=== PATIENT | female | born 1940 | race Hispanic/Latino ===

== ENCOUNTER 2019-11-03 06:38 | Inpatient (IN) | payer OTHER ==
[2019-11-03 07:47] LABS: Absolute Lymphocytes (CBC) 2.5 K/uL (0.7-4.9); Basophils % 0.6 % (0-1.3); Hematocrit 43.2 % (36.0-45.0); Lymphocytes % 20.7 % (15.3-44.8); MPV 9.8 fL (7.6-11.3); RBC Red Blood Cell Count 4.61 M/uL (3.86-4.86)
[2019-11-03] MEDS ORDERED: ONDANSETRON 4 MG/2 ML VIAL ONE (07:55)
[2019-11-03] MEDS ORDERED: MORPHINE 4 MG/ML SYR ONE (07:55)
[2019-11-03 08:11] LABS: Albumin 2.8 g/dL (3.4-5.0); Bilirubin Direct 0.2 mg/dL (0-0.2); Bilirubin Total 0.6 mg/dL (0.2-1.0); Potassium 3.6 mmol/L (3.5-5.1); Protein, Total 7.3 g/dL (6.4-8.2)
--- NOTE | 2019-11-03 10:20 | RAD REPORT ---
EXAM DESCRIPTION: CTAbdomen Pelvis W Contrast - 11/03/2019 10:07 am CLINICAL HISTORY: Abdominal pain. abd pain COMPARISON: CT ABD PELVIS W CONTRAST dated 03/15/2009; CT ABD PELVIS W CONTRAST dated 07/14/2008; CT AB D PELVIS W CONTRAST dated 07/08/2008 TECHNIQUE: Biphasic CT imaging of the abdomen and pelvis was performed with 100 ml non-ionic IV cont rast. All CT scans are performed using dose optimization technique as appropriate and may include automated exposure control or mA/KV adjustment according to patient size. FINDINGS: The lung bases are clear. There is dilatation of the biliary system to a moderate degree noted. The intrahepatic biliary tree a nd pancreatic duct appear moderately dilated but only fractionally progressive relative to the 2009 c omparative study. Cholecystectomy clips. No aggressive liver lesion. The spleen, pancreas, adrenal glands and kidneys show no acute process. There is no evidence of bowel obstruction, free fluid collection or free air in the abdomen. 7-8 cm l ength of the sigmoid colon shows moderate surrounding inflammation with multiple diverticula present. This is most compatible with moderate acute diverticulitis. No peridiverticular abscess seen. The ap pendix is normal. Large right inguinal hernia is present containing small bowel loops without obstruc tion. Small fat containing left inguinal hernia. Small fat containing umbilical hernia. No evidence o f significant lymphadenopathy. No suspicious bony findings. IMPRESSION: Moderately severe acute sigmoid diverticulitis is noted without abscess.
[2019-11-03] MEDS ORDERED: ACETAMINOPHEN 500 MG TAB PO PRN (10:29)
[2019-11-03] MEDS ORDERED: ONDANSETRON 4 MG/2 ML VIAL IV PRN (10:29)
[2019-11-03] MEDS ORDERED: MORPHINE 4 MG/ML SYR IV PRN (10:29)
[2019-11-03 10:56] LABS: Urine Bacteria <20 /HPF (<20); Urine Culture Reflex Order NOT NEEDED; Urine RBC <5 /HPF (NONE SEEN)
[2019-11-03 14:00] VITALS: BMI 38.2
[2019-11-03] MEDS: Levofloxacin 750mg IV 750 MG/150 ML BAG IV SCH (14:11)
[2019-11-03] MEDS: D5 0.45 NS 1,000 ML IV SCH ×3 (14:11→23:47)
[2019-11-03] MEDS: ENOXAPARIN 40 MG/0.4 ML SQ SCH (16:29)
[2019-11-03] MEDS: METRONIDAZOLE 500mg IVPB 500 MG/100 ML BAG IV SCH (16:29)
[2019-11-04] MEDS: METRONIDAZOLE 500mg IVPB 500 MG/100 ML BAG IV SCH ×3 (00:05→16:50)
[2019-11-04 04:26] LABS: Absolute Lymphocytes (CBC) 1.7 K/uL (0.7-4.9); Basophils % 0.6 % (0-1.3); Hematocrit 37.2 % (36.0-45.0); RBC Red Blood Cell Count 3.99 M/uL (3.86-4.86)
[2019-11-04 04:42] LABS: Albumin 2.1 g/dL (3.4-5.0); Bilirubin Direct 0.3 mg/dL (0-0.2); Bilirubin Total 0.8 mg/dL (0.2-1.0); Potassium 3.1 mmol/L (3.5-5.1); Protein, Total 5.7 g/dL (6.4-8.2)
[2019-11-04 05:30] LABS: Blood Morphology Comment NOT SEEN (NOT SEEN); Platelet Estimate ADEQ
--- NOTE | 2019-11-04 07:20 | HP ---
Date of Admission: 11/03/2019 Chief Complaint: Abdominal pain. History Of Present Illness: 79-year-old female patient who came into emergency room with 7-10 days h istory of progressively increasing abdominal pain associated with some constipation and fever. She d enies any blood in stool. Last bowel movement was day ago, but prior to that she did not have bowel for 2 or 3 days. Normally, she has bowel movement on a daily basis. Considering increasing abdomina l pain, she came into emergency room. After she was evaluated in the ER, she was admitted to the [facility] with diverticulitis problem. Allergies: NO KNOWN ALLERGIES. Medications: Aspirin 81 mg daily, vitamin D3 2000 unit daily, gabapentin 300 mg 1 capsule at bedtime , lisinopril/hydrochlorothiazide 20/12.5, takes 1 tablet by mouth 2 times a day, leflunomide 20 mg, a nd prednisone 5 mg. Review of Systems: GI: As mentioned above. Constitutional: As mentioned above. All other systems reviewed and negative. Past Medical History: Significant for peripheral neuropathy, hypothyroidism, hypertension, hyperlipi demia, diverticulosis, leg edema, varicose veins, osteoarthritis, rheumatoid arthritis, vitamin D def iciency. Past Surgical History: Cataract surgery, cholecystectomy, hysterectomy, knee surgery. Family History: Father , had hypertension and asthma. Mother also , had hypertension. Brot her had liver cancer. Sister had pancreatic cancer. Social History: Negative for smoking and alcohol use. Physical Examination: Vital signs: Height 4 feet, inches, weight pounds, temperature , pulse , blood pressure , respiratory rate General: Awake, alert, oriented, not in distress. HEENT: Head atraumatic, normocephalic. Conjunctivae nonerythematous. Sclerae white. Mouth, no thr ush or edema noted. Ears/Nose, no mass, lesion, discharge noted. Neck: Supple. No JVD, lymph nodes, bruit, thyromegaly noted. Lungs: Bilateral good equal air entry. Clear to auscultation. No rhonchi. No rales. Heart: Normal heart sounds, no murmur or gallop. Abdomen: Presence of tenderness in right lower quadrant, suprapubic and left lower quadrant. No louise ound tenderness. Bowel sounds normoactive. No distention of abdomen. No hepatosplenomegaly. No br uit. Extremities: No leg edema. No calf tenderness. Skin: No rash, ulcer, cellulitis. Lymphatics: No lymph node enlargement in neck, supraclavicular, infraclavicular region. Neuro: No focal neurological deficit. Chest: Unremarkable. External Genitalia: Deferred. Rectal: Deferred. Laboratory Data: White count 12, hemoglobin 14.1, platelets 200. Sodium 143, potassium 3.6, chlorid e 107, bicarb 29, BUN 13, creatinine 0.85, glucose 97. Liver function tests unremarkable. Lipase 91 . CAT scan of abdomen and pelvis shows [id number] sigmoid diverticulitis without any abscess . Impression: 1.Acute diverticulitis without perforation, without bleeding. 2.Hypertension. 3.Peripheral neuropathy. 4.Hypothyroidism. 5.Hyperlipidemia. 6.Rheumatoid arthritis. 7.Osteoarthritis, multiple sites. Plan: Admit the patient to hospital for further evaluation and management of this problem. Patient is appropriate for inpatient and is expected to spend 2 midnights in hospital. We will go ahead and keep her n.p.o. Home medications will be continued per order. DVT prophylaxis will be given. Give IV fluid and IV antibiotics per order. Pain medications and nausea medications on as needed basis wi ll be given. Details and plan of treatment discussed with her. I will see her tomorrow for followup . GARTH/JANL Voice ID: [id number]
[2019-11-04 08:14] LABS: Absolute Lymphocytes (CBC) 1.7 K/uL (0.7-4.9); Basophils % 0.6 % (0-1.3); Hematocrit 39.4 % (36.0-45.0); Lymphocytes % 25.3 % (15.3-44.8); MPV 9.5 fL (7.6-11.3); RBC Red Blood Cell Count 4.22 M/uL (3.86-4.86)
[2019-11-04 08:26] LABS: Albumin 2.3 g/dL (3.4-5.0); Bilirubin Total 0.8 mg/dL (0.2-1.0); Magnesium 2.2 mg/dL (1.8-2.4); Potassium 3.2 mmol/L (3.5-5.1); Protein, Total 6.3 g/dL (6.4-8.2)
[2019-11-04] MEDS: hydroCHLOROthiazide 12.5 MG CAP PO SCH (08:47)
[2019-11-04] MEDS: lisinopriL 20 MG TAB PO SCH (08:48)
[2019-11-04] MEDS: predniSONE 5 MG TAB PO SCH (08:49)
[2019-11-04] MEDS ORDERED: POTASSIUM CL SA 10 MEQ TAB PO ONE (08:56)
[2019-11-04] MEDS ORDERED: HOME MED 1 EA UNK (Lisinopril/Hydrochlorothiazide [Lisinopril-Hctz 20-12.5 Mg Tab] 1 EACH) PO SCH (09:00)
[2019-11-04] MEDS: D5 0.45 NS 1,000 ML IV SCH (09:02)
[2019-11-04] MEDS: Levofloxacin 750mg IV 750 MG/150 ML BAG IV SCH (12:10)
[2019-11-04] MEDS: cloNIDine HCL 0.1 MG TAB PO PRN ×2 (13:02→21:33)
[2019-11-04] MEDS: ENOXAPARIN 40 MG/0.4 ML SQ SCH (16:51)
--- NOTE | 2019-11-04 20:27 | PN ---
Date of Progress Note: 11/04/2019 Subjective: Patient was seen this morning for followup. She was lying in bed, not in any distress. Overall, her abdominal pain is better today compared to yesterday. No new complaints reported. No nausea, no vomiting. Objective: Vital signs: Reviewed. HEENT: Unremarkable. Lungs: Clear to auscultation. Cardiac: Heart sounds normal. Abdomen: Soft. Bowel sounds normal. No guarding, rigidity, distention. Presence of tenderness in the left lower quadrant, but it is better today than yesterday. Extremities: No leg edema. Laboratory Data: White count 6.9, hemoglobin 12.5, platelets 155. Sodium 140, potassium 3.1, chlori de 108, bicarb 29, BUN 10, creatinine 0.78, glucose 108, SGOT 227, SGPT 226, lipase 734. Impression: 1.Acute diverticulitis. 2.Hypokalemia. 3.Acute hepatitis. 4.Acute pancreatitis. Plan: Patient's potassium was low which will be corrected with electrolyte replacement protocol. He r liver enzymes were abnormal today. Yesterday, her liver function was normal. Considering this sig nificant abnormality that we saw this morning compared to yesterday, we decided to repeat her blood w ork to make sure that this was not anything like lab error. Repeat blood work results reviewed and h er liver function test unlikely is still abnormal. So at this point, I suspect that she has acute he patitis and acute pancreatitis due to infectious etiology. Yesterday's CAT scan results reviewed. P ancreas was normal. No need to repeat any imaging study at this point. Clinically, her abdominal pa in is better today than yesterday. We will start her on clear liquid diet today. Ambulation was enc ouraged. We will see her tomorrow for followup. We will repeat blood work tomorrow. Depending on h er condition and blood test results, we will decide if we can possibly discharge her to go home tomor row or not. We will also get acute hepatitis panel done tomorrow morning with her next blood work. Reduce IV fluid to 50 cc/hour. Patient's blood pressure was elevated today. She will continue her h ome medications, but p.r.n. use of clonidine was ordered. GARTH/MODL Voice ID: [id number] Report ID: [id number]
[2019-11-04] MEDS ORDERED: GABAPENTIN 300 MG CAP PO SCH (21:00)
[2019-11-05] MEDS: METRONIDAZOLE 500mg IVPB 500 MG/100 ML BAG IV SCH ×2 (00:13→08:19)
[2019-11-05] MEDS: D5 0.45 NS 1,000 ML IV SCH (04:13)
[2019-11-05] MEDS: cloNIDine HCL 0.1 MG TAB PO PRN (04:14)
[2019-11-05 05:50] LABS: Absolute Lymphocytes (CBC) 1.8 K/uL (0.7-4.9); Basophils % 0.8 % (0-1.3); Hematocrit 37.4 % (36.0-45.0); Lymphocytes % 30.1 % (15.3-44.8); MPV 9.7 fL (7.6-11.3); RBC Red Blood Cell Count 4.01 M/uL (3.86-4.86)
[2019-11-05 08:17] LABS: Albumin 2.2 g/dL (3.4-5.0); Bilirubin Total 0.4 mg/dL (0.2-1.0); Ferritin 1177.1 ng/mL (8-388); Magnesium 2.2 mg/dL (1.8-2.4); Potassium 3.6 mmol/L (3.5-5.1); Protein, Total 5.7 g/dL (6.4-8.2)
[2019-11-05] MEDS: predniSONE 5 MG TAB PO SCH (08:20)
[2019-11-05] MEDS: lisinopriL 20 MG TAB PO SCH (08:20)
[2019-11-05] MEDS: hydroCHLOROthiazide 12.5 MG CAP PO SCH (08:23)
[2019-11-05] MEDS ORDERED: ENSURE CLEAR 200 ML CAN PO SCH (09:00)
[2019-11-05 09:14] VITALS: O2SAT 95
[2019-11-05] MEDS ORDERED: POTASSIUM CL SA 10 MEQ TAB PO ONE (09:38)
[2019-11-05] MEDS: Levofloxacin 750mg IV 750 MG/150 ML BAG IV SCH (10:08)
[2019-11-05 11:36] VITALS: BP 148/83; TEMP 97.8
--- NOTE | 2019-11-06 21:11 | DS ---
Date of Discharge: 11/05/2019 Disposition: Discharged to go home. Physical Examination: HEENT: Unremarkable. Lungs: Clear to auscultation. Heart: Sounds normal. Abdomen: Soft. Bowel sounds normal. No guarding, rigidity, tenderness, or distention. Extremities: No leg edema. Laboratory Data: Labs done during this hospitalization: Initial white count on 11/03/2019 was 12, h emoglobin 14.1, platelets 200. Today on day of discharge, white count 6.1, hemoglobin 12.6, platelet s 161. Initial chemistry, sodium 143, potassium 3.6, chloride 107, bicarb 29, BUN 13, creatinine 0.8 5, glucose 97. Liver function tests were normal. This was on 11/03/2019. Next day which is on 10/08, potassium was low at 3.1. SGOT elevated to 227, SGPT 226, lipase 734. Today, on day of disc harge, her potassium is normal. Liver function test still abnormal, but better than yesterday. Hospital Course: An 79-year-old female patient came into emergency room with complaints of abdominal pain. Please see dictated H and P for more information. After patient was evaluated in emergency r oom, she was admitted to the hospital with acute diverticulitis without any complications. She was i nitially kept n.p.o. IV fluid and IV antibiotic was started. Subsequently, diet was started and adv anced as she tolerated that very well. There was no evidence of any blood in stool. When she first came into emergency room, her liver function test was normal. Next day was abnormality noted in her liver function tests with elevation of SGOT, SGPT, and her lipase was elevated. Her abdominal pain w as in the lower part of abdomen and tenderness was also in the left upper quadrant, left lower quadra nt and right lower quadrant when she first came in, which actually improved and by the time she went home, all that tenderness had resolved. She did not have any periumbilical, epigastric, or right upp er quadrant tenderness. There was no other sign or symptom indicating her abnormal liver function te sts and have no elevated lipase. I strongly suspect it is acute hepatitis and acute pancreatitis rel ated to this infection, but she has not shown any abnormality in the liver or pancreas on the CAT sca n which was done when she first came into emergency room. So, no need for any further intervention f or that. I have also ordered acute hepatitis panel and we will follow up on that result on outpatien t basis. Overall, her condition has improved and details were discussed with the patient's daughter who was at bedside today on the day of discharge and I will see her at office for followup on which is 11/11/2019. Discharge Medications And Instructions: 1.Continue all prior home medications. 2.Levaquin 500 mg daily for 10 days. 3.Metronidazole 500 mg twice a day for 10 days. Final Diagnoses: 1.Acute diverticulitis without abscess, without perforation, without bleeding. 2.Acute hepatitis. 3.Acute pancreatitis. 4.Hypertension. 5.Hypokalemia. GARTH/MODL Voice ID: [id number] Report ID: [id number]
[2019-11-09 20:09] LABS: HBsAG Nonreactive (Nonreactive)
== END 2019-11-05 11:48 | disposition home or self-care (01) | DRG 391 ==
LOC: ER 06:38 → ERHOLD 10:29 → 4TH 12:17
PROVIDERS: ADMIT Internal Medicine; ATTEND Internal Medicine
DX: K57.32 Diverticulitis of large intestine without perforation or abscess without bleeding (principal); K85.90 Acute pancreatitis without necrosis or infection, unspecified; B17.9 Acute viral hepatitis, unspecified; I10 Essential (primary) hypertension; E87.6 Hypokalemia; E78.5 Hyperlipidemia, unspecified; Z90.49 Acquired absence of other specified parts of digestive tract; Z90.710 Acquired absence of both cervix and uterus; G62.9 Polyneuropathy, unspecified; E03.9 Hypothyroidism, unspecified; M06.9 Rheumatoid arthritis, unspecified; M19.90 Unspecified osteoarthritis, unspecified site
CPT/HCPCS: 36415; 74177; 80048; 80053; 80074; 80076; 81015; 82728; 83690; 83735; 84132; 85025; J1650; J2405; J7512; J7799; Q9967

== ENCOUNTER 2020-01-23 06:48 | Inpatient (IN) | payer OTHER ==
[2020-01-23 07:31] LABS: Absolute Lymphocytes (CBC) 1.9 K/uL (0.7-4.9); Basophils % 0.6 % (0-1.3); Hematocrit 41.9 % (36.0-45.0); Lymphocytes % 28.4 % (15.3-44.8); MPV 9.5 fL (7.6-11.3); RBC Red Blood Cell Count 4.52 M/uL (3.86-4.86)
[2020-01-23] MEDS ORDERED: FAMOTIDINE 20 MG/2 ML VIAL IV ONE (07:35)
[2020-01-23] MEDS ORDERED: MORPHINE 4 MG/ML SYR ONE (07:35)
[2020-01-23] MEDS ORDERED: ONDANSETRON 4 MG/2 ML VIAL ONE (07:35)
[2020-01-23] MEDS ORDERED: NA CHLORIDE 0.9% 1,000 ML ONE (07:35)
[2020-01-23 07:45] LABS: Albumin 2.6 g/dL (3.4-5.0); Bilirubin Direct 0.1 mg/dL (0-0.2); Bilirubin Total 0.4 mg/dL (0.2-1.0); Potassium 3.4 mmol/L (3.5-5.1); Protein, Total 6.9 g/dL (6.4-8.2)
[2020-01-23] MEDS ORDERED: METRONIDAZOLE 500mg IVPB 500 MG/100 ML BAG IV ONE (08:01)
[2020-01-23] MEDS ORDERED: CEFTRIAXONE/SWI 1gm 1 GM/10 ML SYR ONE (08:01)
--- NOTE | 2020-01-23 08:20 | RAD REPORT ---
EXAM DESCRIPTION: CT - Abdomen Pelvis W Contrast - 01/23/2020 8:02 am CLINICAL HISTORY: Abdominal pain COMPARISON: January 20, 2020 and 2008 TECHNIQUE: Computed axial tomography of the abdomen pelvis was obtained. 100 cc Isovue-300 was admin istered intravenously. Oral contrast was not requested which limits evaluation of bowel. All CT scans are performed using dose optimization technique as appropriate and may include automated exposure control or mA/KV adjustment according to patient size. FINDINGS: The liver, spleen, pancreas, adrenal and right kidney appear unremarkable. Small intermediate density mass extending off of the left kidney without significant change 2009 like ly benign. Cholecystectomy Normal appendix. Right inguinal hernia contains loop of nondilated bowel. Small left inguinal hernia contains fat Diverticula stem from the colon. Mild stranding adjacent to sigmoid colon. No free air. No abscess Small umbilical hernia IMPRESSION: Mild sigmoid diverticulitis
--- NOTE | 2020-01-23 08:41 | EDPHYS ---
Physician Documentation [facility] Name: Jigna Horne Age: 79 yrs Sex: Female : 1940 Arrival Date: 01/23/2020 Time: 06:51 Bed 5 Private MD: ED Physician Katrin Gamble HPI: 01/22 08:37 This 79 yrs old Female presents to ER via Wheelchair with complaints of ma2 Abdominal Pain, Nausea. 08:37 The patient presents to the emergency department with nausea, vomiting, abdominal pain. ma2 Onset: The symptoms/episode began/occurred gradually, 3 day(s) ago. Possible causes: unknown. Associated signs and symptoms: Pertinent negatives: anorexia, constipation, diarrhea, fever, flatulence, GI bleeding. Severity of symptoms: At their worst the symptoms were severe in the emergency department the symptoms are unchanged. The patient has experienced similar episodes in the past. Historical: - Allergies: 07:39 No Known Drug Allergies; ph - Home Meds: 07:39 amlodipine oral [Active]; aspirin 81 mg Oral chew 1 tab once daily [Active]; gabapentin ph Oral [Active]; Hydrochlorothiazide Oral [Active]; Hydrocodone-Acetaminophen Oral [Active]; levothyroxine oral [Active]; prednisone 5 mg Oral tab once daily [Active]; - PMHx: 07:39 High Cholesterol; Hypertension; ph - PSHx: 07:39 Hysterectomy; Cholecystectomy; left knee; ph - Immunization history:: Adult Immunizations unknown. - Social history:: Smoking status: Patient denies any tobacco usage or history of. Patient/guardian denies using alcohol, street drugs, The patient lives with family. - Family history:: not pertinent. ROS: 08:37 Constitutional: Negative for fever, chills, and weight loss. ma2 08:37 All other systems are negative. Exam: 08:37 Constitutional: This is a well developed, well nourished patient who is awake, alert, ma2 and in no acute distress. Eyes: Pupils equal round and reactive to light, extra-ocular motions intact. Lids and lashes normal. Conjunctiva and sclera are non-icteric and not injected. Cornea within normal limits. Periorbital areas with no swelling, redness, or edema. Chest/axilla: Normal chest wall appearance and motion. Nontender with no deformity. No lesions are appreciated. Cardiovascular: Regular rate and rhythm with a normal S1 and S2. No gallops, murmurs, or rubs. Normal PMI, no JVD. No pulse deficits. Respiratory: Lungs have equal breath sounds bilaterally, clear to auscultation and percussion. No rales, rhonchi or wheezes noted. No increased work of breathing, no retractions or nasal flaring. Abdomen/GI: Soft, epigastric/periumbilical ttp , with normal bowel sounds. No distension or tympany. No guarding or rebound. No evidence of tenderness throughout. Skin: Warm, dry with normal turgor. Normal color with no rashes, no lesions, and no evidence of cellulitis. MS/ Extremity: Pulses equal, no cyanosis. Neurovascular intact. Full, normal range of motion. Neuro: Awake and alert, GCS 15, oriented to person, place, time, and situation. Cranial nerves II-XII grossly intact. Motor strength 5/5 in all extremities. Sensory grossly intact. Cerebellar exam normal. Normal gait. Vital Signs: 07:15 BP 159 / 79; Pulse 71; Resp 18; Temp 98.2; Pulse Ox 92% on R/A; kj1 07:35 BP 185 / 85; Pulse 71; Resp 18; Pulse Ox 97% on R/A; ph 08:34 BP 209 / 85; Pulse 74; Resp 18; Pulse Ox 98% on R/A; ph 10:12 BP 159 / 85; Pulse 72; Resp 18; Pulse Ox 98% on 2 lpm NC; ph 11:41 BP 158 / 94; Pulse 60; Resp 17; Pulse Ox 98% on R/A; tw2 12:49 BP 162 / 87; Pulse 67; Resp 18; Temp 97.8; Pulse Ox 97% on R/A; ph MDM: 07:14 Patient medically screened. ma2 08:37 Differential diagnosis: gastritis, pancreatitis, appendicitis, diverticulitis, viral ma2 gastroenteritis. Data reviewed: vital signs, nurses notes. Counseling: I had a detailed discussion with the patient and/or guardian regarding: the historical points, exam findings, and any diagnostic results supporting the discharge/admit diagnosis, the presence of at least one elevated blood pressure reading (>120/80) during this emergency department visit, the need for outpatient follow up. Response to treatment: the patient's symptoms have markedly improved after treatment. 08:40 ED course: pain is intractable. [facility] 01/22 07:15 Order name: Basic Metabolic Panel; Complete Time: 08:29 mn2 01/22 07:15 Order name: CBC with Diff; Complete Time: 10:26 mn2 01/22 07:15 Order name: Hepatic Function; Complete Time: 08:29 mn2 01/22 07:15 Order name: Lipase; Complete Time: 08:29 [facility] 01/22 08:45 Order name: Manual Differential; Complete Time: 10:26 [facility] 01/22 09:25 Order name: Urine Dipstick--Ancillary (enter results) eb 01/22 07:15 Order name: CT Abd/Pelvis - IV Contrast Only; Complete Time: 08:29 [facility] 01/22 11:02 Order name: Basic Metabolic Panel [facility] 01/22 11:02 Order name: Basic Metabolic Panel [facility] 01/22 11:02 Order name: CBC with Automated Diff [facility] 01/22 11:02 Order name: CBC with Automated Diff [facility] 01/22 11:02 Order name: Liver (Hepatic) Function [facility] 01/22 11:02 Order name: Liver (Hepatic) Function [facility] 01/22 07:15 Order name: IV Saline Lock; Complete Time: 07:35 [facility] 01/22 07:15 Order name: Labs collected and sent; Complete Time: 07:35 [facility] 01/22 07:15 Order name: Urine Dipstick-Ancillary (obtain specimen); Complete Time: 08:50 [facility] 01/22 11:02 Order name: CONS Pharmacy Consult [facility] 01/22 11:02 Order name: NPO [facility] Administered Medications: 07:34 Drug: NS 0.9% 1000 ml Route: IV; Rate: 1 bolus; Site: right antecubital; ph 10:08 Follow up: Response: No adverse reaction; IV Status: Completed infusion; IV Intake: ph 1000ml 07:35 Drug: Zofran (Ondansetron) 4 mg Route: IVP; Site: right antecubital; ph 10:10 Follow up: Response: No adverse reaction; Nausea is decreased ph 07:35 Drug: Pepcid 20 mg Route: IVP; Site: right antecubital; ph 10:11 Follow up: Response: No adverse reaction ph 07:36 Drug: morphine 4 mg Route: IVP; Site: right antecubital; ph 08:00 Follow up: Response: No adverse reaction; Pain is unchanged, physician notified ph 08:15 Drug: Rocephin 1 grams Route: IV; Rate: calculated rate; Site: right antecubital; ph 08:30 Follow up: Response: No adverse reaction; IV Status: Completed infusion ph 08:30 Drug: Flagyl 500 mg Volume: 100 ml; Route: IVPB; Rate: 200 ml/hr; Infused Over: 30 ph mins; Site: right antecubital; 09:00 Follow up: Response: No adverse reaction; IV Status: Completed infusion ph 08:50 Drug: Dilaudid 1 mg Route: IVP; Site: right antecubital; ph 10:12 Follow up: Response: No adverse reaction; Pain is decreased ph Disposition: 01/23/20 08:40 Hospitalization ordered by César Alanis for Inpatient Admission. Preliminary diagnosis are Diverticulitis of large intestine without perforation or abscess without bleeding, Other abdominal pain - intractable. - Bed requested for Telemetry/MedSurg (Inpatient). - Status is Inpatient Admission. ph - Condition is Stable. - Problem is new. - Symptoms are unchanged. Signatures: Dispatcher [employer] EDMS Hoda Nelson RN RN dw Hall, Patricia, RN RN ph Alzahri, Mohammad, MD MD ma2 Corrections: (The following items were deleted from the chart) 11:38 08:40 Hospitalization Ordered by César Alanis MD for Inpatient Admission. Preliminary dw diagnosis is Diverticulitis of large intestine without perforation or abscess without bleeding; Other abdominal pain - intractable. Bed requested for Telemetry/MedSurg (Inpatient). Status is Inpatient Admission. Condition is Stable. Problem is new. Symptoms are unchanged. ma2 13:17 11:38 01/23/2020 08:40 Hospitalization Ordered by César Alanis MD for Inpatient ph Admission. Preliminary diagnosis is Diverticulitis of large intestine without perforation or abscess without bleeding; Other abdominal pain - intractable. Bed requested for Telemetry/MedSurg (Inpatient). Status is Inpatient Admission. Condition is Stable. Problem is new. Symptoms are unchanged. dw
--- NOTE | 2020-01-23 08:41 | ER ---
Nurse's Notes [facility] Name: Jigna Horne Age: 79 yrs Sex: Female : 1940 Arrival Date: 01/23/2020 Time: 06:51 Bed 5 Private MD: Diagnosis: Diverticulitis of large intestine without perforation or abscess without bleeding;Other abdominal pain-intractable Presentation: 01/22 07:35 Chief complaint: Patient states: Upper abdominal pain radiating to chest that started ph last night, also c/o nausea, states, " I took my night time pills and it felt like they got stuck so I drank a bunch of water and after that my stomach started hurting." Pt denies vomiting, diarrhea or fever. Coronavirus screen: Client denies travel out of the [place] in the last 14 days. At this time, the client does not indicate any symptoms associated with coronavirus-19. Ebola Screen: No symptoms or risks identified at this time. Initial Sepsis Screen: Does the patient meet any 2 criteria? No. Patient's initial sepsis screen is negative. Does the patient have a suspected source of infection? No. Patient's initial sepsis screen is negative. Risk Assessment: Do you want to hurt yourself or someone else? Patient reports no desire to harm self or others. 07:35 Method Of Arrival: Wheelchair ph 07:35 Acuity: SADIE 3 ph 07:44 Onset of symptoms was January 23, 2020. ph Historical: - Allergies: 07:39 No Known Drug Allergies; ph - Home Meds: 07:39 amlodipine oral [Active]; aspirin 81 mg Oral chew 1 tab once daily [Active]; gabapentin ph Oral [Active]; Hydrochlorothiazide Oral [Active]; Hydrocodone-Acetaminophen Oral [Active]; levothyroxine oral [Active]; prednisone 5 mg Oral tab once daily [Active]; - PMHx: 07:39 High Cholesterol; Hypertension; ph - PSHx: 07:39 Hysterectomy; Cholecystectomy; left knee; ph - Immunization history:: Adult Immunizations unknown. - Social history:: Smoking status: Patient denies any tobacco usage or history of. Patient/guardian denies using alcohol, street drugs, The patient lives with family. - Family history:: not pertinent. Screenin:39 Abuse screen: Denies threats or abuse. Denies injuries from another. Nutritional ph screening: No deficits noted. Tuberculosis screening: No symptoms or risk factors identified. Fall Risk No fall in past 12 months (0 pts). No secondary diagnosis (0 pts). IV access (20 points). Ambulatory Aid- None/Bed Rest/Nurse Assist (0 pts). Gait- Normal/Bed Rest/Wheelchair (0 pts) Mental Status- Oriented to own ability (0 pts). Total Hernandes Fall Scale indicates No Risk (0-24 pts). Assessment: 07:43 General: Appears in no apparent distress. uncomfortable, slender, well groomed, ph Behavior is calm, cooperative, appropriate for age. Pain: Complains of pain in epigastric area, right upper quadrant and left upper quadrant Pain radiates to chest. Neuro: Level of Consciousness is awake, alert, obeys commands, Oriented to person, place, time, situation. Cardiovascular: Capillary refill < 3 seconds in bilateral fingers Patient's skin is warm and dry. Respiratory: Airway is patent Respiratory effort is even, unlabored, Respiratory pattern is regular, symmetrical. GI: Abdomen is non-distended, Reports upper abdominal pain, nausea. Derm: Skin is intact, is healthy with good turgor, Skin is pink, warm \\T\\ dry. Musculoskeletal: Circulation, motion, and sensation intact. Range of motion: intact in all extremities. 11:35 Reassessment: Patient appears in no apparent distress at this time. Patient and/or ph family updated on plan of care and expected duration. Pain level reassessed. Patient is alert, oriented x 3, equal unlabored respirations, skin warm/dry/pink. Pt resting quietly, awaiting room assignment. 12:49 Reassessment: Patient appears in no apparent distress at this time. Patient and/or ph family updated on plan of care and expected duration. Pain level reassessed. Patient is alert, oriented x 3, equal unlabored respirations, skin warm/dry/pink. Report called to Jacklyn on 2nd floor Patient states feeling better. Vital Signs: 07:15 BP 159 / 79; Pulse 71; Resp 18; Temp 98.2; Pulse Ox 92% on R/A; kj1 07:35 BP 185 / 85; Pulse 71; Resp 18; Pulse Ox 97% on R/A; ph 08:34 BP 209 / 85; Pulse 74; Resp 18; Pulse Ox 98% on R/A; ph 10:12 BP 159 / 85; Pulse 72; Resp 18; Pulse Ox 98% on 2 lpm NC; ph 11:41 BP 158 / 94; Pulse 60; Resp 17; Pulse Ox 98% on R/A; tw2 12:49 BP 162 / 87; Pulse 67; Resp 18; Temp 97.8; Pulse Ox 97% on R/A; ph ED Course: 06:51 Patient arrived in ED. cl3 07:14 Katrin Gamble MD is Attending Physician. ma2 07:15 Adrianna Sandoval, QUIQUE is Primary Nurse. ph 07:18 Initial lab(s) drawn, by me, sent to lab. Inserted saline lock: 22 gauge in right kj1 antecubital area, using aseptic technique. Blood collected. 07:38 Triage completed. ph 07:40 Basic Metabolic Panel Sent. kj1 07:40 Hepatic Function Sent. kj1 07:40 Lipase Sent. kj1 07:41 Patient has correct armband on for positive identification. Placed in gown. Bed in low ph position. Call light in reach. Side rails up X 1. Pulse ox on. NIBP on. Door closed. Noise minimized. Warm blanket given. 07:42 Arm band placed on. ph 08:03 CT Abd/Pelvis - IV Contrast Only In Process Unspecified. EDMS 08:03 CT completed. Patient tolerated procedure well. Patient moved back from CT. bq 08:40 César Alanis MD is Hospitalizing Provider. ma2 10:12 No provider procedures requiring assistance completed. Patient admitted, IV remains in ph place. Administered Medications: 07:34 Drug: NS 0.9% 1000 ml Route: IV; Rate: 1 bolus; Site: right antecubital; ph 10:08 Follow up: Response: No adverse reaction; IV Status: Completed infusion; IV Intake: ph 1000ml 07:35 Drug: Zofran (Ondansetron) 4 mg Route: IVP; Site: right antecubital; ph 10:10 Follow up: Response: No adverse reaction; Nausea is decreased ph 07:35 Drug: Pepcid 20 mg Route: IVP; Site: right antecubital; ph 10:11 Follow up: Response: No adverse reaction ph 07:36 Drug: morphine 4 mg Route: IVP; Site: right antecubital; ph 08:00 Follow up: Response: No adverse reaction; Pain is unchanged, physician notified ph 08:15 Drug: Rocephin 1 grams Route: IV; Rate: calculated rate; Site: right antecubital; ph 08:30 Follow up: Response: No adverse reaction; IV Status: Completed infusion ph 08:30 Drug: Flagyl 500 mg Volume: 100 ml; Route: IVPB; Rate: 200 ml/hr; Infused Over: 30 ph mins; Site: right antecubital; 09:00 Follow up: Response: No adverse reaction; IV Status: Completed infusion ph 08:50 Drug: Dilaudid 1 mg Route: IVP; Site: right antecubital; ph 10:12 Follow up: Response: No adverse reaction; Pain is decreased ph Intake: 10:08 IV: 1000ml; Total: 1000ml. ph Outcome: 08:40 Decision to Hospitalize by Provider. ma2 12:49 Admitted to Med/surg accompanied by tech, via wheelchair, room 218, with chart, Report ph called to QUIQUE Villasenor 12:49 Condition: stable 13:17 Patient left the ED. ph Signatures: Dispatcher [employer] EDMS Maria Del Carmen Morrow Patricia, RN RN ph Nery Raya RN RN tw2 Katrin Gamble MD MD ma2 Veronica Ocampo Charde cl3 Corrections: (The following items were deleted from the chart) 11:42 11:41 BP 180 / 115; Pulse 60bpm; Resp 17bpm; Pulse Ox 98% RA; tw2 tw2
[2020-01-23 08:45] LABS: Blood Morphology Comment NOT SEEN (NOT SEEN); Platelet Estimate ADEQ
[2020-01-23] MEDS ORDERED: HYDROMORPHONE HCL 1 MG/ML INJ ONE (08:56)
[2020-01-23 10:57] LABS: Urine Blood NEGATIVE (NEG); Urine Glucose NEGATIVE (NEG); Urine Protein NEGATIVE (NEG)
[2020-01-23] MEDS ORDERED: INSULIN -REGULAR HUMAN 50 UNIT/0.5 ML ML SQ SCH (11:30)
[2020-01-23] MEDS: INSULIN -REGULAR HUMAN 50 UNIT/0.5 ML ML SQ SCH ×2 (12:00→16:23)
[2020-01-23] MEDS: METRONIDAZOLE 500mg IVPB 500 MG/100 ML BAG IV SCH ×3 (13:00→23:32)
[2020-01-23] MEDS: D5 0.45 NS 1,000 ML IV SCH ×2 (13:35→23:32)
[2020-01-23 13:44] VITALS: BMI 37.5
[2020-01-23] MEDS: MORPHINE 4 MG/ML SYR IV PRN ×2 (14:44→18:14)
[2020-01-23] MEDS: CEFTRIAXONE IVP SCH (21:14)
[2020-01-23] MEDS: SWI IVP SCH (21:14)
[2020-01-24 04:22] LABS: Basophils % 0.5 % (0-1.3); Hematocrit 37.4 % (36.0-45.0); Lymphocytes % 20.1 % (15.3-44.8); MPV 9.8 fL (7.6-11.3); RBC Red Blood Cell Count 3.98 M/uL (3.86-4.86)
[2020-01-24 04:37] LABS: Albumin 2.1 g/dL (3.4-5.0); Bilirubin Direct 0.1 mg/dL (0-0.2); Bilirubin Total 0.3 mg/dL (0.2-1.0); Potassium 3.3 mmol/L (3.5-5.1); Protein, Total 6.1 g/dL (6.4-8.2)
[2020-01-24] MEDS: METRONIDAZOLE 500mg IVPB 500 MG/100 ML BAG IV SCH ×3 (05:01→18:22)
[2020-01-24] MEDS: INSULIN -REGULAR HUMAN 50 UNIT/0.5 ML ML SQ SCH ×4 (05:38→18:00)
[2020-01-24] MEDS: KCL 20 MEQ/100 mL IVPB 20 MEQ/100 ML BAG IV SCH ×2 (07:00→09:00)
[2020-01-24] MEDS: FAMOTIDINE 20 MG/2 ML VIAL IV SCH ×2 (09:00→21:13)
[2020-01-24] MEDS ORDERED: POTASSIUM CL SA 10 MEQ TAB PO ONE (09:16)
[2020-01-24] MEDS: ENOXAPARIN 40 MG/0.4 ML SQ SCH (09:20)
[2020-01-24] MEDS: CEFTRIAXONE IVP SCH ×2 (09:20→21:13)
[2020-01-24] MEDS: SWI IVP SCH ×2 (09:20→21:13)
[2020-01-24] MEDS: D5 0.45 NS 1,000 ML IV SCH ×2 (10:53→18:23)
[2020-01-25] MEDS ORDERED: GLUCAGON 1 MG/VIAL IM PRN (00:37)
[2020-01-25] MEDS ORDERED: D50W 25 GM/50 ML SYRINGE/VIAL IV PRN (00:37)
[2020-01-25] MEDS: ONDANSETRON 4 MG/2 ML VIAL IV PRN ×2 (03:06→08:43)
[2020-01-25] MEDS: METRONIDAZOLE 500mg IVPB 500 MG/100 ML BAG IV SCH ×5 (05:56→23:54)
[2020-01-25 07:29] LABS: Potassium 3.1 mmol/L (3.5-5.1)
[2020-01-25] MEDS: INSULIN -REGULAR HUMAN 50 UNIT/0.5 ML ML SQ SCH ×5 (07:30→21:00)
[2020-01-25] MEDS: FAMOTIDINE 20 MG/2 ML VIAL IV SCH ×2 (08:43→21:41)
[2020-01-25] MEDS: ENOXAPARIN 40 MG/0.4 ML SQ SCH (08:43)
[2020-01-25] MEDS: SWI IVP SCH ×2 (08:43→21:48)
[2020-01-25] MEDS: CEFTRIAXONE IVP SCH ×2 (08:43→21:48)
[2020-01-25] MEDS: hydroCHLOROthiazide 12.5 MG CAP PO SCH ×2 (08:44→21:00)
[2020-01-25] MEDS: predniSONE 5 MG TAB PO SCH (08:44)
[2020-01-25] MEDS: D5 0.45 NS 1,000 ML IV SCH ×2 (08:44→21:40)
[2020-01-25] MEDS: ASPIRIN 81 MG CHEWABLE TABLET PO SCH (08:44)
--- NOTE | 2020-01-25 08:46 | HP ---
Date of Admission: 01/24/2020 Chief Complaint: Abdominal pain, bloating, and nausea. History Of Present Illness: This is an 79-year-old female patient, who recently was evaluated in emergency room few days ago with abdominal pain and she was diagnosed as having acute diverticulitis, was discharged to go home with oral antibiotics Cipro and metronidazole. The patient has been taking her antibiotic as prescribed, but her condition did not improve and she started to have bloating and nausea, so she came back to the emergency room yesterday. After she was evaluated, she was admitted to the hospital with failure of outpatient therapy and ongoing abdominal pain, associated with some bloating and nausea. Denies any blood in stool. This morning when I saw her, she told me that abdominal pain has improved significantly and her bloating and nausea continues to be a problem. Allergies: NO KNOWN ALLERGIES. Medications: List reviewed. Review of Systems: GI: As mentioned above. All other systems reviewed and negative. Past Medical History: Significant for peripheral neuropathy, hypothyroidism, hypertension, vitamin D deficiency, diverticulosis, hyperlipidemia, leg edema, varicose veins of lower extremity, osteoarthritis at multiple sites, and rheumatoid arthritis. Past Surgical History: Cataract surgery, cholecystectomy, knee surgery, hysterectomy. Family History: Significant for father and had hypertension and asthma. The mother also and had hypertension. The brother had liver cancer and sister had pancreatic cancer. Social History: Negative for smoking and alcohol use. Physical Examination: Vital Signs: Height 5 feet, weight 192 pounds, temperature 97.9, pulse 67, respiratory rate 18, blood pressure 189/79, oxygen saturation 99%. General: Awake, alert, oriented, not in distress. HEENT: Head atraumatic, normocephalic. Conjunctivae nonerythematous. Sclerae white. Mouth, no thrush or edema noted. Ears/Nose, no mass, lesion, discharge noted. Neck: Supple. No JVD, lymph nodes, bruit, thyromegaly noted. Lungs: Bilateral good equal air entry. Clear to auscultation. No rhonchi. No rales. Heart: Normal heart sounds, no murmur or gallop. Abdomen: Soft, bowel sounds normal. No guarding, rigidity, tenderness, mass, hepatosplenomegaly, distention, or bruit noted. Extremities: No leg edema. No calf tenderness. Skin: No rash, ulcer, cellulitis. Lymphatics: No lymph node enlargement in neck, supraclavicular, infraclavicular region. Neuro: No focal neurological deficit. Chest: Unremarkable. External Genitalia: Deferred. Rectal: Deferred. Laboratory Data: Yesterday white count 6.8, hemoglobin 13.9, platelets 170. This morning white count 5.1, hemoglobin 12.4, platelets 148. Yesterday sodium 142, potassium 3.4, chloride 109, bicarb 28, BUN 8, creatinine 0.78, glucose 96. Liver function tests unremarkable. This time lipase 116. This morning sodium 144, potassium 3.3, chloride 111, bicarb 28, BUN 7, creatinine 0.72, glucose 110. Urinalysis negative. CAT scan of the abdomen and pelvis done in emergency room shows mild sigmoid diverticulitis and diverticular perforation. Impression: 1. Acute diverticulitis without complication. 2. Hypokalemia. 3. Generalized weakness. 4. Debility. 5. Hypertension. 6. Hypothyroidism. 7. Hyperlipidemia. 8. Osteoarthritis, multiple sites. 9. Rheumatoid arthritis. Plan: Admit the patient to hospital for further evaluation and management of this problem. The patient is appropriate for inpatient and is expected to spend 2 midnights in hospital. She has failed outpatient medical management, so she will be admitted to the hospital. We will go ahead and give IV fluid, IV antibiotic, start her on clear liquid diet and will advance her diet as tolerated. Home medications will be continued per order. Ambulation was encouraged. DVT prophylaxis will be given per order. I will see her tomorrow for followup. Plan of treatment was discussed with her. GARTH/JOAN Voice ID: [id number] KYLE
[2020-01-25] MEDS: lisinopriL 20 MG TAB PO SCH ×2 (08:51→21:41)
[2020-01-25] MEDS ORDERED: HOME MED 1 EA UNK (Lisinopril/Hydrochlorothiazide [Lisinopril-Hctz 20-12.5 Mg Tab] 1 EACH) PO SCH (09:00)
[2020-01-25] MEDS ORDERED: POTASSIUM CL SA 10 MEQ TAB PO ONE (12:00)
[2020-01-25] MEDS: CLOTRIMAZOLE 10 MG TROCHE PO SCH ×3 (12:27→21:40)
[2020-01-25] MEDS ORDERED: GABAPENTIN 300 MG CAP PO SCH (21:00)
--- NOTE | 2020-01-25 22:12 | PN ---
Date of Progress Note: 01/25/2020 Subjective: The patient was seen this morning for followup. No new complaints or problems reported by the patient. No abdominal pain. Bloating sensation she has in her stomach is better compared to yesterday. No nausea. No vomiting. Objective: Vital Signs: Reviewed. HEENT: Unremarkable. Lungs: Clear to auscultation. Heart: Sounds normal. Abdomen: Soft. Bowel sounds normal. No guarding, rigidity, tenderness, or distention. Extremities: No leg edema. Laboratory Data: Sodium 139, potassium 3.1, chloride 106, bicarb 30, BUN 3, creatinine 0.66, glucose 103. Impression: 1.Acute diverticulitis. 2.Hypokalemia. Plan: We will continue current medications. Continue antibiotic. The patient is on clear liquid di et, which will be advanced as she tolerates. Ambulation was encouraged. I will see her tomorrow for followup. Possible discharge to go home tomorrow depending on her condition. GARTH/MODL Voice ID: [id number] Report ID: [id number]
[2020-01-26] MEDS: METRONIDAZOLE 500mg IVPB 500 MG/100 ML BAG IV SCH (05:29)
[2020-01-26 05:32] LABS: Absolute Lymphocytes (CBC) 2.2 K/uL (0.7-4.9); Basophils % 0.6 % (0-1.3); Hematocrit 36.7 % (36.0-45.0); Lymphocytes % 41.2 % (15.3-44.8); MPV 9.6 fL (7.6-11.3); RBC Red Blood Cell Count 3.98 M/uL (3.86-4.86)
[2020-01-26 05:47] LABS: Magnesium 2.2 mg/dL (1.8-2.4); Potassium 3.5 mmol/L (3.5-5.1)
[2020-01-26] MEDS: INSULIN -REGULAR HUMAN 50 UNIT/0.5 ML ML SQ SCH (07:30)
[2020-01-26] MEDS ORDERED: POTASSIUM CL SA 10 MEQ TAB PO ONE (08:00)
[2020-01-26 08:21] LABS: Blood Morphology Comment NOT SEEN (NOT SEEN); Platelet Estimate ADEQ; Platelets, Giant FEW PRESENT
[2020-01-26] MEDS: ENOXAPARIN 40 MG/0.4 ML SQ SCH (08:45)
[2020-01-26] MEDS: ASPIRIN 81 MG CHEWABLE TABLET PO SCH (08:46)
[2020-01-26] MEDS: hydroCHLOROthiazide 12.5 MG CAP PO SCH (08:47)
[2020-01-26] MEDS: lisinopriL 20 MG TAB PO SCH (08:47)
[2020-01-26] MEDS: FAMOTIDINE 20 MG/2 ML VIAL IV SCH (08:47)
[2020-01-26] MEDS: predniSONE 5 MG TAB PO SCH (08:47)
[2020-01-26] MEDS: SWI IVP SCH (08:48)
[2020-01-26] MEDS: CLOTRIMAZOLE 10 MG TROCHE PO SCH (08:48)
[2020-01-26] MEDS: CEFTRIAXONE IVP SCH (08:48)
[2020-01-26 09:18] VITALS: BP 182/96
[2020-01-26] MEDS: ONDANSETRON 4 MG/2 ML VIAL IV PRN (10:54)
[2020-01-26 11:28] VITALS: O2SAT 93
[2020-01-26 12:12] VITALS: TEMP 97.1
--- NOTE | 2020-01-27 05:32 | DS ---
Date of Discharge: 01/26/2020 Disposition: Discharged to go home. Physical Examination: HEENT: Unremarkable. Lungs: Clear to auscultation. Heart: Sounds normal. Abdomen: Soft. Bowel sounds normal. No guarding, rigidity, tenderness, or distention. Extremities: No leg edema. Laboratory Data: Upon admission, white count 6.8, hemoglobin 13.9, platelets 170. Last white count today 5.3, hemoglobin 12.6, and a platelet count of 171. Last chemistry today; sodium 144, potassium 3.5, chloride 109, bicarb 32, BUN 2, creatinine 0.76, glucose 112. Hospital Course: This is an 79-year-old female patient who was admitted to the hospital with acute d iverticulitis and failing on outpatient antibiotic treatment. Please see dictated H and P for more i nformation. After the patient was evaluated in the emergency room, she was admitted to the hospital. Initially, she was kept n.p.o.; IV fluid, IV antibiotic were started. The patient was taking Cipro and Flagyl on an outpatient basis. While in the hospital, she was given IV ceftriaxone and Flagyl. Overall, her abdominal pain problem has completely resolved. She had some bloating and nausea probl em. Symptomatic treatment was given to her. Diet was started which was advanced as she tolerated an d she started ambulating well. Overall, her condition has improved. She still has occasional nausea and she does have a prescription for Zofran, which was given to her from emergency room, and she was advised to use it as needed. The patient was also instructed to restart her antibiotic, which is Ci pro and Flagyl as prescribed from emergency room. She was also instructed to continue all her previo usly prescribed home medication as she was taking before. The patient was discharged to go home in s table condition today. Final Diagnoses: 1.Acute diverticulitis without complication. 2.Hypokalemia. 3.Generalized weakness. 4.Debility. 5.Hypertension. 6.Hypothyroidism. 7.Hyperlipidemia. 8.Osteoarthritis, multiple sites. 9.Rheumatoid arthritis. Discharge Instructions: Follow up at my office next week. GARTH/MODL Voice ID: [id number] Report ID: [id number]
== END 2020-01-26 13:33 | disposition home or self-care (01) | DRG 391 ==
LOC: ER 06:48 → ERHOLD 10:55 → 2ND 12:48
PROVIDERS: ADMIT Internal Medicine; ATTEND Internal Medicine
DX: K57.32 Diverticulitis of large intestine without perforation or abscess without bleeding (principal); U07.1 COVID-19; I10 Essential (primary) hypertension; E78.5 Hyperlipidemia, unspecified; E87.6 Hypokalemia; E03.9 Hypothyroidism, unspecified; M19.90 Unspecified osteoarthritis, unspecified site; M06.9 Rheumatoid arthritis, unspecified; R53.1 Weakness; R53.81 Other malaise; Z79.82 Long term (current) use of aspirin; Z79.891 Long term (current) use of opiate analgesic; Z79.890 Hormone replacement therapy; Z90.49 Acquired absence of other specified parts of digestive tract; Z90.710 Acquired absence of both cervix and uterus; Z79.52 Long term (current) use of systemic steroids; Z79.899 Other long term (current) drug therapy
CPT/HCPCS: 36415; 74177; 80048; 80076; 81003; 82947; 83605; 83690; 83735; 84145; 85025; 87040; 96361; 96365; 96375; 99284; 99285; J0696; J1170; J1650; J2405; J3480; J7030; J7512; J7799; Q9967; U0002

== ENCOUNTER 2020-08-11 12:30 | Emergency (ER) | payer OTHER ==
[2020-08-11 13:01] LABS: Absolute Lymphocytes (CBC) 1.7 K/uL (0.7-4.9); Basophils % 0.5 % (0-1.3); Hematocrit 45.1 % (36.0-45.0); Lymphocytes % 28.5 % (15.3-44.8); MPV 9.8 fL (7.6-11.3); RBC Red Blood Cell Count 4.83 M/uL (3.86-4.86)
[2020-08-11 13:07] LABS: Protime INR 1.07
[2020-08-11 13:28] LABS: ALT/SGPT 19 U/L (12-78); AST/SGOT 22 U/L (15-37); Albumin 2.8 g/dL (3.4-5.0); Alkaline Phosphatase 61 U/L (45-117); BUN Blood Urea Nitrogen 22 mg/dL (7-18); Bicarbonate 31 mmol/L (21-32); Bilirubin Direct 0.1 mg/dL (0-0.2); Bilirubin Total 0.2 mg/dL (0.2-1.0); Glucose Level 114 mg/dL (74-106); Magnesium 2.2 mg/dL (1.8-2.4); NT PRO-BNP 433 pg/mL (<450); Potassium 3.1 mmol/L (3.5-5.1); Sodium Level 140 mmol/L (136-145); Troponin (Emerg Dept Use Only) < 0.02 ng/mL (0.0-0.045)
--- NOTE | 2020-08-11 15:21 | RAD REPORT ---
EXAM DESCRIPTION: Josiah Single View08/11/2020 2:23 pm CLINICAL HISTORY: Weakness COMPARISON: 2016 FINDINGS: The lungs appear clear of acute infiltrate. The heart is mildly enlarged IMPRESSION: No acute abnormalities displayed
--- NOTE | 2020-08-11 16:05 | ER ---
Nurse's Notes [facility] Name: Jigna Horne Age: 80 yrs Sex: Female : 1940 Arrival Date: 08/11/2020 Time: 12:31 Bed 8 Private MD: Diagnosis: Weakness Presentation: 08/11 12:33 Chief complaint: EMS states: were called out for possible high BP, pt not alert and iw shallow breathing, upon arrival pt was sitting up in chair , appeared to be drowsy but responded to verbal stimuli, pt was able to ambulate with assistance to stretcher, pt has been weak and not eating much, had her 2nd dose of COVID vaccine 2 days ago. 12:33 Method Of Arrival: EMS: [facility] iw 12:33 Acuity: SADIE 3 iw 12:38 Coronavirus screen: At this time, the client does not indicate any symptoms associated iw with coronavirus-19. Ebola Screen: Patient negative for fever greater than or equal to 101.5 degrees Fahrenheit, and additional compatible Ebola Virus Disease symptoms Patient denies exposure to infectious person. Patient denies travel to an Ebola-affected area in the 21 days before illness onset. No symptoms or risks identified at this time. Initial Sepsis Screen: Does the patient meet any 2 criteria? No. Patient's initial sepsis screen is negative. Does the patient have a suspected source of infection? No. Patient's initial sepsis screen is negative. Risk Assessment: Do you want to hurt yourself or someone else? Patient reports no desire to harm self or others. Onset of symptoms was August 11, 2020. Care prior to arrival: Glucose check: 178. Historical: - Allergies: 12:38 No Known Allergies; iw - PMHx: 12:38 High Cholesterol; Hypertension; iw - Immunization history:: Adult Immunizations. - Social history:: Smoking status: Patient denies any tobacco usage or history of. Screenin:35 Abuse screen: Denies threats or abuse. Denies injuries from another. Nutritional ca1 screening: No deficits noted. Tuberculosis screening: No symptoms or risk factors identified. Fall Risk Fall in past 12 months (25 points). IV access (20 points). Total Hernandes Fall Scale indicates Low Risk Score (25-44 pts). Fall prevention measures have been instituted. Side Rails Up X 2 As available Patient and Family Educated on Fall Prevention Program and strategies. Assessment: 12:35 General: Appears in no apparent distress. comfortable, Behavior is calm, cooperative, ca1 appropriate for age, Reports fatigue for 2-3 days. Pain: Complains of pain in forehead Pain does not radiate. Pain currently is 2 out of 10 on a pain scale. Pain began 2-3 days ago. Neuro: Level of Consciousness is awake, alert, obeys commands, Oriented to person, place, time, situation, Appropriate for age Reports. Cardiovascular: Heart tones S1 S2 present Capillary refill < 3 seconds Patient's skin is warm and dry. Rhythm is sinus rhythm. Respiratory: Airway is patent Trachea midline Respiratory effort is even, unlabored, Respiratory pattern is regular, symmetrical, Breath sounds are clear bilaterally. GI: Abdomen is round non-distended, Bowel sounds present X 4 quads. Abd is soft and non tender X 4 quads. : No signs and/or symptoms were reported regarding the genitourinary system. EENT: No signs and/or symptoms were reported regarding the EENT system. Derm: Skin is intact, is healthy with good turgor, Skin is pink, warm \T\ dry. Musculoskeletal: Circulation, motion, and sensation intact. Capillary refill < 3 seconds. 13:18 Reassessment: Patient appears in no apparent distress at this time. Patient and/or ca1 family updated on plan of care and expected duration. Pain level reassessed. Patient is alert, oriented x 3, equal unlabored respirations, skin warm/dry/pink. 14:15 Reassessment: Patient appears in no apparent distress at this time. Patient and/or ca1 family updated on plan of care and expected duration. Pain level reassessed. Patient is alert, oriented x 3, equal unlabored respirations, skin warm/dry/pink. 15:01 Reassessment: Patient appears in no apparent distress at this time. Patient and/or ca1 family updated on plan of care and expected duration. Pain level reassessed. Patient is alert, oriented x 3, equal unlabored respirations, skin warm/dry/pink. 16:00 Reassessment: Patient appears in no apparent distress at this time. Patient and/or ca1 family updated on plan of care and expected duration. Pain level reassessed. Patient is alert, oriented x 3, equal unlabored respirations, skin warm/dry/pink. 16:13 Reassessment: Awaiting ride home. ca1 17:00 Reassessment: Patient appears in no apparent distress at this time. Patient is alert, ca1 oriented x 3, equal unlabored respirations, skin warm/dry/pink. Vital Signs: 12:30 BP 129 / 65; Pulse 62; Resp 16 S; Temp 97.5(TE); Pulse Ox 97% on R/A; Weight 83.91 kg ca1 (R); Height 5 ft. 0 in. (152.40 cm) (R); Pain 2/10; 13:18 BP 123 / 72; Pulse 59; Resp 18 S; Pulse Ox 96% on R/A; ca1 14:01 BP 139 / 67; Pulse 59; Resp 20 S; Pulse Ox 96% on R/A; ca1 15:00 BP 137 / 72; Pulse 58; Resp 16 S; Pulse Ox 97% on R/A; ca1 16:00 BP 129 / 73; Pulse 61; Resp 16 S; Pulse Ox 95% on R/A; ca1 17:00 BP 143 / 75; Pulse 62; Resp 18 S; Pulse Ox 95% on R/A; ca1 12:30 Body Mass Index 36.13 (83.91 kg, 152.40 cm) ca1 ED Course: 12:31 Patient arrived in ED. bw 12:31 Eliud Stanley MD is Attending Physician. kdr 12:32 Rhonda Sharp, QUIQUE is Primary Nurse. ca1 12:35 Patient has correct armband on for positive identification. Placed in gown. Bed in low ca1 position. Call light in reach. Side rails up X2. [employer] on. Pulse ox on. NIBP on. Warm blanket given. 12:36 Triage completed. iw 12:39 Arm band placed on. iw 12:52 Initial lab(s) drawn, by me, sent to lab. Inserted saline lock: 20 gauge in right ca1 antecubital area, using aseptic technique. Blood collected. 14:22 XRAY Chest (1 view) In Process Unspecified. EDMS 17:01 No provider procedures requiring assistance completed. IV discontinued, intact, ca1 bleeding controlled, No redness/swelling at site. Pressure dressing applied. Administered Medications: No medications were administered Outcome: 16:04 Discharge ordered by . kdr 17:01 Discharged to home via wheelchair, with family. ca1 17:01 Condition: stable 17:01 Discharge instructions given to patient, family, Instructed on discharge instructions, follow up and referral plans. Demonstrated understanding of instructions, follow-up care. 17:01 Patient left the ED. ca1 Signatures: Dispatcher [employer] EDEliud Canchola MD MD kdr Pamela Fox RN RN iw Rhonda Sharp RN RN ca1 Lim, QUIQUE Levi RN Corrections: (The following items were deleted from the chart) 15:03 13:18 BP 104 / 49; Pulse 58bpm; Resp 16bpm; Spontaneous; Pulse Ox 96% RA; ca1 ca1 15:03 14:15 BP 137 / 72; Pulse 58bpm; Resp 16bpm; Spontaneous; Pulse Ox 97% RA; ca1 ca1
--- NOTE | 2020-08-11 16:05 | EDPHYS ---
Physician Documentation [facility] Name: Jigna Horne Age: 80 yrs Sex: Female : 1940 Arrival Date: 08/11/2020 Time: 12:31 Bed 8 Private MD: ED Physician Eliud Stanley HPI: 08/11 16:01 This 80 yrs old Female presents to ER via EMS with complaints of General kdr Weakness. 16:01 The patient c/o generalized weakness and lack of energy. She had the COVID vaccine two kdr days ago.. Onset: The symptoms/episode began/occurred gradually, 2 day(s) ago. Severity of symptoms: At their worst the symptoms were mild in the emergency department the symptoms are unchanged. The patient has not experienced similar symptoms in the past. The patient has not recently seen a physician. Historical: - Allergies: 12:38 No Known Allergies; iw - PMHx: 12:38 High Cholesterol; Hypertension; iw - Immunization history:: Adult Immunizations. - Social history:: Smoking status: Patient denies any tobacco usage or history of. ROS: 16:01 Constitutional: Negative for fever, chills, and weight loss - onlly general weakness kdr Eyes: Negative for injury, pain, redness, and discharge, ENT: Negative for injury, pain, and discharge, Neck: Negative for injury, pain, and swelling, Cardiovascular: Negative for chest pain, palpitations, and edema, Respiratory: Negative for shortness of breath, cough, wheezing, and pleuritic chest pain, Abdomen/GI: Negative for abdominal pain, nausea, vomiting, diarrhea, and constipation, Back: Negative for injury and pain, MS/Extremity: Negative for injury and deformity, Skin: Negative for injury, rash, and discoloration, Neuro: Negative for headache, weakness, numbness, tingling, and seizure activity. Psych: Negative for depression, anxiety, suicide ideation, homicidal ideation, and hallucinations, Allergy/Immunology: Negative for hives, rash, and allergies, Endocrine: Negative for neck swelling, polydipsia, polyuria, polyphagia, and marked weight changes, Hematologic/Lymphatic: Negative for swollen nodes, abnormal bleeding, and unusual bruising. Exam: 16:01 Constitutional: This is a well developed, well nourished patient who is awake, alert, kdr and in no acute distress. Head/Face: Normocephalic, atraumatic. Eyes: Pupils equal round and reactive to light, extra-ocular motions intact. Lids and lashes normal. Conjunctiva and sclera are non-icteric and not injected. Cornea within normal limits. Periorbital areas with no swelling, redness, or edema. Neck: Trachea midline, no thyromegaly or masses palpated, and no cervical lymphadenopathy. Supple, full range of motion without nuchal rigidity, or vertebral point tenderness. No Meningismus. Chest/axilla: Normal chest wall appearance and motion. Nontender with no deformity. No lesions are appreciated. Cardiovascular: Regular rate and rhythm with a normal S1 and S2. No gallops, murmurs, or rubs. Normal PMI, no JVD. No pulse deficits. Respiratory: Lungs have equal breath sounds bilaterally, clear to auscultation and percussion. No rales, rhonchi or wheezes noted. No increased work of breathing, no retractions or nasal flaring. Abdomen/GI: Soft, non-tender, with normal bowel sounds. No distension or tympany. No guarding or rebound. No evidence of tenderness throughout. Back: No spinal tenderness. No costovertebral tenderness. Full range of motion. Skin: Warm, dry with normal turgor. Normal color with no rashes, no lesions, and no evidence of cellulitis. MS/ Extremity: Pulses equal, no cyanosis. Neurovascular intact. Full, normal range of motion. Neuro: Awake and alert, GCS 15, oriented to person, place, time, and situation. Cranial nerves II-XII grossly intact. Motor strength 5/5 in all extremities. Sensory grossly intact. Cerebellar exam normal. Normal gait. Psych: Awake, alert, with orientation to person, place and time. Behavior, mood, and affect are within normal limits. 16:01 Cardiovascular: Edema: 2+ edema to level of left ankle, left foot, left toes, right ankle, right foot and right toes. 18:45 ECG was reviewed by the Attending Physician. kdr Vital Signs: 12:30 BP 129 / 65; Pulse 62; Resp 16 S; Temp 97.5(TE); Pulse Ox 97% on R/A; Weight 83.91 kg ca1 (R); Height 5 ft. 0 in. (152.40 cm) (R); Pain 2/10; 13:18 BP 123 / 72; Pulse 59; Resp 18 S; Pulse Ox 96% on R/A; ca1 14:01 BP 139 / 67; Pulse 59; Resp 20 S; Pulse Ox 96% on R/A; ca1 15:00 BP 137 / 72; Pulse 58; Resp 16 S; Pulse Ox 97% on R/A; ca1 16:00 BP 129 / 73; Pulse 61; Resp 16 S; Pulse Ox 95% on R/A; ca1 17:00 BP 143 / 75; Pulse 62; Resp 18 S; Pulse Ox 95% on R/A; ca1 12:30 Body Mass Index 36.13 (83.91 kg, 152.40 cm) ca1 MDM: 16:01 Data reviewed: vital signs, nurses notes, lab test result(s), EKG, radiologic studies. kdr Counseling: I had a detailed discussion with the patient and/or guardian regarding: the historical points, exam findings, and any diagnostic results supporting the discharge/admit diagnosis, lab results, radiology results, the need for outpatient follow up. 16:04 Patient medically screened. kdr 08/11 12:37 Order name: Basic Metabolic Panel kdr 08/11 12:37 Order name: CBC with Diff kdr 08/11 12:37 Order name: LFT's; Complete Time: 13:45 kdr 08/11 12:37 Order name: Magnesium; Complete Time: 13:45 kdr 08/11 12:37 Order name: NT PRO-BNP; Complete Time: 13:45 kdr 08/11 12:37 Order name: PT-INR; Complete Time: 13:45 kdr 08/11 12:37 Order name: Troponin (emerg Dept Use Only); Complete Time: 13:45 kdr 08/11 12:37 Order name: XRAY Chest (1 view); Complete Time: 15:47 kdr 08/11 12:37 Order name: EKG; Complete Time: 12:38 kdr 08/11 12:37 Order name: Cardiac monitoring; Complete Time: 12:52 kdr 08/11 12:37 Order name: EKG - Nurse/Tech; Complete Time: 13:15 kdr 08/11 12:37 Order name: IV Saline Lock; Complete Time: 12:52 kdr 08/11 12:37 Order name: Basic Metabolic Panel; Complete Time: 13:45 EDMS 08/11 12:37 Order name: CBC with Automated Diff; Complete Time: 13:45 [facility] 08/11 12:37 Order name: Labs collected and sent; Complete Time: 12:52 [facility] 08/11 12:37 Order name: O2 Per Protocol; Complete Time: 12:52 [facility] 08/11 12:37 Order name: O2 Sat Monitoring; Complete Time: 12:52 [facility] EC:45 Rate is 59 beats/min. Rhythm is regular, Sinus bradycardia with No ectopy. QRS [place] is kdr Normal. [place] interval is normal. QRS interval is normal. QT interval is normal. Clinical impression: NSR w/ Non-specific ST/T Changes and Sinus bradycardia. Administered Medications: No medications were administered Disposition: 08/11/20 16:04 Discharged to Home. Impression: Weakness. - Condition is Stable. - Discharge Instructions: Fatigue, Weakness, [id number]. - Medication Reconciliation Form, Thank You Letter form. - Follow up: Private Physician; When: 2 - 3 days; Reason: If symptoms return, Further diagnostic work-up, Recheck today's complaints, Continuance of care, Re-evaluation by your physician. - Problem is an ongoing problem. - Symptoms are unchanged. Signatures: Dispatcher [employer] [facility] Eliud Stanley MD MD kdr Pamela Fox RN RN iw Rhonda Sharp RN RN ca1 Corrections: (The following items were deleted from the chart) 17:01 16:04 08/11/2020 16:04 Discharged to Home. Impression: Weakness. Condition is Stable. ca1 Forms are Medication Reconciliation Form, Thank You Letter, Antibiotic Education, Prescription Opioid Use. Follow up: Private Physician; When: 2 - 3 days; Reason: If symptoms return, Further diagnostic work-up, Recheck today's complaints, Continuance of care, Re-evaluation by your physician. Problem is an ongoing problem. Symptoms are unchanged. kdr
[2020-08-11 22:17] VITALS: TEMP 97.5
[2020-08-11 22:22] VITALS: O2SAT 95
[2020-08-11 22:23] VITALS: BP 143/75
== END 2020-08-11 17:01 | disposition home or self-care (01) ==
LOC: ER 12:30
DX: R53.1 Weakness (principal); I10 Essential (primary) hypertension
CPT/HCPCS: 36415; 71045; 80048; 80076; 83735; 83880; 84484; 85025; 85610; 93005; 99284

== ENCOUNTER 2020-09-20 16:35 | Inpatient (IN) | payer OTHER ==
[2020-09-20 20:27] LABS: Urine Blood Negative (Negative); Urine Glucose Negative (Negative); Urine Protein Negative (Negative)
--- NOTE | 2020-09-20 20:28 | RAD REPORT ---
EXAM DESCRIPTION: Josiah Single View09/20/2020 8:14 pm CLINICAL HISTORY: Fever COMPARISON: August 2020 FINDINGS: The lungs appear clear of acute infiltrate. The heart is mildly enlarged IMPRESSION: No acute abnormalities displayed
[2020-09-20] MEDS ORDERED: ACETAMINOPHEN 325 MG TABLET ONE (20:32)
[2020-09-20] MEDS ORDERED: NA CHLORIDE 0.9% 500 ML ONE (20:32)
[2020-09-20 20:37] LABS: Absolute Lymphocytes (CBC) 1.4 K/uL (0.7-4.9); Basophils % 0.4 % (0-1.3); MPV 9.8 fL (7.6-11.3); RBC Red Blood Cell Count 4.43 M/uL (3.86-4.86)
[2020-09-20 20:41] LABS: Potassium 3.5 mmol/L (3.5-5.1)
--- NOTE | 2020-09-20 20:45 | RAD REPORT ---
EXAM DESCRIPTION: CT - Head Brain Wo Cont - 09/20/2020 8:36 pm CLINICAL HISTORY: Headache COMPARISON: None TECHNIQUE: Computed axial tomography of the head was obtained. IV contrast was not requested. All CT scans are performed using dose optimization technique as appropriate and may include automated exposure control or mA/KV adjustment according to patient size. FINDINGS: An intracranial bleed is not seen . The ventricles are normal in caliber. No extra-axial fluid collection is noted. Mild to moderate low-density areas within periventricular, deep and subcortical white matter likely r epresent ischemic changes secondary to small vessel disease. Fluid within the sinuses/ mastoids is not seen. IMPRESSION: No acute intracranial abnormality is seen. If patient's symptoms persist MRI of the bra in would be recommended.
[2020-09-20 21:17] LABS: Blood Morphology Comment NOT SEEN (NOT SEEN); Platelet Estimate ADEQ; White Blood Cell Scan OK (OK)
[2020-09-20 21:21] LABS: Urine Bacteria <20 /HPF (<20); Urine RBC <5 /HPF (NONE SEEN); Urine Urothelial Cells <5 /HPF (NONE SEEN)
[2020-09-20 22:03] LABS: SARS-COV-2 RT PCR NEGATIVE (NEGATIVE)
--- NOTE | 2020-09-20 22:11 | ER ---
Nurse's Notes [facility] Name: Jigna Horne Age: 80 yrs Sex: Female : 1940 Arrival Date: 09/20/2020 Time: 16:37 Bed 14 Private MD: Diagnosis: Fever of other and unknown origin Presentation: 09/20 16:47 Chief complaint: Patient states: GAMEZ, weak, fatigue since 8 am today. Sent by Dr. Alanis [facility] for eval. States she had fever earlier, but cant remember what it was. Denies cough, no N/V/D. + decreased appetite. Coronavirus screen: Client denies travel out of the [place] in the last 14 days. fatigue, fever, Client presents with at least one sign or symptom that may indicate coronavirus-19. Standard/surgical mask placed on the client. Ebola Screen: Patient denies travel to an Ebola-affected area in the 21 days before illness onset. Initial Sepsis Screen: Does the patient meet any 2 criteria? No. Patient's initial sepsis screen is negative. Does the patient have a suspected source of infection? Yes: Other: GAMEZ, weak, fatigue. Risk Assessment: Do you want to hurt yourself or someone else? Patient reports no desire to harm self or others. Onset of symptoms was September 20, 2020. 16:47 Method Of Arrival: Wheelchair [facility] 16:47 Acuity: SADIE 3 ll1 Historical: - Allergies: 16:51 No Known Drug Allergies; ll1 - Home Meds: 23:30 levothyroxine oral [Active]; Hydrochlorothiazide Oral [Active]; gabapentin Oral sf [Active]; aspirin 81 mg Oral chew 1 tab once daily [Active]; amlodipine oral [Active]; - PMHx: 16:51 High Cholesterol; Hypertension; ll1 - PSHx: 16:51 Cholecystectomy; ll1 - Immunization history:: Client reports receiving the 2nd dose of the Covid vaccine, Flu vaccine is up to date. - Social history:: Smoking status: Patient denies any tobacco usage or history of. - Family history:: not pertinent. - Hospitalizations: : No recent hospitalization is reported. Screenin:00 Abuse screen: Denies threats or abuse. Denies injuries from another. Nutritional sf screening: No deficits noted. Tuberculosis screening: No symptoms or risk factors identified. Fall Risk No fall in past 12 months (0 pts). No secondary diagnosis (0 pts). IV access (20 points). Ambulatory Aid- Crutches/Cane/Walker (15 pts). Gait- Weak (10 pts.). Mental Status- Oriented to own ability (0 pts). Total Hernandes Fall Scale indicates High Risk Score (45 or more points). Fall prevention measures have been instituted. Side Rails Up X 2 Placed Close to Nursing Station Frequent Obs/Assessments Occuring. Assessment: 20:00 General: Appears comfortable, Behavior is calm, cooperative. Pain: Complains of pain in sf head. Neuro: Level of Consciousness is awake, alert, Oriented to person, place, time, situation, Reports headache in entire. Cardiovascular: Patient's skin is warm and dry. Respiratory: Airway is patent Respiratory effort is even, labored, Respiratory pattern is symmetrical, tachypnea. GI: No deficits noted. No signs and/or symptoms were reported involving the gastrointestinal system. : No deficits noted. No signs and/or symptoms were reported regarding the genitourinary system. EENT: No deficits noted. No signs and/or symptoms were reported regarding the EENT system. Derm: No deficits noted. No signs and/or symptoms reported regarding the dermatologic system. Musculoskeletal: No deficits noted. No signs and/or symptoms reported regarding the musculoskeletal system. 21:29 Reassessment: Patient appears in no apparent distress at this time. No changes from sf previously documented assessment. Patient and/or family updated on plan of care and expected duration. Pain level reassessed. Patient is alert, oriented x 3, equal unlabored respirations, skin warm/dry/pink. 23:28 Reassessment: Patient appears in no apparent distress at this time. No changes from sf previously documented assessment. Patient and/or family updated on plan of care and expected duration. Pain level reassessed. Patient is alert, oriented x 3, equal unlabored respirations, skin warm/dry/pink. Ambulated to restroom and back, stand-by assist. Vital Signs: 16:47 BP 127 / 64; Pulse 88; Resp 17; Temp 99.4; Pulse Ox 97% on R/A; Weight 83.46 kg; Height ll1 5 ft. 0 in. (152.40 cm); Pain 5/10; 20:34 BP 156 / 66; Pulse 81; Resp 20; Pulse Ox 97% ; sf 21:26 BP 141 / 70; Pulse 77; Resp 18; Pulse Ox 95% ; sf 23:23 BP 181 / 84; Pulse 78; Resp 20; Pulse Ox 96% ; sf 16:47 Body Mass Index 35.93 (83.46 kg, 152.40 cm) ll1 ED Course: 16:37 Patient arrived in ED. ds1 16:50 Triage completed. ll1 16:51 Arm band placed on. ll1 19:22 Rubio Ham, QUIQUE is Primary Nurse. sf 19:24 Maynor Jane MD is Attending Physician. rn 20:00 Patient has correct armband on for positive identification. Bed in low position. Call sf light in reach. Side rails up X2. Pulse ox on. NIBP on. Door closed. Noise minimized. Visitors limited. Lights dimmed. Warm blanket given. Verbal reassurance given. 20:00 Initial lab(s) drawn, by me, sent to lab. First set of blood cultures drawn by me. sf Inserted saline lock: 20 gauge in right antecubital area, using aseptic technique. Blood collected. 20:00 COVID swab sent to lab. Flu and/or RSV swab sent to lab. sf 20:05 X-ray(s) taken. sf 20:09 Influenza Screen (a \\T\\ B) Sent. sf 20:09 Lactate Sent. sf 20:09 Basic Metabolic Panel Sent. sf 20:09 CBC with Diff Sent. sf 20:11 Blood Culture Adult (2) Sent. sf 20:13 XRAY Chest (1 view) In Process Unspecified. EDMS 20:15 Urine collected: clean catch specimen, clear. sf 20:31 CT Head Brain wo Cont Sent. sf 20:36 CT Head Brain wo Cont In Process Unspecified. EDMS 21:26 IV is patent, with fluids infusing freely, with good blood return. sf 22:10 Sandra Alanis MD is Hospitalizing Provider. rn 23:29 No provider procedures requiring assistance completed. Patient admitted, IV remains in sf place. 23:40 Second set of blood cultures drawn. Inserted saline lock: 22 gauge in left forearm, sf using aseptic technique. Blood collected. Administered Medications: 20:20 Drug: Tylenol 325 mg {Note: Patient refused other 325 mg stating, "it gives me sf abdominal pains".} Route: PO; 21:30 Follow up: Response: No adverse reaction sf 20:20 Drug: NS 0.9% 500 ml Route: IV; Rate: bolus; Site: right antecubital; sf 21:30 Follow up: IV Status: Completed infusion; IV Intake: 500ml sf 23:51 Drug: Zosyn 3.375 grams Route: IVPB; Infused Over: 60 mins; Site: left forearm; sf 09/21 00:04 Follow up: IV Status: Infusion continued upon admission sf Intake: 09/20 21:30 IV: 500ml; Total: 500ml. sf Outcome: 22:11 Decision to Hospitalize by Provider. rn 23:29 Condition: stable sf 23:29 Instructed on the need for admit. 09/21 00:03 Admitted to Tele accompanied by nurse, via stretcher, room 204, Report called to rudy Francois RN 00:08 Patient left the ED. sf Signatures: Dispatcher [employer] EDNM Renetta Hernandez ds1 Maynor Jane MD MD rn Lewis, Lynsay, RN RN 1 Rubio Ham RN RN sf Corrections: (The following items were deleted from the chart) 09/20 20:10 20:09 To radiology for Chest Single View+RAD.RAD.BRZ. rudy EDNM
--- NOTE | 2020-09-20 22:11 | EDPHYS ---
Physician Documentation [facility] Name: Jigna Horne Age: 80 yrs Sex: Female : 1940 Arrival Date: 09/20/2020 Time: 16:37 Bed 14 Private MD: ED Physician Maynor Jane HPI: 09/20 20:13 This 80 yrs old Female presents to ER via Wheelchair with complaints of rn headache, weakness. 20:14 Reports this morning began with generalized weakness, headache, chills, myalgias, + rn fever. No known sick contacts. No cough or sob. No abd pain/vomiting/diarrhea. . Onset: The symptoms/episode began/occurred this morning. Severity of symptoms: At their worst the symptoms were mild in the emergency department the symptoms are unchanged. It is unknown whether or not the patient has had similar symptoms in the past. The patient has not recently seen a physician. Historical: - Allergies: 16:51 No Known Drug Allergies; ll1 - Home Meds: 23:30 levothyroxine oral [Active]; Hydrochlorothiazide Oral [Active]; gabapentin Oral sf [Active]; aspirin 81 mg Oral chew 1 tab once daily [Active]; amlodipine oral [Active]; - PMHx: 16:51 High Cholesterol; Hypertension; ll1 - PSHx: 16:51 Cholecystectomy; ll1 - Immunization history:: Client reports receiving the 2nd dose of the Covid vaccine, Flu vaccine is up to date. - Social history:: Smoking status: Patient denies any tobacco usage or history of. - Family history:: not pertinent. - Hospitalizations: : No recent hospitalization is reported. 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 Exam: 20:16 Constitutional: This is a well developed, well nourished patient who is awake, alert, rn and in no acute distress. + rigors. Head/Face: Normocephalic, atraumatic. Eyes: Pupils equal round and reactive to light, extra-ocular motions intact. Lids and lashes normal. Conjunctiva and sclera are non-icteric and not injected. Cornea within normal limits. Periorbital areas with no swelling, redness, or edema. ENT: dry MM, no stridor Neck: Trachea midline, no thyromegaly or masses palpated, and no cervical lymphadenopathy. Supple, full range of motion without nuchal rigidity, or vertebral point tenderness. No Meningismus. Cardiovascular: Regular rate and rhythm. No pulse deficits. Respiratory: + mild tachypnea, no retractions Abdomen/GI: soft, non-tender Skin: Warm, dry MS/ Extremity: Pulses equal, no cyanosis. Neurovascular intact. Full, normal range of motion. Equal circumference. Neuro: Awake and alert, GCS 15, oriented to person, place, time, and situation. Cranial nerves II-XII grossly intact. Motor strength 4/5 in all extremities. Sensory grossly intact. Vital Signs: 16:47 BP 127 / 64; Pulse 88; Resp 17; Temp 99.4; Pulse Ox 97% on R/A; Weight 83.46 kg; Height ll1 5 ft. 0 in. (152.40 cm); Pain 5/10; 20:34 BP 156 / 66; Pulse 81; Resp 20; Pulse Ox 97% ; sf 21:26 BP 141 / 70; Pulse 77; Resp 18; Pulse Ox 95% ; sf 23:23 BP 181 / 84; Pulse 78; Resp 20; Pulse Ox 96% ; sf 16:47 Body Mass Index 35.93 (83.46 kg, 152.40 cm) ll1 MDM: 19:24 Patient medically screened. rn 22:09 Differential Diagnosis sepsis, flu, covid, pneumonia, UTI, viral syndrome. Data rn reviewed: vital signs, nurses notes, lab test result(s), radiologic studies, plain films, and as a result, I will admit patient. Counseling: I had a detailed discussion with the patient and/or guardian regarding: the historical points, exam findings, and any diagnostic results supporting the discharge/admit diagnosis, lab results, radiology results, the need for further work-up and treatment in the hospital. Response to treatment: the patient's symptoms have mildly improved after treatment, and as a result, I will admit patient. Admission orders: after a detailed discussion of the patient's condition and case, the admit orders are written by me. ED course: No source of fever and symptoms, consulted with Dr. Alanis, will admit, requests zosyn Q6 hours. CXR and Urine no acute findings. COVID and flu neg. Given constellation of symptoms, may just be viral syndrome. . 09/20 19:35 Order name: CBC with Diff 09/20 19:35 Order name: Basic Metabolic Panel 09/20 19:35 Order name: Lactate 09/20 19:35 Order name: Influenza Screen (a \\T\\ B) 09/20 19:35 Order name: Urine Culture 09/20 19:35 Order name: Urine Microscopic Only; Complete Time: 21:23 09/20 19:35 Order name: Blood Culture Adult (2) 09/20 19:35 Order name: CBC with Automated Diff; Complete Time: 21:23 EDHI 09/20 19:35 Order name: Basic Metabolic Panel; Complete Time: 20:43 EDHI 09/20 19:35 Order name: Lactate; Complete Time: 20:50 EDMS 09/20 20:27 Order name: Urine Dipstick-Ancillary; Complete Time: 20:43 EDHI 09/20 21:17 Order name: CBC Smear Scan; Complete Time: 21:23 EDHI 09/20 19:35 Order name: IV Start; Complete Time: 20:09 09/20 19:35 Order name: Urine Dipstick-Ancillary (obtain specimen); Complete Time: 20:31 rn 09/20 19:35 Order name: XRAY Chest (1 view); Complete Time: 20:43 09/20 20:13 Order name: CT Head Brain wo Cont; Complete Time: 20:50 09/20 22:03 Order name: COVID-19/FLU A+B; Complete Time: 22:05 EDMS Administered Medications: 20:20 Drug: Tylenol 325 mg {Note: Patient refused other 325 mg stating, "it gives me sf abdominal pains".} Route: PO; 21:30 Follow up: Response: No adverse reaction sf 20:20 Drug: NS 0.9% 500 ml Route: IV; Rate: bolus; Site: right antecubital; sf 21:30 Follow up: IV Status: Completed infusion; IV Intake: 500ml sf 23:51 Drug: Zosyn 3.375 grams Route: IVPB; Infused Over: 60 mins; Site: left forearm; sf 09/21 00:04 Follow up: IV Status: Infusion continued upon admission sf Disposition: 09/20/20 22:11 Hospitalization ordered by Sandra Alanis for Observation. Preliminary diagnosis is Fever of other and unknown origin. - Bed requested for Telemetry/MedSurg (observation). - Status is Observation. sf - Condition is Stable. - Problem is new. - Symptoms have improved. Signatures: Dispatcher [employer] EDMS Hoda Nelson RN RN dw Nieto, Roman, MD MD rn Lewis, Lynsay, RN RN [facility] Rubio Ham RN RN sf Corrections: (The following items were deleted from the chart) 09/20 20:10 19:36 Chest Single View+RAD.RAD.BRZ ordered. EDHI EDMS 20:23 20:14 Chest Single View+RAD.RAD.BRZ ordered. EDHI EDMS 20:59 19:35 Influenza Screen (A ordered. EDHI EDMS 21:00 19:36 CORONAVIRUS+MR.LAB.BRZ ordered. EDHI EDMS 22:58 22:11 Hospitalization Ordered by A Zeke RAIN for Observation. Preliminary diagnosis is dw Fever of other and unknown origin. Bed requested for Telemetry/MedSurg (observation). Status is Observation. Condition is Stable. Problem is new. Symptoms have improved. rn 22:59 22:58 09/20/2020 22:11 Hospitalization Ordered by A Zeke RAIN for Observation. dw Preliminary diagnosis is Fever of other and unknown origin. Bed requested for Telemetry/MedSurg (observation). Status is Observation. Condition is Stable. Problem is new. Symptoms have improved. 09/21 00:08 09/20 22:59 09/20/2020 22:11 Hospitalization Ordered by A Zeke RAIN for Observation. sf Preliminary diagnosis is Fever of other and unknown origin. Bed requested for Telemetry/MedSurg (observation). Status is Observation. Condition is Stable. Problem is new. Symptoms have improved. dw
[2020-09-21] MEDS ORDERED: PIPER/TAZO/NS 3.375gm 3.375 GM/100 ML BAG ONE (00:04)
[2020-09-21] MEDS ORDERED: NA CHLORIDE 0.9% 1,000 ML IV SCH (00:09)
[2020-09-21] MEDS ORDERED: ONDANSETRON 4 MG/2 ML VIAL IV PRN (00:09)
[2020-09-21] MEDS ORDERED: ACETAMINOPHEN 500 MG TAB PO PRN (00:09)
[2020-09-21 00:44] VITALS: BMI 36.8
[2020-09-21 06:10] LABS: Absolute Lymphocytes (CBC) 1.5 K/uL (0.7-4.9); Basophils % 0.3 % (0-1.3); Hematocrit 37.5 % (36.0-45.0); Lymphocytes % 12.7 % (15.3-44.8); MPV 9.3 fL (7.6-11.3); RBC Red Blood Cell Count 4.04 M/uL (3.86-4.86)
[2020-09-21 06:30] LABS: Potassium 3.3 mmol/L (3.5-5.1)
[2020-09-21] MEDS: PIPER/TAZO/NS 3.375gm 3.375 GM/100 ML BAG IVPB SCH ×2 (09:49→16:04)
--- NOTE | 2020-09-21 22:11 | HP ---
Date of Admission: 09/21/2020 Chief Complaint: Fever, chills, body ache, and headache. History Of Present Illness: This is an 80-year-old pleasant female patient, who was doing fine in her normal usual state of health until all of a sudden yesterday she started to have headache right across her forehead area, associated with fever, chills, and generalized body ache. She denies any cough, congestion. No expectoration. No sore throat. No abdominal pain, nausea, vomiting, constipation, or diarrhea. No urinary complaints. After she came to emergency room, she was evaluated and admitted to the hospital. When I saw her this morning, she was feeling somewhat better compared to yesterday. Allergies: NO KNOWN ALLERGIES. Medications: List reviewed. Review of Systems: Constitutional: As mentioned above. 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 All other systems reviewed and negative. Past Medical History: Significant for peripheral neuropathy, hypothyroidism, hypertension, vitamin D deficiency, diverticulosis, hyperlipidemia, leg edema, varicose veins of lower extremity, osteoarthritis at multiple sites, and rheumatoid arthritis. Past Surgical History: Cataract surgery, cholecystectomy, knee surgery, hysterectomy. Family History: Significant for father and had hypertension and asthma, mother had hypertension, brother with liver cancer, and sister with pancreatic cancer. Social History: Negative for smoking or alcohol use. Physical Examination: Vital Signs: Temperature 98.3, pulse 79, respiratory rate 16, blood pressure 187/90, oxygen saturation 93%. Height 5 feet, weight 188 pounds. General: Awake, alert, oriented, not in distress. HEENT: Head atraumatic, normocephalic. Conjunctivae nonerythematous. Sclerae white. Mouth, no thrush or edema noted. Ears/Nose, no mass, lesion, discharge noted. Neck: Supple. No JVD, lymph nodes, bruit, thyromegaly noted. Lungs: Presence of rales in left basal region. Heart: Normal heart sounds. No murmur or gallop. Abdomen: Soft. Bowel sounds normal. No guarding, rigidity, tenderness, mass, hepatosplenomegaly, distention, or bruit noted. Extremities: No leg edema. No calf tenderness. Skin: No rash, ulcer, cellulitis. Lymphatics: No lymph node enlargement in neck, supraclavicular, infraclavicular region. Neuro: No focal neurological deficit. Chest: Unremarkable. External Genitalia: Deferred. Rectal: Deferred. Laboratory Data: Yesterday, white count was 16.9, hemoglobin 13.5, platelets 167. This morning, white count 11.5, hemoglobin 12.5, platelets 153. Yesterday, sodium 140, potassium 3.5, chloride 103, bicarb 30, BUN 14, creatinine 0.89, glucose 104. Urinalysis negative. Influenza A and B test negative. COVID-19 test negative. Chest x-ray, no acute cardiopulmonary changes. CAT scan of the head, no acute intracranial changes. Impression: 1. Fever. 2. Rule out pneumonia. 3. Hypertension. 4. Hypothyroidism. 5. Hyperlipidemia. 6. Diverticulosis. 7. Vitamin D deficiency. 8. Peripheral neuropathy. 9. Osteoarthritis, multiple sites. Plan: Admit the patient to the hospital for further evaluation and management of this problem. The patient is appropriate for inpatient and is expected to spend 2 midnights in the hospital. Home medications will be continued per order. We will give DVT prophylaxis per order. IV antibiotics, Zosyn, was started, which we will continue that. So far, she has responded well to this. We will go ahead and plan to do CAT scan of the chest without contrast and I will see her tomorrow for followup. Depending on her condition, we will decide if she can possibly be discharged to go home tomorrow or not. Details and plan of treatment discussed with her. We will go ahead and follow up on her culture results. GARTH/OJAN Voice ID: [id number] KYLE
[2020-09-22] MEDS: PIPER/TAZO/NS 3.375gm 3.375 GM/100 ML BAG IVPB SCH ×3 (01:07→15:52)
[2020-09-22 08:12] LABS: Basophils % 0.6 % (0-1.3); Hematocrit 39.9 % (36.0-45.0); Lymphocytes % 28.1 % (15.3-44.8); MPV 9.8 fL (7.6-11.3); RBC Red Blood Cell Count 4.26 M/uL (3.86-4.86)
[2020-09-22] MEDS: ASPIRIN 81 MG CHEWABLE TABLET PO SCH (08:30)
[2020-09-22] MEDS: GABAPENTIN 100 MG CAP PO SCH (08:30)
[2020-09-22] MEDS: AMLODIPINE 5 MG TAB PO SCH (08:30)
[2020-09-22] MEDS: predniSONE 10 MG TAB PO SCH (08:30)
[2020-09-22] MEDS: ENOXAPARIN 40 MG/0.4 ML SQ SCH (08:31)
[2020-09-22] MEDS: HOME MED 1 EA UNK (Leflunomide [Arava] 20 MG Tablet) PO SCH (08:31)
--- NOTE | 2020-09-22 09:25 | RAD REPORT ---
EXAM DESCRIPTION: CT - Thorax Wo Con CLINICAL HISTORY: Chest pain Possible pneumonia COMPARISON: CT HEAD SPINE CAP W CONTRAST dated 03/05/2012; Chest Single View dated 09/20/2020; Chest S [place] View dated 08/11/2020; Head Brain Wo Cont dated 09/20/2020 FINDINGS: Scattered areas of linear subsegmental atelectasis are present bilaterally. No focal infil trate is seen. No pleural thickening or pleural effusion. No pneumothorax. No axillary, mediastinal or hilar adenopathy. No concerning bony finding. Cholecystectomy clips. All CT scans are performed using dose optimization technique as appropriate and may include automated exposure control or mA/KV adjustment according to patient size. IMPRESSION: No acute infiltrate is seen to indicate pneumonia.
[2020-09-22 10:13] LABS: Albumin 2.5 g/dL (3.4-5.0); Bilirubin Total 0.4 mg/dL (0.2-1.0); Magnesium 2.4 mg/dL (1.8-2.4); Potassium 3.4 mmol/L (3.5-5.1); Protein, Total 6.3 g/dL (6.4-8.2)
[2020-09-22] MEDS ORDERED: POTASSIUM CL SA 10 MEQ TAB PO ONE ×2 (18:00→18:17)
[2020-09-23] MEDS: PIPER/TAZO/NS 3.375gm 3.375 GM/100 ML BAG IVPB SCH ×2 (00:22→08:53)
[2020-09-23] MEDS: predniSONE 10 MG TAB PO SCH (08:53)
[2020-09-23] MEDS: GABAPENTIN 100 MG CAP PO SCH (08:53)
[2020-09-23] MEDS: AMLODIPINE 5 MG TAB PO SCH (08:53)
[2020-09-23] MEDS: ASPIRIN 81 MG CHEWABLE TABLET PO SCH (08:53)
[2020-09-23] MEDS: ENOXAPARIN 40 MG/0.4 ML SQ SCH (08:54)
[2020-09-23] MEDS: HOME MED 1 EA UNK (Leflunomide [Arava] 20 MG Tablet) PO SCH (08:54)
[2020-09-23] MEDS ORDERED: METOPROLOL XL 25 MG TAB PO ONE (08:59)
[2020-09-23] MEDS ORDERED: METOPROLOL TAR 25 MG TAB PO ONE (09:00)
[2020-09-23 09:53] VITALS: O2SAT 93
[2020-09-23] MEDS ORDERED: LOSARTAN POTASSIUM 50 MG TABLET PO ONE (11:00)
--- NOTE | 2020-09-23 11:40 | PN ---
Date of Progress Note: 09/22/2020 Subjective: The patient was seen for followup in the morning. No new complaints or problems reporte d by her. She was on nasal cannula oxygen 2 L/minute, maintaining adequate oxygenation. No shortnes s of breath. Vital Signs were reviewed. No abdominal pain, nausea, vomiting. Has had some diarrhea since she is in the hospital with IV antibiotics. Objective: Vital Signs: Reviewed. HEENT: Unremarkable. Lungs: Clear to auscultation except some minimal left basal rales noted. Not using accessory muscle s of respiration. Heart: Sounds normal. Abdomen: Soft. Bowel sounds normal. No guarding, rigidity, tenderness, or distention. Extremities: No leg edema. Laboratory Data: No new blood work today. Impression: 1.Probable pneumonia. 2.Hypertension. 3.Chronic steroid therapy. Plan: We will continue current home medications, antihypertensive medication, and prednisone which s he takes. Continue current IV antibiotic, which is Zosyn. We will get a CAT scan of the chest done without contrast and then I will see her tomorrow for followup. Continue DVT prophylaxis with Loveno x per order. GARTH/MODL Voice ID: [id number] Report ID: [id number]
[2020-09-23 13:01] VITALS: TEMP 97.5
[2020-09-23 14:48] VITALS: BP 148/91
--- NOTE | 2020-09-24 19:38 | DS ---
Date of Discharge: 09/23/2020 Disposition: Discharged to go home. Physical Examination: HEENT: Unremarkable. Lungs: Clear to auscultation. Heart: Sounds normal. Abdomen: Soft. Bowel sounds normal. No guarding, rigidity, tenderness, or distention. Extremities: No leg edema. Discharge Medications And Instructions: 1. Continue all prior home medications. 2. Take following medications as a new medication prescription was sent for Augmentin and losartan to the pharmacy from my office. New medication includes [id number]-[id number]-[id number] medication; Imodium 2 mg take 1 tablet by mouth 3 times a day as needed for diarrhea, losartan 25 mg 1 tablet by mouth daily at bedtime and Augmentin 875 mg 2 times a day with food for 5 days. 3. Follow up at my office on 09/28/2020 at 9 a.m. Laboratory Data: Labs done during this hospitalization; initial white count was 16.9 with hemoglobin 13.5, platelets 167 on 09/20/2020. Last white count on 09/22/2020 was 7, hemoglobin was 13, platelets 153. Last chemistry on 09/22/2020; sodium 141, potassium 3.4, chloride 110, bicarb 28, BUN 9, creatinine 0.72, glucose 86. Liver function tests unremarkable and after potassium was corrected, last potassium was normal at 4.1. Her blood culture remained negative, urine culture remained negative. CAT scan of the head was negative for any acute intracranial changes. Chest x-ray, no acute cardiopulmonary changes and CAT scan of the chest also did not show any acute changes. Hospital Course: This is an 80-year-old female patient, admitted to the hospital after she presented to emergency room with complaints of fever, chills, body ache and headache. Please see dictated H and P for more information. After the patient was evaluated in the ER, she was admitted to the hospital. Her influenza A, B and COVID-19 test came back negative. The patient was admitted to the hospital with diagnosis of fever, rule out pneumonia. She has some sinus congestion, sinus drainage. Clinically, I was concerned about possibility of pneumonia. She had some left basal rales, but CAT scan did not identify pneumonia, but she was treated with IV antibiotics, Zosyn as I was clinically suspecting pneumonia problem. Her blood pressure was elevated during this hospitalization and we did add losartan and we will continue that on outpatient basis. Overall, the patient's condition has improved and she was discharged to go home in stable condition. Final Diagnoses: 1. Fever. 2. Rule out pneumonia. 3. Hypertension. 4. Hypothyroidism. 5. Hyperlipidemia. 6. Diverticulosis. 7. Vitamin D deficiency. 8. Peripheral neuropathy. 9. Osteoarthritis, multiple sites. GARTH/MODL Voice ID: [id number] Report ID: [id number] KYLE
== END 2020-09-23 15:47 | disposition home or self-care (01) | DRG 195 ==
LOC: ER 16:35 → ERHOLD 22:25 → 2ND 23:52 → OBSVTOIN 09-22 07:54
PROVIDERS: ADMIT Internal Medicine; ATTEND Internal Medicine
DX: J18.9 Pneumonia, unspecified organism (principal); E03.9 Hypothyroidism, unspecified; E55.9 Vitamin D deficiency, unspecified; M19.90 Unspecified osteoarthritis, unspecified site; G62.9 Polyneuropathy, unspecified; E78.5 Hyperlipidemia, unspecified; K57.90 Diverticulosis of intestine, part unspecified, without perforation or abscess without bleeding; I10 Essential (primary) hypertension; Z79.890 Hormone replacement therapy; Z79.82 Long term (current) use of aspirin; Z79.899 Other long term (current) drug therapy; Z90.710 Acquired absence of both cervix and uterus; Z90.49 Acquired absence of other specified parts of digestive tract; Z20.822 Contact with and (suspected) exposure to COVID-19
CPT/HCPCS: 0240U; 36415; 70450; 71045; 71250; 80048; 80053; 81003; 81015; 83605; 83735; 84132; 85025; 87040; 87086; 87088; 96361; 96374; 99285; G0378; J1650; J2543; J7030; J7040; J7512

== ENCOUNTER 2021-07-05 08:50 | Emergency (ER) | payer OTHER ==
--- OUTSIDE RECORDS SUMMARY | 2021-07-05 08:53 | XMS REPORT | Continuity of Care Document ---
:1940 Author Organization [facility] t Address [address] [place] [address] Care Team Providers Name Role Phone Isaiah Carrollacio Attending Clinician Unavailable Payers Payer Name Policy Type Policy Number Effective Date Expiration Date S ource Problems This patient has no known problems. Allergies, Adverse Reactions, Alerts Allergy Allergy Status Severity Reaction(s) Onset Inactive Treating Comm ents Source Name Type Date Date Clinician No Known DA Active [facility] 09-21 [facility] 00:00: [facility] 00 are [place] No Known DA Active [facility] Allergie 09-21 [facility] 00:00: [facility] 00 are [facility] Medications This patient has no known medications. Procedures This patient has no known procedures. Encounters Start End Encounter Admission Attending Care Care Encounter Source Date/Time Date/Time Type Type Clinicians Facility Department ID 2020-09-27 Inpatient EILEEN CarrollNC DAYS [id number] [facility] 08:30:00 Nathaniel [id number] [facility] are [place] Results Test Description Test Time Test Comments Results Result Comments Source Coronavirus 2018 nCoV Bedside 2020-09-25 11:01:00 Test Item Value Reference Range Interpretation Comme nts Coronavirus 2019 nCoV Negative Negative This t est had not been FDA cleared or Bedside (test code = approve d; This testhas been [id number]) authorized by FDA under an EUA for use byauthorize d laboratories only for the detecti on of nucleicacid from SARS-CoV-2, not for any other viruses orpathogens. ID NOW COVID-19 assay performed on th e ID NOWInstrument is a rapid molecul ar in vitro diagnostic testutilizing a n isothermal nucleic acid amplificat iontechnology intended for the qualita tive detection of nucleicacid fro m the SARS-CoV-2 viral RNA in direct n edgar,nasopharyngeal or throat swabs fr om individuals who aresuspected of COVID-19 by their healthcare prov ider withinthe first seven days of t he onset of symptoms. Testing isautho rized for laboratories certified under the ClinicalLaborat ory Improvement Amendments of 1 988 (CLIA), BASIC METABOLIC [id number] 10:35:00 Test Item Value Reference Range Interpretation Comments SODIUM (test code 142 mmol/L 135-145 N = NA) POTASSIUM (test 3.5 mmol/L 3.5-5.1 N code = K) CHLORIDE (test 109 mmol/L 98-107 H code = CL) CARBON DIOXIDE 29 mmol/L 21-32 N (test code = CO2) ANION GAP (test 7.5 2.0-16.0 N code = GAP) GLUCOSE (test code 85 mg/dL 65-99 N = GLU) BLOOD UREA 17 mg/dL 4-23 N NITROGEN (test code = BUN) GLOMERULAR >=60 max >60 The estimated FILTRATION RATE estimate ml/min glomerula r (test code = GFR) filtration rate is computed usingpatient ra ce, age (>18), sex, and serum creatinin e. If anyof the neede d data elements a re missing the Laboratory sarah ot compute an estimation of t he glomerular filtration rate . CREATININE (test 0.9 mg/dL 0.6-1.5 N code = CREAT) BUN/CREATININE 18.9 12.0-20.0 N RATIO (test code = BUN/CREA) CALCIUM (test code 8.4 mg/dL 8.5-10.1 L = CA)
[2021-07-05] MEDS ORDERED: FAMOTIDINE 20 MG/2 ML VIAL IV ONE (09:39)
[2021-07-05] MEDS ORDERED: ONDANSETRON 4 MG/2 ML VIAL ONE (09:39)
[2021-07-05 09:44] LABS: Absolute Lymphocytes (CBC) 2.6 K/uL (0.7-4.9); Hematocrit 41.1 % (36.0-45.0); MPV 9.2 fL (7.6-11.3)
[2021-07-05 09:49] LABS: Protime INR 1.21
[2021-07-05 10:10] LABS: Blood Morphology Comment NOT SEEN (NOT SEEN); Platelet Estimate ADEQ
--- NOTE | 2021-07-05 10:10 | RAD REPORT ---
EXAM DESCRIPTION: RAD - Chest Single View - 07/05/2021 9:56 am CLINICAL HISTORY: Nausea or vomiting COMPARISON: Portable September 2020 TECHNIQUE: AP portable chest image was obtained 07/05/2021 9:56 am . FINDINGS: No focal mass or consolidation identifiable. Prominent interstitial markings are seen thro ughout the lung lou but the pattern is not clearly different from prior study. Extent of chronic i nterstitial lung disease could mask early edema or infiltrate. Prominent upper lobe vasculature noted also unchanged. Heart size is upper normal but stable. Trachea is midline. No measurable pleural eff usion and no pneumothorax. No acute bony abnormality seen. No acute aortic findings suspected. IMPRESSION: No acute cardiopulmonary process. Above detailed findings are similar to September 2020.
[2021-07-05 10:13] LABS: Albumin 2.4 g/dL (3.4-5.0); Bilirubin Direct 0.1 mg/dL (0-0.2); Bilirubin Total 0.5 mg/dL (0.2-1.0); Magnesium 2.1 mg/dL (1.8-2.4); Potassium 3.3 mmol/L (3.5-5.1); Protein, Total 6.4 g/dL (6.4-8.2)
--- NOTE | 2021-07-05 11:05 | RAD REPORT ---
EXAM DESCRIPTION: CT - Abdomen Pelvis W Contrast - 07/05/2021 10:28 am CLINICAL HISTORY: Nausea vomiting and diarrhea;Abd pain COMPARISON: Abdomen Pelvis W Contrast dated 01/23/2020 TECHNIQUE: Biphasic, helical CT imaging of the abdomen and pelvis was performed following 100 ml non -ionic IV contrast. No oral contrast. All CT scans are performed using dose optimization technique as appropriate and may include automated exposure control or mA/KV adjustment according to patient size. FINDINGS: No suspicious findings in the lung bases. The liver, spleen, and pancreas show no suspicious findings. Cholecystectomy clips are present. Bilia ry tree dilatation is present believed to be reservoir affect typically seen after cholecystectomy. T his is similar to the 2019 study. Symmetric renal function is seen with no hydronephrosis or suspicious renal mass. No pyelonephritis o r acute parenchymal process. No adrenal abnormalities. Uterus is absent. Ovaries are absent or atroph ic. Pelvic floor laxity is present. Urinary bladder is only partially filled. Beltrán are slightly thic kened or shaggy in appearance. No bladder stone. Cystitis is unlikely but can be correlated with clin ical and laboratory findings. Bladder is not substantially different from the prior study. No gastric dilatation or wall thickening. There is a very minimal hiatal hernia present. No dilated s mall bowel loops. No appendicitis findings. Sigmoid colon is quite tortuous and redundant with mild t o moderate diverticulosis. No diverticulitis findings. Mucosal level inflammatory changes can be CT o ccult. No free air, free fluid or inflammatory stranding. No mass or bulky lymphadenopathy. Approximately 3 centimeter sized midline supraumbilical ventral hernias present. Neck is approximately 2 cm. This is slightly larger than 2020. No abnormal congestion or edema of the herniated fat. There is no bowel involvement. Disc and bone degenerative changes are present. Partial compression of T11 and T12 noted without acut e findings. Findings are not significantly different from the 2020 study. IMPRESSION: No obstruction, free air or emergent CT abdomen or pelvis finding. Patient has mild to moderate diverticulosis but no confirm diverticulitis. Mild or early mucosal leve l inflammatory changes could be present an occult on CT imaging. Beltrán of the urinary bladder are slightly shaggy. Cystitis is not excluded and needs correlation with clinical and laboratory findings.
[2021-07-05 12:45] LABS: Urine Blood Negative (Negative); Urine Glucose Negative (Negative); Urine Protein Negative (Negative)
[2021-07-05] MEDS ORDERED: ACETAMINOPHEN 325 MG TABLET ONE (12:50)
--- NOTE | 2021-07-05 14:14 | EDPHYS ---
Physician Documentation [facility] Name: Jigna Horne Age: 80 yrs Sex: Female : 1940 Arrival Date: 07/05/2021 Time: 08:56 Bed 5 Private MD: Sandra Alanis C ED Physician Eliud Stanley HPI: 07/05 09:30 This 80 yrs old Female presents to ER via Wheelchair with complaints of kdr Nausea/Vomiting/Diarrhea. 09:30 The patient presents to the emergency department with nausea, that is mild, vomiting, kdr that is intermittent, diarrhea, that is intermittent, 2 times today, abdominal pain, of the abdomen diffusely, described as achy, crampy, intermittent, and does not radiate. Onset: The symptoms/episode began/occurred gradually, 4 day(s) ago. Possible causes: unknown. The symptoms are aggravated by nothing. The symptoms are alleviated by food . Associated signs and symptoms: Pertinent positives: abdominal pain, nausea, vomiting. Severity of symptoms: At their worst the symptoms were mild in the emergency department the symptoms are unchanged. The patient has not experienced similar symptoms in the past. The patient has not recently seen a physician. Historical: - Allergies: 09:06 No Known Allergies; ic1 - Home Meds: 09:06 amlodipine oral [Active]; aspirin 81 mg Oral chew 1 tab once daily [Active]; gabapentin ic1 Oral [Active]; Hydrochlorothiazide Oral [Active]; Hydrocodone-Acetaminophen Oral [Active]; levothyroxine oral [Active]; prednisone 5 mg Oral tab once daily [Active]; - PMHx: 09:06 High Cholesterol; Hypertension; ic1 - Immunization history:: Adult Immunizations up to date. - Social history:: Smoking status: Patient denies any tobacco usage or history of. ROS: 09:30 Constitutional: Negative for fever, chills, and weight loss, Eyes: Negative for injury, kdr pain, redness, and discharge, Neck: Negative for injury, pain, and swelling, Cardiovascular: Negative for chest pain, palpitations, and edema, Respiratory: Negative for shortness of breath, cough, wheezing, and pleuritic chest pain, Back: Negative for injury and pain, : Negative for injury, bleeding, discharge, and swelling, MS/Extremity: Negative for injury and deformity, Skin: Negative for injury, rash, and discoloration, Neuro: Negative for headache, weakness, numbness, tingling, and seizure activity. Psych: Negative for depression, anxiety, suicide ideation, homicidal ideation, and hallucinations, Allergy/Immunology: Negative for hives, rash, and allergies, Endocrine: Negative for neck swelling, polydipsia, polyuria, polyphagia, and marked weight changes, Hematologic/Lymphatic: Negative for swollen nodes, abnormal bleeding, and unusual bruising. 09:30 Abdomen/GI: Positive for abdominal pain, nausea, vomiting, and diarrhea, Negative for dysphagia, rectal pain, rectal bleeding, bowel incontinence. Exam: 09:30 Constitutional: This is a well developed, well nourished patient who is awake, alert, kdr and in no acute distress. Head/Face: Normocephalic, atraumatic. Eyes: Pupils equal round and reactive to light, extra-ocular motions intact. Lids and lashes normal. Conjunctiva and sclera are non-icteric and not injected. Cornea within normal limits. Periorbital areas with no swelling, redness, or edema. Neck: Trachea midline, no thyromegaly or masses palpated, and no cervical lymphadenopathy. Supple, full range of motion without nuchal rigidity, or vertebral point tenderness. No Meningismus. Chest/axilla: Normal chest wall appearance and motion. Nontender with no deformity. No lesions are appreciated. Cardiovascular: Regular rate and rhythm with a normal S1 and S2. No gallops, murmurs, or rubs. Normal PMI, no JVD. No pulse deficits. Respiratory: Lungs have equal breath sounds bilaterally, clear to auscultation and percussion. No rales, rhonchi or wheezes noted. No increased work of breathing, no retractions or nasal flaring. Abdomen/GI: Soft, non-tender, with normal bowel sounds. No distension or tympany. No guarding or rebound. No evidence of tenderness throughout. Back: No spinal tenderness. No costovertebral tenderness. Full range of motion. Skin: Warm, dry with normal turgor. Normal color with no rashes, no lesions, and no evidence of cellulitis. Neuro: Awake and alert, GCS 15, oriented to person, place, time, and situation. Cranial nerves II-XII grossly intact. Motor strength 5/5 in all extremities. Sensory grossly intact. Cerebellar exam normal. Normal gait. Psych: Awake, alert, with orientation to person, place and time. Behavior, mood, and affect are within normal limits. 09:30 Musculoskeletal/extremity: Chronic lower extremity lymphedema. 09:55 ECG was reviewed by the Attending Physician. kdr Vital Signs: 09:05 BP 169 / 71; Pulse 77; Resp 18; Temp 98.9(O); Pulse Ox 99% on R/A; ic1 09:30 BP 164 / 88; Pulse 75; Resp 22 S; Pulse Ox 96% on R/A; Weight 86.18 kg (R); Height 5 jg9 ft. 0 in. (152.40 cm) (R); 10:31 BP 156 / 88; Pulse 74; Resp 16; Pulse Ox 95% ; bp 11:30 BP 128 / 97; Pulse 76; Resp 20 S; Pulse Ox 94% on R/A; jg9 12:30 BP 157 / 88; Pulse 72; Resp 20 S; Pulse Ox 94% on R/A; jg9 14:39 BP 140 / 79; Pulse 71; Resp 16; Temp 98.5; Pulse Ox 97% ; bp 09:30 Body Mass Index 37.11 (86.18 kg, 152.40 cm) jg9 MDM: 14:13 Patient medically screened. kdr 17:32 Data reviewed: vital signs, nurses notes, lab test result(s), radiologic studies. kdr Counseling: I had a detailed discussion with the patient and/or guardian regarding: the historical points, exam findings, and any diagnostic results supporting the discharge/admit diagnosis, lab results, radiology results, the need for outpatient follow up. 07/05 09:15 Order name: Basic Metabolic Panel; Complete Time: 11: [facility] 07/05 09:15 Order name: CBC with Diff; Complete Time: 11: [facility] 07/05 09:15 Order name: LFT's; Complete Time: 11: [facility] 07/05 09:15 Order name: Magnesium; Complete Time: 11: [facility] 07/05 09:15 Order name: NT PRO-BNP; Complete Time: 11: [facility] 07/05 09:15 Order name: PT-INR; Complete Time: 11: [facility] 07/05 09:15 Order name: Troponin HS; Complete Time: 11: [facility] 07/05 09:15 Order name: XRAY Chest (1 view); Complete Time: 11:00 kdr 07/05 09:15 Order name: Lipase; Complete Time: 11:00 kdr 07/05 09:29 Order name: CT Abd/Pelvis - IV Contrast Only; Complete Time: 12:25 kdr 07/05 10:11 Order name: Manual Differential; Complete Time: 11:00 EDMS 07/05 12:46 Order name: Urine Dipstick-Ancillary; Complete Time: 12:50 EDMS 07/05 09:15 Order name: EKG; Complete Time: 09:16 kdr 07/05 09:15 Order name: Cardiac monitoring; Complete Time: 09:47 kdr 07/05 09:15 Order name: EKG - Nurse/Tech; Complete Time: 09:47 kdr 07/05 09:15 Order name: IV Saline Lock; Complete Time: 09:47 kdr 07/05 09:15 Order name: Labs collected and sent; Complete Time: 09:47 kdr 07/05 09:15 Order name: O2 Per Protocol; Complete Time: 10:41 kdr 07/05 09:15 Order name: O2 Sat Monitoring; Complete Time: 09:47 kdr 07/05 12:26 Order name: Urine Dipstick-Ancillary (obtain specimen); Complete Time: 12:55 kdr 07/05 12:36 Order name: PO challenge; Complete Time: 12:53 kdr EC:55 Rate is 76 beats/min. Rhythm is regular, Sinus Rhythm with Occasional PVCs. QRS [place] is kdr Normal. [place] interval is normal. QRS interval is normal. QT interval is normal. Clinical impression: NSR w/ Non-specific ST/T Changes. Administered Medications: 09:38 Drug: Zofran (Ondansetron) 4 mg Route: IVP; Site: right forearm; jg9 14:21 Follow up: Response: No adverse reaction bp 09:40 Drug: Pepcid (famotidine) 20 mg Route: IVP; Site: right forearm; jg9 14:21 Follow up: Response: No adverse reaction bp 12:54 CANCELLED (Patient Refused): Tylenol 650 mg PO once jg9 12:54 Drug: Tylenol 325 mg Route: PO; jg9 14:21 Follow up: Response: No adverse reaction bp 14:20 Drug: Potassium Chloride 40 mEq Route: PO; bp 14:41 Follow up: Response: No adverse reaction bp Disposition Summary: 07/05/21 14:13 Discharge Ordered Location: Home kdr Problem: new kdr Symptoms: have improved kdr Condition: Stable kdr Diagnosis - Nausea with vomiting, unspecified kdr - Diarrhea, unspecified kdr - Weakness kdr Followup: kdr - With: Sandra Alanis MD - When: 2 - 3 days - Reason: If symptoms return, Further diagnostic work-up, Recheck today's complaints, Continuance of care, Re-evaluation by your physician Discharge Instructions: - Discharge Summary Sheet kdr - Nausea and Vomiting, Adult, [id number] kdr - Diarrhea, Adult, [id number] kdr - Weakness, [id number] kdr Forms: - Medication Reconciliation Form kdr - Thank You Letter kdr Prescriptions: - ondansetron 4 mg Oral tablet,disintegrating - place 1 tablet by TRANSLINGUAL route every 4-6 hours As needed; 16 tablet; kdr Refills: 0, Product Selection Permitted Signatures: Dispatcher [employer] Eliud Hernandez MD MD kdr Vivek Mendes, RN RN bp Tiffanie Kessler RN RN jg9 Edel Sim RN RN ic1 Corrections: (The following items were deleted from the chart) 12:54 12:49 Tylenol 650 mg PO once ordered. kdr jg9
--- NOTE | 2021-07-05 14:14 | ER ---
Nurse's Notes [facility] Name: Jigna Horne Age: 80 yrs Sex: Female : 1940 Arrival Date: 07/05/2021 Time: 08:56 Bed 5 Private MD: Sandra Alanis C Diagnosis: Nausea with vomiting, unspecified;Diarrhea, unspecified;Weakness Presentation: 07/05 09:05 Chief complaint: Patient states: Generalized weakness, fatigue, abd pain and n/v. ic1 Endorses loss of appetite. Coronavirus screen: Vaccine status: Patient reports receiving the 1st dose of the Covid vaccine. Ebola Screen: No symptoms or risks identified at this time. Initial Sepsis Screen: Does the patient meet any 2 criteria? No. Patient's initial sepsis screen is negative. Does the patient have a suspected source of infection? No. Patient's initial sepsis screen is negative. Risk Assessment: Do you want to hurt yourself or someone else? Patient reports no desire to harm self or others. Onset of symptoms. 09:05 Method Of Arrival: Wheelchair ic1 09:05 Acuity: SADIE 3 ic1 Triage Assessment: 09:06 General: Appears in no apparent distress. uncomfortable, Behavior is calm, cooperative. ic1 Pain: Complains of pain in back, chest, abdomen, pelvis, right arm, left arm, right leg and left leg. GI: Reports diarrhea, nausea, vomiting. Historical: - Allergies: 09:06 No Known Allergies; ic1 - Home Meds: 09:06 amlodipine oral [Active]; aspirin 81 mg Oral chew 1 tab once daily [Active]; gabapentin ic1 Oral [Active]; Hydrochlorothiazide Oral [Active]; Hydrocodone-Acetaminophen Oral [Active]; levothyroxine oral [Active]; prednisone 5 mg Oral tab once daily [Active]; - PMHx: 09:06 High Cholesterol; Hypertension; ic1 - Immunization history:: Adult Immunizations up to date. - Social history:: Smoking status: Patient denies any tobacco usage or history of. Screenin:46 Abuse screen: Denies threats or abuse. Denies injuries from another. Nutritional jg9 screening: Has had N/V for 3 or more days. Tuberculosis screening: No symptoms or risk factors identified. Fall Risk IV access (20 points). Gait- Weak (10 pts.). Assessment: 09:25 General: Appears distressed, Behavior is calm. Respiratory: Reports shortness of breath jg9 ongoing x3 days Airway is patent Respiratory effort is labored, Respiratory pattern is regular, Breath sounds are clear bilaterally. GI: Abdomen is round Abd is soft X 4 quads Abd is non tender Reports diarrhea, intolerance of fluids, intolerance of food, nausea, vomiting, since on/off x3 days. 10:31 Reassessment: No changes from previously documented assessment. Patient and/or family bp updated on plan of care and expected duration. Pain level reassessed. 11:54 Reassessment: No changes from previously documented assessment. Patient and/or family bp updated on plan of care and expected duration. Pain level reassessed. ALL CURRENT ORDERS COMPLETE. 13:00 Reassessment: No changes from previously documented assessment. Patient and/or family bp updated on plan of care and expected duration. Pain level reassessed. PO CHALLENGE SUCCESSFUL. 14:39 Reassessment: PT D/C HOME VIA W/C, DX WITH NAUSEA AND DIARRHEA. bp Vital Signs: 09:05 BP 169 / 71; Pulse 77; Resp 18; Temp 98.9(O); Pulse Ox 99% on R/A; ic1 09:30 BP 164 / 88; Pulse 75; Resp 22 S; Pulse Ox 96% on R/A; Weight 86.18 kg (R); Height 5 jg9 ft. 0 in. (152.40 cm) (R); 10:31 BP 156 / 88; Pulse 74; Resp 16; Pulse Ox 95% ; bp 11:30 BP 128 / 97; Pulse 76; Resp 20 S; Pulse Ox 94% on R/A; jg9 12:30 BP 157 / 88; Pulse 72; Resp 20 S; Pulse Ox 94% on R/A; jg9 14:39 BP 140 / 79; Pulse 71; Resp 16; Temp 98.5; Pulse Ox 97% ; bp 09:30 Body Mass Index 37.11 (86.18 kg, 152.40 cm) jg9 ED Course: 08:56 Patient arrived in ED. am2 08:56 Sandra Alanis MD is Private Physician. am2 09:06 Triage completed. ic1 09:08 Arm band placed on. ic1 09:10 Tiffanie Kessler, QUIQUE is Primary Nurse. jg9 09:12 Eliud Stanley MD is Attending Physician. kdr 09:30 Inserted saline lock: 22 gauge in right forearm, using aseptic technique. jg9 09:50 Resting quietly. Pt visited by son. jg9 09:50 Patient has correct armband on for positive identification. Bed in low position. Call jg9 light in reach. Side rails up X 1. 09:56 XRAY Chest (1 view) In Process Unspecified. EDMS 10:28 CT Abd/Pelvis - IV Contrast Only In Process Unspecified. EDMS 10:43 No apparent distress. Resting quietly. Pt visited by son. jg9 11:45 No apparent distress. Resting quietly. Awaiting lab results, Awaiting radiology jg9 results. Pt visited by son. 14:13 Sandra Alanis MD is Referral Physician. kdr 14:39 No provider procedures requiring assistance completed. IV discontinued, intact, bp bleeding controlled, No redness/swelling at site. Pressure dressing applied. Administered Medications: 09:38 Drug: Zofran (Ondansetron) 4 mg Route: IVP; Site: right forearm; jg9 14:21 Follow up: Response: No adverse reaction bp 09:40 Drug: Pepcid (famotidine) 20 mg Route: IVP; Site: right forearm; jg9 14:21 Follow up: Response: No adverse reaction bp 12:54 CANCELLED (Patient Refused): Tylenol 650 mg PO once jg9 12:54 Drug: Tylenol 325 mg Route: PO; jg9 14:21 Follow up: Response: No adverse reaction bp 14:20 Drug: Potassium Chloride 40 mEq Route: PO; bp 14:41 Follow up: Response: No adverse reaction bp Outcome: 14:13 Discharge ordered by . kdr 14:39 Discharged to home via wheelchair, with family. bp 14:39 Condition: stable 14:39 Discharge instructions given to patient, family, Instructed on discharge instructions, follow up and referral plans. medication usage, Demonstrated understanding of instructions, follow-up care, medications, Prescriptions given X 1. 14:41 Patient left the ED. bp Signatures: Dispatcher [employer] EDMS Eliud Stanley MD MD [facility] am2 Vivek Mendes RN RN bp Tiffanie Kessler RN RN jg9 Edel Sim, RN RN ic1
[2021-07-05] MEDS ORDERED: POTASSIUM CL SA 10 MEQ TAB PO ONE (14:25)
[2021-07-05 14:53] VITALS: BP 140/79; TEMP 98.5; O2SAT 97
== END 2021-07-05 14:41 | disposition home or self-care (01) ==
LOC: ER 08:50
DX: R19.7 Diarrhea, unspecified (principal); R53.1 Weakness; E78.00 Pure hypercholesterolemia, unspecified; I10 Essential (primary) hypertension; Z79.82 Long term (current) use of aspirin
CPT/HCPCS: 93005; 85025; 80048; 36415; 83735; 85610; 80076; 81003; 84484; 83690; 83880; 74177; 71045; 96375; 96374; 99284; Q9967; J2405

== ENCOUNTER 2022-04-02 12:32 | Observation (INO) | payer OTHER ==
[2022-04-02 13:05] LABS: SARS-CoV-2 Antigen Rapid Res Negative (Negative)
--- OUTSIDE RECORDS SUMMARY | 2022-04-02 15:50 | XMS REPORT | Continuity of Care Document ---
:1940 Author Organization [facility] t Address [address] [place] [address] Care Team Providers Name Role Phone Nathaniel Carroll Attending Clinician Unavailable Payers Payer Name Policy Type Policy Number Effective Date Expiration Date S ource Problems This patient has no known problems. Allergies, Adverse Reactions, Alerts Allergy Allergy Status Severity Reaction(s) Onset Inactive Treating Comm ents Source Name Type Date Date Clinician No Known DA Active [facility] 09-21 [facility] 00:00: [facility] 00 are [place] No Known DA Active [facility] 09-21 [facility] 00:00: Health 00 are [place] Medications This patient has no known medications. Procedures This patient has no known procedures. Encounters Start End Encounter Admission Attending Care Care Encounter Source Date/Time Date/Time Type Type Clinicians Facility Department ID 2020-09-21 Inpatient BRIANA Carroll [facility] [id number] [facility] 12:55:[address] [place] [address] are [place] Results Test Description Test Time Test Comments Results Result Comments Source Coronavirus 2018 nCoV Bedside 2020-09-25 11:01:00 Test Item Value Reference Range Interpretation Comme nts Coronavirus 2019 nCoV Negative Negative This t est had not been FDA cleared or Bedside (test code = approve d; This testhas been [id number]) authorized by FDA under an EUA for use byauthorize d laboratories only for the detecti on of nucleicacid from SARS-CoV-2, not for any other viruses orpathogens. ID NOW COVID-19 assay performed on th e ID NOWOrtegatrumthea is a rapid molecul ar in vitro [...] Amendments of 1 988 (CLIA), BASIC METABOLIC [id number] 10:35:00 Test Item Value Reference Range Interpretation [...]
[2022-04-02 17:15] LABS: Absolute Lymphocytes (CBC) 2.3 K/uL (0.7-4.9); Hematocrit 36.9 % (36.0-45.0); Lymphocytes % 30.7 % (15.3-44.8); MCV 94.5 fL (80-100); MPV 8.4 fL (7.6-11.3)
[2022-04-02 17:25] VITALS: O2SAT 95; BMI 31.2
[2022-04-02 17:37] LABS: Albumin 2.2 g/dL (3.4-5.0); Bilirubin Total 0.3 mg/dL (0.2-1.0); Magnesium 2.2 mg/dL (1.8-2.4); Protein, Total 6.6 g/dL (6.4-8.2)
[2022-04-02] MEDS: PIPER TAZO 3.375 GM in NA CHLORIDE 0.9% 100 ML IV SCH (18:31)
[2022-04-02] MEDS ORDERED: ENOXAPARIN 40 MG/0.4 ML SQ SCH (21:00)
[2022-04-02] MEDS ORDERED: HOME MED 1 EA UNK (Losartan Potassium [Losartan Potassium] 25 MG Tablet) PO SCH (21:00)
[2022-04-02] MEDS ORDERED: LOSARTAN POTASSIUM 50 MG TABLET PO SCH (21:00)
--- NOTE | 2022-04-02 21:06 | RAD REPORT ---
EXAM DESCRIPTION: RAD - Hand Left 3 View - 04/02/2022 8:35 pm CLINICAL HISTORY: cellulitis COMPARISON: No comparisons FINDINGS/IMPRESSION: No acute fracture. No malalignment. Moderate degenerative changes are present t he base of the thumb. Radiocarpal joint space narrowing. Osteopenia. Interphalangeal joint space narr owing. No soft tissue gas. No radiographic evidence of osteomyelitis. MRI is more sensitive in the ac [place] phase.
[2022-04-03] MEDS: PIPER TAZO 3.375 GM in NA CHLORIDE 0.9% 100 ML IV SCH ×2 (00:42→09:20)
[2022-04-03] MEDS ORDERED: POTASSIUM CL SA 10 MEQ TAB PO ONE (06:09)
[2022-04-03 08:42] VITALS: TEMP 97.5
[2022-04-03] MEDS ORDERED: GABAPENTIN 100 MG CAP PO SCH (09:00)
[2022-04-03] MEDS ORDERED: AMLODIPINE 5 MG TAB PO SCH (09:00)
[2022-04-03] MEDS ORDERED: predniSONE 5 MG TAB PO SCH (09:00)
[2022-04-03] MEDS ORDERED: ASPIRIN 81 MG CHEWABLE TABLET PO SCH (09:00)
--- NOTE | 2022-04-03 16:12 | HP ---
Date of Admission: 04/02/2022 Chief Complaint: Left hand pain and swelling. History Of Present Illness: This is an 81-year-old pleasant female patient, came into office today w ith her son with 4 days' history of swelling, redness, and pain involving left hand and left forearm. She denies any insect bite. No fall. No injury. Does not have any open wound in this area. She reports having some fever in the last few days. After she was evaluated at office, she was admitted to the hospital with cellulitis of left hand and left forearm. Allergies: NO KNOWN ALLERGIES. Review of Systems: Constitutional: As mentioned above. Dermatology: As mentioned above. Musculoskeletal: As mentioned above. All other systems reviewed and negative. Medications: Aspirin 81 mg daily, vitamin D3 2000 units daily, gabapentin 300 mg daily at bedtime, h ydralazine 25 mg 2 times a day, hydrochlorothiazide 12.5 mg daily, losartan 50 mg 2 times a day, pred nisone 5 mg daily, and she was taking leflunomide 20 mg daily, but not sure if she is still currently taking that or not as it was prescribed by her community aide. Past Medical History: Significant for peripheral neuropathy, hypertension, hypothyroidism, COVID-19 infection in December 2019, hyperlipidemia, diverticulosis, leg edema, varicose veins, osteoarthritis at multiple sites, rheumatoid arthritis, and vitamin D deficiency. Past Surgical History: Cataract surgery, had a cholecystectomy, hernia repair, hysterectomy, and lef t knee surgery. Family History: Father , had asthma and hypertension. Mother , had hypertension. Brother h ad liver cancer and sister , had pancreatic cancer. Social History: Negative for smoking and alcohol use. Physical Examination: Vital Signs: Her blood pressure was 130/81, pulse 79, respiratory rate 18, temperature 97.9, weight 171.4 pounds, height 60 inches. General: Awake, alert, oriented, not in distress. HEENT: Head atraumatic, normocephalic. Conjunctivae nonerythematous. Sclerae white. Mouth, no thr ush or edema noted. Ears/Nose, no mass, lesion, discharge noted. Neck: Supple. No JVD, lymph nodes, bruit, thyromegaly noted. Lungs: Bilateral good equal air entry. Clear to auscultation. No rhonchi. No rales. Heart: Normal heart sounds, no murmur or gallop. Abdomen: Soft, bowel sounds normal. No guarding, rigidity, tenderness, mass, hepatosplenomegaly, dis tention, or bruit noted. Extremities: The patient's left hand range of motion is limited in terms of flexion because of pain and swelling. Her left dorsum hand has moderate amount of swelling with pink, warm skin tender to to uch, no open wound. The left distal half of the forearm has mild swelling with pink and warm skin. No open wound. Skin: No rash, ulcer, cellulitis. Lymphatics: No lymph node enlargement in neck, supraclavicular, infraclavicular region. Neuro: No focal neurological deficit. Chest: Unremarkable. External Genitalia: Deferred. Rectal: Deferred. Laboratory Data: White count 7.4, hemoglobin 12.3, platelets 247. Sodium 136, potassium 3, chloride 98, bicarb 30, BUN 19, creatinine 1.1, glucose 98. Liver function tests unremarkable. Lactic acid 0.8. COVID-19 test negative. Impression: 1.Cellulitis, left hand and left forearm. 2.Hypokalemia. 3.Hypertension. 4.Rheumatoid arthritis. 5.Osteoarthritis. 6.Hyperlipidemia. 7.Hypothyroidism. 8.Diverticulosis. 9.Vitamin D deficiency. Plan: Admit the patient to the hospital for further evaluation and management of this problem. The patient is appropriate for inpatient and is expected to spend 2 midnights in hospital. We will go ah ead and give DVT prophylaxis using Lovenox. Hypokalemia will be corrected using electrolyte replacem ent protocol. For cellulitis, we will go ahead and start the patient on antibiotic, Zosyn as per ord er. We will get x-ray of the left hand. We will continue antihypertensive medication per order. Sh milan is on chronic steroid therapy using prednisone for her rheumatoid arthritis and we will continue th at as well. There is no need for any extra dose of prednisone at this point. The patient was advise d to keep her left hand elevated and I will see her tomorrow for followup. Details and plan of treat ment were discussed with the patient's son who was present with her and the patient's daughter who wa s contacted on the phone and details were discussed with her as well. GARTH/MODL Voice ID: [id number]
[2022-04-03 17:46] VITALS: BP 147/82
--- NOTE | 2022-04-04 11:12 | DS ---
Date of Discharge: 04/03/2022 Disposition: Discharged to go home. Physical Examination: HEENT: Unremarkable. Lungs: Clear to auscultation. Heart: Sounds normal. Abdomen: Soft. Bowel sounds normal. No guarding, rigidity, tenderness, distention. Extremity: Trace leg edema. Left upper extremity shows significant improvement in edema of the left hand. The patient has now very minimal edema of left hand and the redness and the warmness from lef t dorsum hand and distal forearm has shown significant improvement. Laboratory Data: Today; , chloride 100, bicarb 30, BUN 14, creatinine 0.83, glucose 88. Y esterday, potassium was 3 also. Potassium replacement was ordered, today 40 mEq of potassium chlorid e was given by mouth today. Discharge Medications And Instructions: 1.Continue all prior home medications. 2.Follow up at my office next week. 3.Take Augmentin 875 mg 1 tablet by mouth 2 times a day for 10 days. Hospital Course: This is an 81-year-old very pleasant female patient, who was admitted to the hospit al with significant pain, swelling and redness of the left hand and left distal forearm. Please see dictated H and P for more information. After she was evaluated at the office, she was admitted to [facility] with cellulitis of left upper extremity. IV antibiotic was started, which was Zosyn and o vernight her condition has shown significant improvement. Left hand x-ray was done which showed neff ges of arthritis, no other acute findings. Considering the patient showing significant improvement o vernight, she was discharged to go home today with oral antibiotics to be continued on outpatient bas is. I did advise her to keep her left upper extremity elevated all the time. Her range of motion of left hand has improved significantly along with improvement in pain, swelling, and stiffness. Discharge Diagnoses: 1.Cellulitis, left upper extremity. 2.Hypokalemia. 3.Osteoarthritis, multiple sites. 4.Rheumatoid arthritis. 5.Hypertension. 6.Hyperlipidemia. GARTH/MODL Voice ID: [id number] Report ID: [id number]
== END 2022-04-03 14:16 | disposition home or self-care (01) ==
LOC: INTOOBSV 15:47 → 4TH 15:47
PROVIDERS: ADMIT Internal Medicine; ATTEND Internal Medicine
DX: L03.114 Cellulitis of left upper limb (principal); E87.6 Hypokalemia; M06.9 Rheumatoid arthritis, unspecified; I10 Essential (primary) hypertension; M15.9 Polyosteoarthritis, unspecified; E78.5 Hyperlipidemia, unspecified; Z79.52 Long term (current) use of systemic steroids; Z79.82 Long term (current) use of aspirin; Z79.899 Other long term (current) drug therapy; Z20.822 Contact with and (suspected) exposure to COVID-19
CPT/HCPCS: 85025; 80048; 36415; 83735; 83605; 80053; 73130; 87811; G0379; J2543 ×3; J7512; J1650; G0378 ×2

== ENCOUNTER 2023-01-19 01:48 | Emergency (ER) | payer OTHER ==
--- OUTSIDE RECORDS SUMMARY | 2023-01-19 02:05 | XMS REPORT | Continuity of Care Document ---
:1940 Author Organization [facility] t Address [address] [facility] [address] [place] [address] Care Team Providers Name Role Phone Nathaniel Carroll Attending Clinician Unavailable Payers Payer Name Policy Type Policy Number Effective Date Expiration Date S ource Problems This patient has no known problems. Allergies, Adverse Reactions, Alerts Allergy Allergy Status Severity Reaction(s) Onset Inactive Treating Comm ents Source Name Type Date Date Clinician No Known DA Active U [facility] 09-21 [facility] 00:00: Health 00 are [place] No Known DA Active [facility] 09[facility]21 [facility] 00 are [place] Medications This patient has no known medications. Procedures This patient has no known procedures. Encounters Start End Encounter Admission Attending Care Care Encounter Source Date/Time Date/Time Type Type Clinicians Facility Department ID 2020-09-21 Inpatient BRIANA Carroll [facility] [id number] [facility] 12:55:[address] [place] [address] are [place] Results Test Description Test Time Test Comments Results Result Comments Source Coronavirus 2018 nCoV Bedside 2020-09-25 11:01:00 Test Item Value Reference Range Interpretation Comme nts Coronavirus 2019 nCoV Negative Negative This t est had not been FDA cleared or Bedside (test code = approve d; This testhas been [id number]) authorized by FDA under an EUA for use byauthorize d [employer] only for the detecti on of nucleicacid [...] Amendments of 1 988 (CLIA), BASIC METABOLIC [id number] 10:35:00 Test Item Value Reference Range Interpretation [...] code 8.4 mg/dL 8.5-10.1 L = [place]) Notes Date/Time Note Provider Source 2020-09-25 10:18:00-00:00 [id number] [facility] [address] [facility] [address] PATIENT NAME: EDU MORALEZ ADMIT DATE: 0 09/27/20 ACCOUNT NO: [id number] ROOM NO: AGE: 80 REPORT TYPE: eELECTROCARDIOGRAM SEX: F ADMITTING PHYSICIAN: ATTENDING PHYSICIAN:Nathaniel Carroll MD Order: [id number] Test Reason : ANESTHESIA PRE OP Test Date/Time Stamp: FriSep 25 2020 10:18:02 Blood Pressure : / mmHG Vent. Rate : 085 BPM Atrial Rate : 085 BPM P-R Int : 130 ms QRS Dur : 072 ms QT Int : 378 ms P-R-T Axes : 002 091 020 degree s QTc Int : 449 ms Normal sinus rhythm Rightward axis Septal infarct , age undetermined Abnormal ECG No previous ECGs available Confirmed by MD Hopkins Chaitanya ([id number]) on 09/28 12:28:47 AM Referred By: Nathaniel Carroll Confirmed by:Manuel Hopkins MD at [address] [place] [id number] PATIENT NAME: EDU MORALEZ ACCOUNT #: [id number]
[2023-01-19] MEDS ORDERED: MORPHINE 4 MG/ML SYR ONE (03:08)
[2023-01-19] MEDS ORDERED: LIDOCAINE 4% PATCH ONE (03:08)
[2023-01-19] MEDS ORDERED: TIZANIDINE 4 MG TABLET ONE (03:15)
[2023-01-19 03:36] LABS: Specific Gravity 1.022 (1.005-1.030); Urine Bacteria None Seen /HPF (<20); Urine Bilirubin NEGATIVE (Negative); Urine Blood Negative (Negative); Urine Clarity Clear (Clear); Urine Color Yellow (Yellow); Urine Glucose NEGATIVE (Negative); Urine Mucus Slight /HPF (None Seen); Urine Protein TRACE (Negative); Urine RBC <5 /HPF (None Seen); Urine Urobilinogen Normal (Normal); Urine pH 5.5 (5.0-7.0)
--- NOTE | 2023-01-19 03:49 | ER ---
Nurse's Notes [facility] Name: Jigna Horne Age: 82 yrs Sex: Female : 1940 Arrival Date: 01/19/2023 Time: 01:48 Bed 4 Private MD: Diagnosis: Muscle Spasm;Left sided lower back pain Presentation: 01/19 02:16 Chief complaint: Patient states: I have been having back spasms since . I took jb4 300mg of gabapentin at 2130 and 500 mg of tylenol at 0030. Coronavirus screen: At this time, the client does not indicate any symptoms associated with coronavirus-19. Ebola Screen: No symptoms or risks identified at this time. Initial Sepsis Screen: Does the patient meet any 2 criteria? No. Patient's initial sepsis screen is negative. Does the patient have a suspected source of infection? No. Patient's initial sepsis screen is negative. Risk Assessment: Do you want to hurt yourself or someone else? Patient reports no desire to harm self or others. Onset of symptoms was January 19, 2023. Transition of care: patient was not received from another setting of care. 02:16 Method Of Arrival: Wheelchair jb4 02:16 Acuity: SADIE 3 jb4 Historical: - Allergies: 02:18 No Known Allergies; jb4 - PMHx: 02:18 High Cholesterol; Hypertension; jb4 - Immunization history:: Adult Immunizations up to date. - Social history:: Smoking status: Patient denies any tobacco usage or history of. Screenin:03 [facility] ED Fall Risk Assessment (Adult) History of falling in the last 3 months, jb4 including since admission No falls in past 3 months (0 pts) Confusion or Disorientation No (0 pts) Score/Fall Risk Level 0 - 2 = Low Risk Oriented to surroundings, Maintained a safe environment. Abuse screen: Denies threats or abuse. Nutritional screening: No deficits noted. Tuberculosis screening: No symptoms or risk factors identified. Assessment: 02:19 General: Appears in no apparent distress. uncomfortable, Behavior is calm, cooperative, jb4 appropriate for age. Pain: Complains of pain in left mid back Pain does not radiate. Pain currently is 10 out of 10 on a pain scale. Quality of pain is described as Spasm. Neuro: Level of Consciousness is awake, alert, obeys commands, Oriented to person, place, time, situation. Cardiovascular: Patient's skin is warm and dry. Respiratory: Airway is patent Respiratory effort is even, unlabored, Respiratory pattern is regular, symmetrical. GI: No signs and/or symptoms were reported involving the gastrointestinal system. : No signs and/or symptoms were reported regarding the genitourinary system. EENT: No signs and/or symptoms were reported regarding the EENT system. Derm: Skin is intact, Skin is pink, warm \T\ dry. Musculoskeletal: Circulation, motion, and sensation intact. Range of motion: intact in all extremities. 03:42 Reassessment: Patient appears in no apparent distress at this time. Patient and/or jb4 family updated on plan of care and expected duration. Pain level reassessed. Patient is alert, oriented x 3, equal unlabored respirations, skin warm/dry/pink. Vital Signs: 02:16 BP 205 / 83; Pulse 69; Resp 16; Temp 97.6(O); Pulse Ox 97% on R/A; Weight 75.75 kg (R); jb4 Height 5 ft. 0 in. (R); Pain 10/10; 03:42 BP 166 / 120; Pulse 65; Resp 16; Pulse Ox 100% on R/A; jb4 02:16 Body Mass Index 32.61 (75.75 kg, 152.4 cm) jb4 02:16 Pain Scale: Adult jb4 ED Course: 01:52 Patient arrived in ED. kj1 02:01 Delphine Lizama MD is Attending Physician. sd2 02:11 Mohsen Knott RN is Primary Nurse. rv 02:18 Triage completed. jb4 02:18 Arm band placed on right wrist. jb4 04:03 Patient has correct armband on for positive identification. Bed in low position. Call jb4 light in reach. Side rails up X 1. Client placed on continuous cardiac and pulse oximetry monitoring. NIBP monitoring applied. 04:03 No provider procedures requiring assistance completed. Patient did not have IV access jb4 during this emergency room visit. Administered Medications: 03:11 Drug: morphine IM 4 mg Route: IM; Site: left deltoid; rv 03:11 Drug: Lidoderm Topical Patch 5 % (700 mg/patch) 1 patches Route: Topical; Site: rv affected area; 03:26 Drug: tiZANidine PO 4 mg Route: PO; rv Outcome: 03:48 Discharge ordered by . sd2 04:03 Discharged to home via wheelchair, with family. jb4 04:03 Condition: stable 04:03 Discharge instructions given to patient, Instructed on discharge instructions, follow up and referral plans. medication usage, Demonstrated understanding of instructions, follow-up care, medications, Prescriptions given X 2. 04:04 Patient left the ED. jb4 Signatures: Maninder Menchaca RN RN jb4 Mohsen Knott RN RN vasu Ocampo, Veronica kj1 Delphine Lizama MD MD sd2
--- NOTE | 2023-01-19 03:49 | EDPHYS ---
Physician Documentation [facility] Name: Jigna Horne Age: 82 yrs Sex: Female : 1940 Arrival Date: 01/19/2023 Time: 01:48 Bed 4 Private MD: ED Physician Delphine Lizama HPI: 01/19 02:26 This 82 yrs old Female presents to ER via Wheelchair with complaints of Low sd2 Back Pain - SPASMS. 02:26 82 yo F presents with CC of left sided lower back pain and spasms that has been ongoing sd2 since . States it improved but then returned and has not improved with taking Tylenol and Gabapentin at home today. Denies fever, neck stiffness, numbness, weakness, tingling or changes in bowel or bladder movements. . Historical: - Allergies: 02:18 No Known Allergies; jb4 - PMHx: 02:18 High Cholesterol; Hypertension; jb4 - Immunization history:: Adult Immunizations up to date. - Social history:: Smoking status: Patient denies any tobacco usage or history of. ROS: 02:26 Constitutional: Negative for fever, chills, and weight loss, Eyes: Negative for injury, sd2 pain, redness, and discharge, Cardiovascular: Negative for chest pain, palpitations, and edema, Respiratory: Negative for shortness of breath, cough, wheezing. Abdomen/GI: Negative for abdominal pain, nausea, vomiting, diarrhea. Back: Negative for injury and positive for pain, : Negative for dysuria, urinary frequency, hesitancy, urgency and hematuria. MS/Extremity: Negative for injury and deformity, Skin: Negative for injury, rash, and discoloration, Neuro: Negative for headache, numbness and tingling. Exam: 02:26 Constitutional: This is a well developed, well nourished patient who is awake, alert, sd2 and in no acute distress. Head/Face: Normocephalic, atraumatic. Eyes: EOMI, normal conjunctiva bilaterally Neck: Trachea midline, no thyromegaly or masses palpated, and no cervical lymphadenopathy. Supple, full range of motion without nuchal rigidity, or vertebral point tenderness. No Meningismus. Chest/axilla: Normal chest wall appearance and motion. Nontender with no deformity. Cardiovascular: Regular rate and rhythm with a normal S1 and S2. No gallops, murmurs, or rubs. 2+ distal pulses. Respiratory: Lungs have equal breath sounds bilaterally, clear to auscultation and percussion. No rales, rhonchi or wheezes noted. No increased work of breathing, no retractions or nasal flaring. Abdomen/GI: Soft, non-tender, with normal bowel sounds. No guarding or rebound. No evidence of tenderness throughout. Back: No spinal tenderness. TTP of the left lumbar paraspinal area up to the flank and CVA area. No pain with palpation on the right side of the back or midline. No spinal stepoffs or deformities. Full range of motion. Skin: Warm, dry with normal turgor. Normal color with no rashes, no lesions, and no evidence of cellulitis. MS/ Extremity: Pulses equal, no cyanosis. Neurovascular intact. Full, normal range of motion. Neuro: Awake and alert, GCS 15, oriented to person, place, time, and situation. Cranial nerves II-XII grossly intact. Motor strength 5/5 in all extremities. Sensory grossly intact. Psych: Awake, alert, with orientation to person, place and time. Behavior, mood, and affect are within normal limits. Vital Signs: 02:16 BP 205 / 83; Pulse 69; Resp 16; Temp 97.6(O); Pulse Ox 97% on R/A; Weight 75.75 kg (R); jb4 Height 5 ft. 0 in. (R); Pain 10/10; 03:42 BP 166 / 120; Pulse 65; Resp 16; Pulse Ox 100% on R/A; jb4 02:16 Body Mass Index 32.61 (75.75 kg, 152.4 cm) [facility] 02:16 Pain Scale: Adult jb4 MDM: 02:01 Patient medically screened. sd2 02:26 Differential diagnosis: fracture, sprain, strain, contusion, herniated disc, UTI, sd2 spinal stenosis, spasm among others. Data reviewed: vital signs, nurses notes. I considered the following discharge prescriptions or medication management in the emergency department Medications were administered in the Emergency Department. See MAR. Historians other than the Patient: Daughter/Son: provides further history. Care significantly affected by the following chronic conditions: Hypertension. 03:46 Counseling: I had a detailed discussion with the patient and/or guardian regarding: the sd2 historical points, exam findings, and any diagnostic results supporting the discharge/admit diagnosis, lab results, the need for outpatient follow up, to return to the emergency department if symptoms worsen or persist or if there are any questions or concerns that arise at home. ED course: Pt's back pain improved after treatment but she does complain of some abdominal discomfort and GI upset from the medications. Will give lower dosages for home prescriptions. Advised of need for follow up with PCP. Verbalizes understanding of discharge plan and strict return precautions. . 01/19 02:26 Order name: Urinalysis w/ reflexes; Complete Time: 03:37 sd2 01/19 03:46 Order name: Ice pack; Complete Time: 03:49 sd2 Administered Medications: 03:11 Drug: morphine IM 4 mg Route: IM; Site: left deltoid; rv 03:11 Drug: Lidoderm Topical Patch 5 % (700 mg/patch) 1 patches Route: Topical; Site: rv affected area; 03:26 Drug: tiZANidine PO 4 mg Route: PO; rv Disposition Summary: 01/19/23 03:48 Discharge Ordered Location: Home sd2 Problem: new sd2 Symptoms: have improved sd2 Condition: Stable sd2 Diagnosis - Muscle Spasm sd2 - Left sided lower back pain sd2 Followup: sd2 - With: Private Physician - When: 2 - 3 days - Reason: Recheck today's complaints, Continuance of care, Re-evaluation by your physician Discharge Instructions: - Discharge Summary Sheet sd2 - Acute Back Pain, Adult sd2 - Muscle Cramps and Spasms sd2 Forms: - Medication Reconciliation Form sd2 - Thank You Letter sd2 - Antibiotic Education sd2 - Prescription Opioid Use sd2 - Patient Portal Instructions sd2 - Leadership Thank You Letter sd2 Prescriptions: - acetaminophen-codeine 300-15 mg Oral tablet - take 1 tablet by ORAL route every 6 hours As needed as needed for pain; 12 sd2 tablet; Refills: 0, Product Selection Permitted - tizanidine (bulk) - take 1 tablet by ORAL route every 8 hours As needed; 15 tablet; Refills: 0, sd2 Product Selection Permitted Signatures: Dispatcher [employer] Maninder Todd RN RN jb4 Mohsen Knott RN RN rv Alda, Delphine, MD MD sd2
[2023-01-19 04:12] VITALS: TEMP 97.6
[2023-01-19 04:14] VITALS: BP 166/120; O2SAT 100
== END 2023-01-19 04:04 | disposition home or self-care (01) ==
LOC: ER 01:48
DX: M62.830 Muscle spasm of back (principal)
CPT/HCPCS: 81001; 96372; 99284; J2001

== ENCOUNTER 2023-01-21 06:22 | Emergency (ER) | payer OTHER ==
--- OUTSIDE RECORDS SUMMARY | 2023-01-21 06:27 | XMS REPORT | Continuity of Care Document ---
:[address] [facility] t Address [address] [facility] [address] [place] [address] Care Team Providers Name Role Phone Nathaniel Carroll Attending Clinician Unavailable Payers Payer Name Policy Type Policy Number Effective Date Expiration Date S ource Problems This patient has no known problems. Allergies, Adverse Reactions, Alerts Allergy Allergy Status Severity Reaction(s) Onset Inactive Treating Comm ents Source Name Type Date Date Clinician No Known DA Active U [facility] 09[facility]21 [facility] 00:00: Health 00 are [place] No Known DA Active U [facility] 09-21 [place] [facility] 00:00: Health 00 are [place] Medications This patient has no known medications. Procedures This patient has no known procedures. Encounters Start End Encounter Admission Attending Care Care Encounter Source Date/Time Date/Time Type Type Clinicians Facility Department ID 2020-09-21 Inpatient BRIANA Carroll [facility] [id number] [facility] 12:55:[address] [place] [address] are [place] Results Test Description Test Time Test Comments Results Result Comments Source Coronavirus 2018 nCoV Bedside 2020-09-25 11:01:00 Test Item Value Reference Range Interpretation Comme nts Coronavirus 2019 nCoV Negative Negative This t est had not been FDA cleared or Bedside (test code = approve d; This testhas been [id number]) authorized by FDA under an EUA for use byauthorize d [employer] only for the detecti on of nucleicacid [...] Amendments of 1 988 (CLIA), BASIC METABOLIC [id number] 10:35:00 Test Item Value Reference Range Interpretation [...] Notes Date/Time Note Provider Source 2020-09-25 10:18:00-00:00 [id number] [facility] [address] [facility] [address] PATIENT NAME: EDU MORALEZ ADMIT DATE: 0 09/27/20 ACCOUNT NO: [id number] ROOM NO: AGE: 80 REPORT TYPE: eELECTROCARDIOGRAM SEX: F ADMITTING PHYSICIAN: ATTENDING PHYSICIAN:Nathaniel Carroll MD Order: [id number] Test Reason : ANESTHESIA PRE OP Test [...] ECGs available Confirmed by MD Hopkins Chaitanya ([id number]) on 09/28 12:28:47 AM Referred By: Nathaniel Carroll Confirmed by:Manuel Hopkins MD at [address] [place] [address] PATIENT NAME: EDU MORALEZ ACCOUNT #: [id number]
[2023-01-21 07:38] LABS: Absolute Lymphocytes (CBC) 2.1 K/uL (0.7-4.9); Hematocrit 36.9 % (36.0-45.0); Lymphocytes % 30.9 % (15.3-44.8); MPV 8.2 fL (7.6-11.3); Platelets 199 thou/uL (152-406); RBC Red Blood Cell Count 3.92 M/uL (3.86-4.86)
[2023-01-21] MEDS ORDERED: MORPHINE 2 MG/ML SYR ONE (07:43)
[2023-01-21] MEDS ORDERED: ONDANSETRON 4 MG/2 ML VIAL ONE (07:43)
[2023-01-21 07:55] LABS: Albumin 2.6 g/dL (3.4-5.0); Bilirubin Total 0.4 mg/dL (0.2-1.0); Potassium 3.7 mEq/L (3.5-5.1); Protein, Total 6.4 g/dL (6.4-8.2)
--- NOTE | 2023-01-21 08:31 | RAD REPORT ---
EXAM DESCRIPTION: CT - Abdomen Pelvis W Contrast - 01/21/2023 8:08 am CLINICAL HISTORY: Abdominal pain/left flank pain COMPARISON: 2021 and 2008 TECHNIQUE: Computed axial tomography of the abdomen pelvis was obtained. 100 cc Isovue-300 was admin istered intravenously. Oral contrast was not requested which limits evaluation of bowel and appendix All CT scans are performed using dose optimization technique as appropriate and may include automated exposure control or mA/KV adjustment according to patient size. FINDINGS: Cholecystectomy. Mild prominence of biliary tree without significant change. Spleen, pancr eas, adrenals and right kidney unremarkable. 14 millimeter intermediate density left renal mass without significant change from 2009 likely benign Moderate umbilical hernia contains fat. Hysterectomy. No adnexal mass. IMPRESSION: No acute abnormality is displayed.
[2023-01-21 08:39] LABS: Specific Gravity 1.014 (1.005-1.030); Urine Bilirubin NEGATIVE (Negative); Urine Blood Negative (Negative); Urine Clarity Clear (Clear); Urine Color Light-Yellow (Yellow); Urine Glucose NEGATIVE (Negative); Urine Protein NEGATIVE (Negative); Urine Urobilinogen Normal (Normal); Urine pH 6.5 (5.0-7.0)
[2023-01-21] MEDS ORDERED: KETOROLAC 30 MG/ML INJ ONE (11:22)
[2023-01-21] MEDS ORDERED: dexAMETHasone 10 MG/ML VIAL ONE (11:22)
--- NOTE | 2023-01-21 11:43 | EDPHYS ---
Physician Documentation [facility] Name: Jigna Horne Age: 82 yrs Sex: Female : 1940 Arrival Date: 01/21/2023 Time: 06:22 Bed 5 Private MD: ED Physician Maynor Jane HPI: 01/21 10:01 This 82 yrs old Female presents to ER via Wheelchair with complaints of flank rn Pain. 10:01 The patient presents with pain that is acute. The symptoms are located in the left rn flank. 10:01 Onset: The symptoms/episode began/occurred 5 day(s) ago. The pain does not radiate. rn Associated signs and symptoms: Pertinent negatives: abdominal pain, chest pain, fever, hematuria, incontinence, urinary retention. Modifying factors: The patient symptoms are alleviated by nothing, the patient symptoms are aggravated by palpation. Severity of symptoms: At their worst the symptoms were moderate, in the emergency department the symptoms are unchanged. The patient has not experienced similar symptoms in the past. The patient has been recently seen at the [facility] Emergency Department. Pt reports 5 days of left flank pain, no trauma, no fever, seen here and no diagnosis made. Reports pain has not improved and slightly worsened. . Historical: - Allergies: 07:10 No Known Allergies; ap3 - PMHx: 07:10 High Cholesterol; Hypertension; ap3 - Immunization history:: Client reports receiving the 2nd dose of the Covid vaccine. - Social history:: Smoking status: Patient denies any tobacco usage or history of. - Family history:: not pertinent. - Hospitalizations: : No recent hospitalization is reported. ROS: 10:01 Constitutional: Negative for fever, chills, and weight loss, Eyes: Negative for injury, rn pain, redness, and discharge, Neck: Negative for injury, pain, and swelling, Cardiovascular: Negative for chest pain, palpitations, and edema, Respiratory: Negative for shortness of breath, cough, wheezing, and pleuritic chest pain, Abdomen/GI: Negative for abdominal pain, nausea, vomiting, diarrhea, and constipation, Back: Negative for injury MS/Extremity: Negative for injury and deformity, Skin: Negative for injury, rash, and discoloration, Neuro: Negative for headache, weakness, numbness, tingling, and seizure. Exam: 10:01 Constitutional: This is a well developed, well nourished patient who is awake, alert, rn appears uncomfortable holding left side Head/Face: Normocephalic, atraumatic. ENT: MMM Cardiovascular: Regular rate and rhythm. No pulse deficits. Respiratory: No increased work of breathing, no retractions or nasal flaring. Abdomen/GI: soft, non-tender Back: No spinal tenderness. No costovertebral tenderness. Skin: NO rash, no evidence of shingles MS/ Extremity: Pulses equal, no cyanosis. Neurovascular intact. Full, normal range of motion. Equal circumference. Neuro: Awake and alert, GCS 15, oriented to person, place, time, and situation. Vital Signs: 07:08 BP 175 / 66; Pulse 62; Resp 19; Temp 98.4; Pulse Ox 100% ; Weight 75.75 kg; Pain 9/10; ap3 07:39 BP 173 / 75; Pulse 66; Resp 19; Pulse Ox 99% ; ko1 08:01 BP 178 / 74; Pulse 68; Resp 18; Pulse Ox 100% ; ko1 08:59 BP 183 / 78; Pulse 66; Resp 18; Pulse Ox 99% ; ko1 09:40 BP 168 / 72; Pulse 72; Resp 18; Pulse Ox 99% ; ko1 10:32 BP 150 / 98; Pulse 68; Resp 18; Pulse Ox 99% ; ko1 07:08 Pain Scale: Adult ap3 MDM: 06:58 Patient medically screened. rn 11:40 Differential diagnosis: arthritis, Osteoarthritis Pyelonephritis sprain, rn Ureterolithiasis diverticulitis, neuropathic pain, shingles, UTI. Data reviewed: vital signs, nurses notes, lab test result(s), radiologic studies, CT scan, and as a result, I will discharge patient. Counseling: I had a detailed discussion with the patient and/or guardian regarding: the historical points, exam findings, and any diagnostic results supporting the discharge/admit diagnosis, lab results, radiology results, the need for outpatient follow up, to return to the emergency department if symptoms worsen or persist or if there are any questions or concerns that arise at home. Special discussion: I discussed with the patient/guardian in detail that at this point there is no indication for admission to the hospital. It is understood, however, that if the symptoms persist or worsen the patient needs to return immediately for re-evaluation. ED course: No acute findings or significant changes from a few days ago, neg UA, afebrile, no trauma. Will dc home with return precautions. . 01/21 07:20 Order name: CBC with Diff; Complete Time: 08:35 rn 01/21 07:20 Order name: CMP; Complete Time: 08:35 rn 01/21 07:20 Order name: Lipase; Complete Time: 08:35 rn 01/21 07:20 Order name: Urinalysis w/ reflexes rn 01/21 07:20 Order name: CT Abd/Pelvis - IV Contrast Only; Complete Time: 08:35 rn 01/21 07:20 Order name: IV Saline Lock; Complete Time: 07:30 rn 01/21 07:20 Order name: Labs collected and sent; Complete Time: 07:30 rn Administered Medications: 07:34 Drug: Ondansetron IVP 4 mg Route: IVP; Site: right antecubital; ko1 07:38 Drug: morphine IVP or IV 2 mg Route: IVP; Infused Over: 4 mins; Site: right antecubital;ko1 11:20 Drug: Decadron - Dexamethasone IVP 10 mg Route: IVP; Site: right antecubital; ko1 11:25 Drug: Ketorolac IVP 15 mg Route: IVP; Site: right antecubital; ko1 Disposition Summary: 01/21/23 11:42 Discharge Ordered Location: Home rn Problem: new rn Symptoms: have improved rn Condition: Stable rn Diagnosis - Low back pain rn - Flank Pain rn Followup: rn - With: Private Physician - When: As needed - Reason: Recheck today's complaints, Re-evaluation by your physician Discharge Instructions: - Discharge Summary Sheet rn - Flank Pain, Adult rn - Pain Without a Known Cause rn Forms: - Medication Reconciliation Form rn - Thank You Letter rn - Antibiotic emergency department rn - Prescription Opioid Use rn - Patient Portal Instructions rn - Leadership Thank You Letter rn Prescriptions: - Prednisone 20 mg Oral Tablet - take 3 tablets by ORAL route once daily for 5 days; 15 tablet; Refills: 0, rn Product Selection Permitted - Tramadol 50 mg Oral Tablet - take 1 tablet by ORAL route every 8 hours as needed; 12 tablet; Refills: 0, rn Product Selection Permitted Signatures: Dispatcher [employer] Maynor Ulloa MD MD rn Prokisch, Amanda, RN RN ap3 Reina Blanchard, RN RN ko1
--- NOTE | 2023-01-21 11:43 | ER ---
Nurse's Notes [facility] Name: Jigna Horne Age: 82 yrs Sex: Female : 1940 Arrival Date: 01/21/2023 Time: 06:22 Bed 5 Private MD: Diagnosis: Low back pain;Flank Pain Presentation: 01/21 07:08 Chief complaint: Patient states: she has been having left lower back and left flank ap3 pain since 01/16/23. patient states she was evaluated here recently for this pain, but the pain has not improved. patient currently rates the pain as a 9/10. Coronavirus screen: At this time, the client does not indicate any symptoms associated with coronavirus-19. Ebola Screen: No symptoms or risks identified at this time. Initial Sepsis Screen: Does the patient meet any 2 criteria? No. Patient's initial sepsis screen is negative. Does the patient have a suspected source of infection? No. Patient's initial sepsis screen is negative. Risk Assessment: Do you want to hurt yourself or someone else? Patient reports no desire to harm self or others. Onset of symptoms was January 16, 2023. 07:08 Method Of Arrival: Wheelchair ap3 07:08 Acuity: SADIE 3 ap3 Triage Assessment: 07:10 General: Appears uncomfortable, Behavior is calm, cooperative. Pain: Complains of pain ap3 in low back area. Neuro: Level of Consciousness is awake, alert, obeys commands, Oriented to person, place, time, situation, Gait is unsteady. Cardiovascular: Patient's skin is warm and dry. Respiratory: Airway is patent Respiratory effort is even, unlabored, Respiratory pattern is regular, symmetrical. : Reports pain in left flank(s). Musculoskeletal: Range of motion: low back/flank pain. Historical: - Allergies: 07:10 No Known Allergies; ap3 - PMHx: 07:10 High Cholesterol; Hypertension; ap3 - Immunization history:: Client reports receiving the 2nd dose of the Covid vaccine. - Social history:: Smoking status: Patient denies any tobacco usage or history of. - Family history:: not pertinent. - Hospitalizations: : No recent hospitalization is reported. Screenin:10 [facility] ED Fall Risk Assessment (Adult) Score/Fall Risk Level 0 - 2 = Low Risk. me1 07:11 Abuse screen: Denies threats or abuse. Nutritional screening: No deficits noted. ap3 Tuberculosis screening: No symptoms or risk factors identified. Assessment: 07:10 General: Appears uncomfortable, obese, well groomed, Behavior is calm, cooperative, me1 appropriate for age. Pain: Complains of pain in left lower flank pain Pain does not radiate. Pain currently is 9 out of 10 on a pain scale. Quality of pain is described as pressure, Pain began 2-3 days ago. Is continuous. Neuro: Level of Consciousness is awake, alert, obeys commands, Oriented to person, place, time, situation, Appropriate for age. Cardiovascular: Capillary refill < 3 seconds Patient's skin is warm and dry. Respiratory: Airway is patent Respiratory effort is even, unlabored, Respiratory pattern is regular, symmetrical. : Reports pain in left flank(s). 09:01 Reassessment: No changes from previously documented assessment. Patient and/or family ko1 updated on plan of care and expected duration. Pain level reassessed. Patient is alert, oriented x 3, equal unlabored respirations, skin warm/dry/pink. Vital Signs: 07:08 BP 175 / 66; Pulse 62; Resp 19; Temp 98.4; Pulse Ox 100% ; Weight 75.75 kg; Pain 9/10; ap3 07:39 BP 173 / 75; Pulse 66; Resp 19; Pulse Ox 99% ; ko1 08:01 BP 178 / 74; Pulse 68; Resp 18; Pulse Ox 100% ; ko1 08:59 BP 183 / 78; Pulse 66; Resp 18; Pulse Ox 99% ; ko1 09:40 BP 168 / 72; Pulse 72; Resp 18; Pulse Ox 99% ; ko1 10:32 BP 150 / 98; Pulse 68; Resp 18; Pulse Ox 99% ; ko1 07:08 Pain Scale: Adult ap3 ED Course: 06:24 Patient arrived in ED. ag3 06:58 Maynor Jane MD is Attending Physician. rn 07:03 Tennille Joe, QUIQUE is Primary Nurse. me1 07:10 Triage completed. ap3 07:10 Provided Education on: POC. Verbalized understanding. . me1 07:11 Patient has correct armband on for positive identification. Bed in low position. Call ap3 light in reach. Side rails up X2. Pulse ox on. NIBP on. 07:12 Arm band placed on right wrist. ap3 07:25 Inserted saline lock: 22 gauge in right antecubital area, using aseptic technique. ko1 Blood collected. 07:30 CBC with Diff Sent. ko1 07:30 CMP Sent. ko1 07:30 Lipase Sent. ko1 08:[address] via stretcher. ko1 08:10 CT Abd/Pelvis - IV Contrast Only In Process Unspecified. EDMS 08:30 Urinalysis w/ reflexes Sent. ko1 08:59 No provider procedures requiring assistance completed. ko1 10:56 Urinalysis w/ reflexes Sent. ss 11:52 IV discontinued, intact, bleeding controlled, No redness/swelling at site. Pressure ko1 dressing applied. Administered Medications: 07:34 Drug: Ondansetron IVP 4 mg Route: IVP; Site: right antecubital; ko1 07:38 Drug: morphine IVP or IV 2 mg Route: IVP; Infused Over: 4 mins; Site: right antecubital;ko1 11:20 Drug: Decadron - Dexamethasone IVP 10 mg Route: IVP; Site: right antecubital; ko1 11:25 Drug: Ketorolac IVP 15 mg Route: IVP; Site: right antecubital; ko1 Medication: 07:10 VIS not applicable for this client. me1 Outcome: 11:42 Discharge ordered by . rn 11:52 Discharged to home via wheelchair, with family. ko1 11:52 Condition: stable 11:52 Discharge instructions given to patient, family, Instructed on discharge instructions, follow up and referral plans. medication usage, Demonstrated understanding of instructions, follow-up care, medications, Prescriptions given X 2. 12:06 Patient left the ED. ko1 Signatures: Dispatcher [employer] EDMaynor Escobar MD MD rn Blanchard, Shelby, RN RN ss Prokisch, Amanda, RN RN marshall3 Shaylee Cox Kathy, RN RN ko1 Tennille Joe RN RN me1
[2023-01-21 12:32] VITALS: TEMP 98.4
[2023-01-21 12:36] VITALS: O2SAT 99
[2023-01-21 12:38] VITALS: BP 150/98
== END 2023-01-21 12:06 | disposition home or self-care (01) ==
LOC: ER 06:22
DX: M54.50 Low back pain, unspecified (principal); I10 Essential (primary) hypertension
CPT/HCPCS: 85025; 36415; 81003; 83690; 80053; 74177; Q9967; J1100; J2270; J2405; 96374; 96375; 99285

== ENCOUNTER 2023-09-22 15:13 | Emergency (ER) | payer OTHER ==
--- OUTSIDE RECORDS SUMMARY | 2023-09-22 15:17 | XMS REPORT | Continuity of Care Document ---
Author Name Unknown Address [address] [facility] [address] [facility] [address] [place] [address] [facility] Address [address] [facility] [address] [place] [address] Care Team Providers Care Pumper Gauger Name Role Phone Nathaniel Carroll Attending Clinician Unavail able Payers Payer Name Policy Type Policy Number Effective Date Expirati on Date Source Allergies, Adverse Reactions, Alerts Allergy Name Allergy Type Status Severity Reaction(s) Onset Date Inactive Date Treating Clinician Comments Source No Known Allergie s DA Active U 09-21 00:00: 00 [facility] are [facility] No Known Allergie s DA Active U 09-21 00:00: 00 [facility] are [facility] Encounters Start Date/Time End Date/Time Encounter Type Admission Type Attending Clinicians Care Facility Care Department Encounter ID Source 2020-09-21 12:55:39 Inpatient Nathaniel Carroll [facility] [id number] [facility] are [facility] Results Test Description Test Time Test Comments Results Result Co mments Source BASIC METABOLIC [id number] 10:35:00* Test Item Value Reference Range Interpretation Comme nts SODIUM (test code = NA) 142 mmol/L 135-145 N POTASSIUM (test code = K) 3.5 mmol/L 3.5-5.1 N CHLORIDE (test code = CL) 109 mmol/L 98-107 H CARBON DIOXIDE (test code = CO2) 29 mmol/L 21-32 N ANION GAP (test code = GAP) 7.5 2.0-16.0 N GLUCOSE (test code = GLU) 85 mg/dL 65-99 N BLOOD UREA NITROGEN (test code = BUN) 17 mg/dL 4-23 N GLOMERULAR FILTRATION RATE (test code = GFR) >=60 max estimate ml/min >60 The estimated glomerular filtration rate is computed usingpatient race, age (>18), sex, and serum creatinine. If anyof the needed data elements are missing the Laboratory cannot compute an estimation of the glomerular filtration rate. CREATININE (test code = CREAT) 0.9 mg/dL 0.6-1.5 N BUN/CREATININE RATIO (test code = BUN/CREA) 18.9 12.0-20.0 N CALCIUM (test code = CA) 8.4 mg/dL 8.5-10.1 L Notes Date/Time Note Provider Source 2020-09-25 10:18:00 [id number] [address] PATIENT NAME: EDU MORALEZ ADMIT DATE: 09/27/20ACCOUNT NO: [id number] ROOM NO: AGE: 80 REPORT TYPE: eELECTROCARDIOGRAM SEX: F ADMITTING PHYSICIAN: ATTENDING PHYSICIAN:Nathaniel Carroll MD Order:[id number] Reason : ANESTHESIA PRE OP Test Date/Time Stamp:FriSep 25 2020 10:18:02Blood Pressure : / mmHGVent. Rate : 085 BPM Atrial Rate : 085 BPM P-R Int : 130 ms QRS Dur : 072 ms QT Int : 378 ms P-R-T Axes : 002 091 020 degrees QTc Int : 449 ms Normal sinus rhythmRightward axisSeptal infarct , age undeterminedAbnormal ECGNo previous ECGs availableConfirmed by MD Kellie, Manuel ([id number]) on 09/28/2020 12:28:47 AM Referred By: Nathaniel Carroll Confirmed by:Manuel Hopkins MD at [address] [address] PATIENT NAME: EDU MORALEZ .[id number] for patient [id number] [facility]
[2023-09-22] MEDS ORDERED: NA CHLORIDE 0.9% 500 ML ONE (16:48)
[2023-09-22 16:50] LABS: Absolute Basophils 0.1 K/uL (0-0.5); Absolute Eosinophils 0.2 K/uL (0-0.5); Absolute Lymphocytes (CBC) 3.6 K/uL (0.7-4.9); Absolute Monocytes 1.3 K/uL (0.1-1.3); Eosinophils % 1.8 % (0-4.4); Lymphocytes % 39.6 % (15.3-44.8); MCH 31.5 pg (27.0-35.0); MCHC 33.3 g/dL (32.0-36.0); MCV 94.5 fL (80-100); MPV 8.8 fL (7.6-11.3); Neutrophils % 43.6 % (41.7-73.7); Nucleated Red Blood Cells % 0.1 % (0-0); Platelets 197 thou/uL (152-406); RBC Red Blood Cell Count 4.13 M/uL (3.86-4.86); Red Cell Distribution Width 13.6 % (12.1-15.2)
[2023-09-22 17:11] LABS: Albumin 2.7 g/dL (3.4-5.0); Albumin/Globulin Ratio 0.6 (1.1-1.8); Anion Gap 5.4 mEq/L (5.0-15.0); Bilirubin Total 0.4 mg/dL (0.2-1.0); Globulin 4.2 g/dL (2.3-3.5); Potassium 3.4 mEq/L (3.5-5.1); Protein, Total 6.9 g/dL (6.4-8.2)
[2023-09-22 17:22] LABS: Specific Gravity 1.014 (1.005-1.030); Urine Bilirubin NEGATIVE (Negative); Urine Blood Negative (Negative); Urine Clarity Clear (Clear); Urine Color Light-Yellow (Yellow); Urine Glucose NEGATIVE (Negative); Urine Ketones NEGATIVE (Negative); Urine Microscopic Reflex YN NO UMIC; Urine Nitrite NEGATIVE (Negative); Urine Protein NEGATIVE (Negative); Urine Urobilinogen Normal (Normal); Urine pH 5.5 (5.0-7.0)
--- NOTE | 2023-09-22 18:20 | RAD REPORT ---
EXAM DESCRIPTION: CT - Abdomen Pelvis W Contrast - 09/22/2023 5:29 pm CLINICAL HISTORY: ABD PAIN COMPARISON: Abdomen Pelvis W Contrast dated 01/21/2023; Abdomen Pelvis W Contrast dated 07/05/2021 ; Abdomen Pelvis W Contrast dated 01/23/2020; Abdomen Pelvis W Contrast dated 01/20/2020 TECHNIQUE: Thin cut axial CT imaging of the abdomen and pelvis was performed following intravenous a dministration of 100 mL Isovue 300. Multiplanar reformats were generated and reviewed. All CT scans are performed using dose optimization technique as appropriate and may include automated exposure control or mA/KV adjustment according to patient size. FINDINGS: No suspicious findings in the lung bases. The liver, spleen, adrenal glands, and pancreas show no suspicious findings. Gallbladder was surgical ly removed. Symmetric renal function is seen with no hydronephrosis or suspicious renal mass. Stable medial hyper dense left interpolar ovoid lesion measuring 1.3 cm. No dilated bowel loops or bowel wall thickening. No free air, free fluid or inflammatory stranding. S mall umbilical hernia containing fat. Colonic diverticulosis. No suspicious mass or bulky lymphadenop athy. The urinary bladder is without significant finding. No suspicious bony findings. Stable mild lower thoracic endplate compression deformities. IMPRESSION: No acute intra-abdominal process. Colonic diverticulosis without evidence of acute diverticulitis. Status post cholecystectomy. Stable left renal hyperdense 1.3 cm lesion, may represent a hemorrhagic cyst.
--- NOTE | 2023-09-22 19:53 | RAD REPORT ---
EXAM DESCRIPTION: RAD - Thoracic Spine Ap/Lat - 09/22/2023 7:24 pm CLINICAL HISTORY: PAIN COMPARISON: SPINE THORACICAP LAT dated 07/14/2009 TECHNIQUE: Thoracic spine, 2 views. FINDINGS: Thoracic vertebral bodies are normal in height. Stable mild dextroconvex curvature at the midthoracic spine. There are no acute or destructive bony processes see. No paraspinal masses are kristopher ntified. No disc space narrowing. Endplate remodeling at multiple levels with bridging osteophytes again seen. IMPRESSION: No acute osseus abnormality. Degenerative changes as above. .
--- NOTE | 2023-09-22 19:55 | RAD REPORT ---
EXAM DESCRIPTION: RAD - Lumbar Spine 3 Views - 09/22/2023 7:23 pm CLINICAL HISTORY: PAIN COMPARISON: No comparisons TECHNIQUE: Lumbar spine, 3 views. FINDINGS: Lumbar vertebral bodies are normal in height and alignment. No fracture or acute bony proc ess seen. Multilevel degenerative changes with mild disc height loss at L5-S1 and multilevel facet ar thropathy most pronounced at the lower lumbar levels. No other significant findings. IMPRESSION: No acute osseous abnormality. Degenerative changes as above.
--- NOTE | 2023-09-22 19:58 | EDPHYS ---
Physician Documentation [facility] Name: Jigna Horne Age: 83 yrs Sex: Female : 1940 Arrival Date: 09/22/2023 Time: 15:13 Bed 6 Private MD: ED Physician Maynor Jane HPI: 09/21 16:25 This 83 yrs old Female presents to ER via Wheelchair with complaints of Sent rn by . 16:25 The patient presents with abdominal pain in the left upper quadrant. Onset: The rn symptoms/episode began/occurred 3 day(s) ago. The symptoms do not radiate. Associated signs and symptoms: Pertinent positives: anorexia, constipation, Pertinent negatives: blood in stools, chest pain, fever. Modifying factors: The symptoms are alleviated by nothing, the symptoms are aggravated by nothing. The patient has experienced similar episodes in the past. Patient sent over by her PCP Dr. Alanis. Patient reports 3 days of upper abdominal pain and constipation. Patient with history of diverticulitis. Reports anorexia. No fever. No blood in stool.. Historical: - Allergies: 15:27 No Known Allergies; nj1 - PMHx: 15:27 Hypertension; High Cholesterol; nj1 - Immunization history:: Client reports receiving the 2nd dose of the Covid vaccine. - Infectious Disease History:: Denies. - Social history:: Smoking status: Patient denies any tobacco usage or history of. - Family history:: not pertinent. - Hospitalizations: : No recent hospitalization is reported. ROS: 16:25 Constitutional: Negative for fever, chills, and weight loss, Neck: Negative for injury, rn pain, and swelling, Cardiovascular: Negative for chest pain, palpitations, and edema, Respiratory: Negative for shortness of breath, cough, wheezing, and pleuritic chest pain, Abdomen/GI: Positive for abdominal pain and constipation Back: Negative for injury and pain, : Negative for injury, bleeding, discharge, and swelling, MS/Extremity: Negative for injury and deformity, Skin: Negative for injury, rash, and discoloration, Neuro: Positive for generalized weakness Exam: 16:25 Constitutional: This is a well developed, well nourished patient who is awake, alert, rn and in no acute distress. Cardiovascular: Regular rate and rhythm. No pulse deficits. Respiratory: No increased work of breathing, no retractions or nasal flaring. Abdomen/GI: Soft, mild left upper quadrant abdominal tenderness with guarding, no rebound or masses. Skin: Warm, dry MS/ Extremity: Pulses equal, no cyanosis Neuro: Awake and alert, GCS 15 Vital Signs: 15:26 BP 152 / 97; Pulse 74; Resp 17; Temp 97.8(O); Pulse Ox 94% ; Weight 76.2 kg; Height 5 nj1 ft. 0 in. ; 16:57 BP 150 / 100; Pulse 67; Resp 18; Pulse Ox 100% on R/A; Pain 8/10; ld1 17:37 BP 182 / 87; ld1 18:54 BP 179 / 75; Pulse 58; Resp 18; Pulse Ox 93% on R/A; ld1 20:22 BP 163 / 96; Pulse 76; Resp 17; Temp 98; Pulse Ox 96% on R/A; rv 15:26 Body Mass Index 32.81 (76.20 kg, 152.4 cm) nj1 16:57 Pain Scale: Adult ld1 [place] Coma Score: 20:22 Eye Response: spontaneous(4). Motor Response: obeys commands(6). Verbal Response: rv oriented(5). Total: 15. MDM: 15:23 Patient medically screened. rn 18:33 Management of patient was discussed with the following: Primary Care Provider: av Discussed results with Dr Alanis. Would like lumbar spine and thoracic spine x-rays, if normal discharge home to follow up with him in office. . 19:56 Differential diagnosis: diverticulitis, constipation, nonspecific abd pain. Data av reviewed: vital signs, nurses notes. Counseling: I had a detailed discussion with the patient and/or guardian regarding the historical points, exam findings, and any diagnostic results supporting the discharge/admit diagnosis, lab results, radiology results, the need for outpatient follow up, a family practitioner, to return to the emergency department if symptoms worsen or persist or if there are any questions or concerns that arise at home. 09/21 15:23 Order name: CBC with Diff; Complete Time: 16:52 rn 09/21 15:23 Order name: CMP; Complete Time: 17:22 rn 09/21 15:23 Order name: Lipase; Complete Time: 17:22 rn 09/21 15:23 Order name: Urinalysis w/ reflexes; Complete Time: 17:22 rn 09/21 15:23 Order name: CT Abd/Pelvis - IV Contrast Only; Complete Time: 18:24 rn 09/21 18:32 Order name: XRAY Lumbar Spine (3 Views); Complete Time: 19:56 kb 09/21 18:33 Order name: XRAY Thoracic Spine (Ap/lat); Complete Time: 19:56 kb 09/21 15:23 Order name: IV Saline Lock; Complete Time: 16:39 rn 09/21 15:23 Order name: Labs collected and sent; Complete Time: 16:39 rn Administered Medications: 16:57 Drug: NS 0.9% IV 500 ml IV at bolus once Route: IV; Rate: bolus; Site: left antecubital;ld1 20:22 Follow up: IV Status: Completed infusion; IV Intake: 500ml rv 20:21 Drug: Methocarbamol PO 500 mg PO once Route: PO; rv 20:22 Follow up: Response: Medication administered at discharge. rv Disposition: 09/22 07:01 Co-signature as Attending Physician, Maynor Jane MD I reviewed the patient's care rn provided by the Advanced Practice Provider and agree with the diagnosis and treatment plan. Disposition Summary: 09/22/23 19:57 Discharge Ordered Notes: Location: Home kb Condition: Stable kb Diagnosis - Abdominal pain, Generalized kb Followup: kb - With: Emergency Department - When: As needed - Reason: Worsening of condition Followup: kb - With: Private Physician - When: 2 - 3 days - Reason: Recheck today's complaints, Continuance of care, Re-evaluation by your physician Discharge Instructions: - Discharge Summary Sheet kb - Abdominal Pain, Adult, [id number] kb Forms: - Medication Reconciliation Form kb - Thank You Letter kb - Antibiotic Education kb - Prescription Opioid Use kb - Patient Portal Instructions kb - Leadership Thank You Letter kb Prescriptions: - omeprazole 40 mg Oral capsule,delayed release (e.c.) - take 1 capsule ORAL route daily; 30 capsule; Refills: 0, Product Selection kb Permitted - methocarbamol 500 mg Oral tablet - take 1 tablet ORAL route every 12 hours As needed; 14 tablet; Refills: 0, kb Product Selection Permitted Signatures: Dispatcher [employer] Kera Patel FNP-C FNP-Maynor Alonso MD MD rn Vicente, Ronaldo, RN RN rv Sims, Lauren, RN RN ld1 Vane Barrett RN RN nj1 Corrections: (The following items were deleted from the chart) 09/21 18:33 18:33 Lumbar Spine 3 Views+RAD.RAD.BRZ ordered. EDMS EDMS
--- NOTE | 2023-09-22 19:58 | ER ---
Nurse's Notes [facility] Name: Jigna Horne Age: 83 yrs Sex: Female : 1940 Arrival Date: 09/22/2023 Time: 15:13 Bed 6 Private MD: Diagnosis: Abdominal pain, Generalized Presentation: 09/21 15:26 Coronavirus screen: Vaccine status: Patient reports receiving the 2nd dose of the covid nj1 vaccine. Ebola Screen: Patient denies travel to an Ebola-affected area in the 21 days before illness onset. Initial Sepsis Screen: Does the patient meet any 2 criteria? No. Patient's initial sepsis screen is negative. Does the patient have a suspected source of infection? No. Patient's initial sepsis screen is negative. Risk Assessment: Do you want to hurt yourself or someone else? Patient reports no desire to harm self or others. Onset of symptoms was September 19, 2023. 15:26 Method Of Arrival: Wheelchair nj 15:26 Acuity: SADIE 3 nj1 15:28 Chief complaint: Parent and/or Guardian states: Seen by Dr Alanis, sent her over for [facility] further evaluation and treatment, concerned it may be diverticulitis. Pt has not had a bm since friday. Triage Assessment: 15:28 General: Appears in no apparent distress. uncomfortable, Behavior is calm, cooperative, nj1 appropriate for age. Pain: Complains of pain in back and abdomen. GI: Reports constipation. Historical: - Allergies: 15:27 No Known Allergies; nj1 - PMHx: 15:27 Hypertension; High Cholesterol; nj1 - Immunization history:: Client reports receiving the 2nd dose of the Covid vaccine. - Infectious Disease History:: Denies. - Social history:: Smoking status: Patient denies any tobacco usage or history of. - Family history:: not pertinent. - Hospitalizations: : No recent hospitalization is reported. Screenin:57 [facility] ED Fall Risk Assessment (Adult) History of falling in the last 3 months, ld1 including since admission No falls in past 3 months (0 pts). Abuse screen: Denies threats or abuse. Denies injuries from another. Nutritional screening: No deficits noted. Tuberculosis screening: No symptoms or risk factors identified. Assessment: 16:57 General: Appears in no apparent distress. comfortable, Behavior is calm, cooperative, ld1 appropriate for age. Pain: Complains of pain in back and abdomen Pain does not radiate. Pain currently is 8 out of 10 on a pain scale. Quality of pain is described as sharp, Pain began 2-3 days ago. Is continuous. Neuro: Level of Consciousness is awake, alert, obeys commands, Oriented to person, place, time, situation, Appropriate for age. Cardiovascular: Capillary refill < 3 seconds Patient's skin is warm and dry. Respiratory: Airway is patent Respiratory effort is even, unlabored. GI: Abdomen is round non-distended, Reports lower abdominal pain, upper abdominal pain, constipation. : No signs and/or symptoms were reported regarding the genitourinary system. EENT: No signs and/or symptoms were reported regarding the EENT system. Derm: No signs and/or symptoms reported regarding the dermatologic system. Musculoskeletal: No signs and/or symptoms reported regarding the musculoskeletal system. 17:44 Reassessment: Placed patient to [facility]. ld1 18:54 Reassessment: Patient appears in no apparent distress at this time. No changes from ld1 previously documented assessment. Patient and/or family updated on plan of care and expected duration. Pain level reassessed. Patient is alert, oriented x 3, equal unlabored respirations, skin warm/dry/pink. 19:10 Reassessment: ASSUMED CARE OF PT. PT LYING IN BED. XRAY AT BEDSIDE TO TAKE PT FOR jj7 IMAGING. PURE WIRCK DISCONNECTED. PT PLACED IN GOWN. VS STABLE. Vital Signs: 15:26 BP 152 / 97; Pulse 74; Resp 17; Temp 97.8(O); Pulse Ox 94% ; Weight 76.2 kg; Height 5 nj1 ft. 0 in. ; 16:57 BP 150 / 100; Pulse 67; Resp 18; Pulse Ox 100% on R/A; Pain 8/10; ld1 17:37 BP 182 / 87; ld1 18:54 BP 179 / 75; Pulse 58; Resp 18; Pulse Ox 93% on R/A; ld1 20:22 BP 163 / 96; Pulse 76; Resp 17; Temp 98; Pulse Ox 96% on R/A; rv 15:26 Body Mass Index 32.81 (76.20 kg, 152.4 cm) nj1 16:57 Pain Scale: Adult ld1 [place] Coma Score: 20:22 Eye Response: spontaneous(4). Motor Response: obeys commands(6). Verbal Response: rv oriented(5). Total: 15. ED Course: 15:20 Patient arrived in ED. im 15:23 Maynor Jane MD is Attending Physician. rn 15:27 Radiology exam delayed due to IV insertion attempt and/or patient not having nj appropriate IV at this time. 15:27 Radiology exam delayed due to lab results not completed at this time. (BUN/Creatinine). nj 15:27 Triage completed. nj1 15:27 Arm band placed on left wrist. nj1 16:33 Urinalysis w/ reflexes Sent. em1 16:34 Missed attempt(s): 20 gauge in left antecubital area. em1 16:39 CBC with Diff Sent. em1 16:39 CMP Sent. em1 16:39 Lipase Sent. em1 16:39 Initial lab(s) drawn, by me, sent to lab. Inserted saline lock: 22 gauge in left em1 antecubital area, using aseptic technique. Blood collected. 16:52 Yung John, RN is Primary Nurse. rs5 16:57 Patient has correct armband on for positive identification. Placed in gown. Bed in low ld1 position. Call light in reach. Side rails up X2. wool sacker on. Pulse ox on. NIBP on. Door closed. Noise minimized. Warm blanket given. 16:57 No provider procedures requiring assistance completed. ld1 17:30 CT Abd/Pelvis - IV Contrast Only In Process Unspecified. EDMS 17:45 Cleaned of incontinence. ld1 18:01 Kera Ocampo FNP-C is PHCP. kb 19:10 Placed in gown. jj7 19:25 XRAY Lumbar Spine (3 Views) In Process Unspecified. EDMS 19:25 XRAY Thoracic Spine (Ap/lat) In Process Unspecified. EDMS 20:23 IV discontinued, intact, bleeding controlled, No redness/swelling at site. Pressure rv dressing applied. Administered Medications: 16:57 Drug: NS 0.9% IV 500 ml IV at bolus once Route: IV; Rate: bolus; Site: left antecubital;ld1 20:22 Follow up: IV Status: Completed infusion; IV Intake: 500ml rv 20:21 Drug: Methocarbamol PO 500 mg PO once Route: PO; rv 20:22 Follow up: Response: Medication administered at discharge. rv Medication: 16:57 VIS not applicable for this client. ld1 Intake: 20:22 IV: 500ml; Total: 500ml. rv Output: 19:10 Urine: 900ml (Voided); Total: 900ml. jj7 Outcome: 19:57 Discharge ordered by MD. kb 20:23 Discharged to home via wheelchair, with family, rv 20:23 Condition: good 20:23 Discharge instructions given to patient, family, Instructed on discharge instructions, follow up and referral plans. medication usage, Demonstrated understanding of instructions, follow-up care, medications, Prescriptions given X 2, 20:23 Patient left the ED. rv Signatures: Dispatcher [employer] EDMS Kera Ocampo, MAINSPRING STRIP INSPECTOR-C MAINSPRING STRIP INSPECTOR-Ckb Maynor Jane MD MD rn Martinez, Eric emCheng Varner Ronaldo, RN RN rv Yuliana Roy RN RN ld1 Juju Bustos RN RN jj7 Yung John RN RN rs5 Vane Barrett RN RN nj1 Mónica Alarcon im
[2023-09-22] MEDS ORDERED: methocarbamoL 500 MG TAB ONE (20:17)
[2023-09-23 01:45] VITALS: BP 163/96; TEMP 98; O2SAT 96
== END 2023-09-22 20:23 | disposition home or self-care (01) ==
LOC: ER 15:13
DX: R10.84 Generalized abdominal pain (principal); R53.1 Weakness; R63.0 Anorexia; I10 Essential (primary) hypertension
CPT/HCPCS: 96361; 85025; 36415; 81003; 83690; 80053; 74177; 72100; 72070; 96360; 99285; Q9967; J7040

== ENCOUNTER 2024-02-16 16:01 | Observation (INO) | payer OTHER ==
--- OUTSIDE RECORDS SUMMARY | 2024-02-16 16:04 | XMS REPORT | Continuity of Care Document ---
Author Name Unknown Address [address] [facility] [address] [place] [address] [facility] Address [address] [facility] [address] [place] [address] Care Team Providers Care Vp [employer] Name Role Phone Nathaniel Carroll Attending Clinician Unavail able Payers Payer Name Policy Type Policy Number Effective Date Expirati on Date Source Allergies, Adverse Reactions, Alerts Allergy Name Allergy Type Status Severity Reaction(s) Onset Date Inactive Date Treating Clinician Comments Source No Known Allergie s DA Active U 09-21 00:00: 00 [facility] [place] No Known Allergie s DA Active U 09-21 00:00: 00 [facility] [place] Encounters Start Date/Time End Date/Time Encounter Type Admission Type Attending Clinicians Care Facility Care Department Encounter ID Source 2020-09-21 12:55:39 Inpatient Nathaniel Carroll [facility] [id number] 48 [facility] [place] Results Test Description Test Time Test Comments Results Result Co mments Source BASIC METABOLIC [id number] 10:35:00* Test Item Value Reference Range Interpretation [...] Notes Date/Time Note Provider Source 2020-09-25 10:18:00 [id number] [address] PATIENT NAME: EDU MORALEZ ADMIT DATE: 09/27/20 ACCOUNT NO: [id number] ROOM NO: AGE: 80 REPORT TYPE: eELECTROCARDIOGRAM SEX: F ADMITTING PHYSICIAN: ATTENDING PHYSICIAN:Nathainel Carroll MD Order: [id number] Test Reason : ANESTHESIA PRE OP Test [...] No previous ECGs available Confirmed by MD Kellie, Manuel ([id number]) on 09/28/2020 12:28:47 AM Referred By: Nathaniel Carroll Confirmed by:Manuel Hopkins MD at [id number] [facility] [id number] PATIENT NAME: EDU MORALEZ [facility]
[2024-02-16] MEDS ORDERED: ASPIRIN 81 MG CHEWABLE TABLET ONE (16:30)
[2024-02-16] MEDS ORDERED: NITROGLYCERIN 0.4 MG/TAB SL ONE (16:30)
[2024-02-16 16:42] LABS: Absolute Basophils 0.1 K/uL (0-0.5); Absolute Eosinophils 0.2 K/uL (0-0.5); Absolute Lymphocytes (CBC) 3.1 K/uL (0.7-4.9); Absolute Monocytes 1.6 K/uL (0.1-1.3); Absolute Neutrophil 4.3 K/uL (1.8-8.0); Basophils % 0.6 % (0-1.3); Eosinophils % 2.4 % (0-4.4); Hematocrit 43.9 % (36.0-45.0); Lymphocytes % 33.8 % (15.3-44.8); MCH 30.7 pg (27.0-35.0); MCV 95.9 fL (80-100); MPV 8.9 fL (7.6-11.3); Monocytes % 16.8 % (3.3-12.3); Neutrophils % 46.4 % (41.7-73.7); Platelets 209 thou/uL (152-406); RBC Red Blood Cell Count 4.58 M/uL (3.86-4.86); Red Cell Distribution Width 13.9 % (12.1-15.2)
--- NOTE | 2024-02-16 16:54 | RAD REPORT ---
EXAM DESCRIPTION: Josiah Single View02/16/2024 4:34 pm CLINICAL HISTORY: Chest pain COMPARISON: 2021 FINDINGS: Areas of subsegmental atelectasis right lung. Left lung appears clear. Heart is mildly to moderately enlarged
[2024-02-16 16:59] LABS: Albumin 2.9 g/dL (3.4-5.0); Albumin/Globulin Ratio 0.7 (1.1-1.8); Anion Gap 5.3 mEq/L (5.0-15.0); Bilirubin Direct 0.2 mg/dL (0-0.2); Bilirubin Indirect, Calculated 0.5 mg/dL (0.2-0.8); Bilirubin Total 0.7 mg/dL (0.2-1.0); Globulin 4.2 g/dL (2.3-3.5); Potassium 3.3 mEq/L (3.5-5.1); Protein, Total 7.1 g/dL (6.4-8.2); Troponin High Sensitivity 19.9 pg/mL (<58.9)
--- NOTE | 2024-02-16 17:13 | ER ---
Nurse's Notes [facility] Name: Jigna Horne Age: 83 yrs Sex: Female : 1940 Arrival Date: 02/16/2024 Time: 16:01 Bed 3 Private MD: Diagnosis: Chest pain, unspecified Presentation: 02/15 16:27 Chief complaint: Patient states: Chest pain to the center of her chest that she cm10 describes as sharp onset Friday. Pt also reports shortness of breath. Coronavirus screen: Client denies travel out of the [place] in the last 14 days. At this time, the client does not indicate any symptoms associated with coronavirus-19. Ebola Screen: Patient denies travel to an Ebola-affected area in the 21 days before illness onset. No symptoms or risks identified at this time. Initial Sepsis Screen: Does the patient meet any 2 criteria? RR > 20 per min. Does the patient have a suspected source of infection? No. Patient's initial sepsis screen is negative. Risk Assessment: Do you want to hurt yourself or someone else? Patient reports no desire to harm self or others. Onset of symptoms was February 16, 2024. 16:27 Method Of Arrival: Wheelchair cm10 16:27 Acuity: SADIE 2 cm10 Triage Assessment: 16:29 General: Appears in no apparent distress. uncomfortable, Behavior is calm, cooperative. cm10 Neuro: No deficits noted. Level of Consciousness is awake, alert, obeys commands, Oriented to person, place, time, situation, Appropriate for age. Historical: - Allergies: 16:28 No Known Allergies; cm10 - PMHx: 16:28 High Cholesterol; Hypertension; cm10 - Immunization history:: Adult Immunizations up to date. - Infectious Disease History:: Denies. - Family history:: not pertinent. - Social history:: Smoking status: Patient denies any tobacco usage or history of. Screenin:15 [facility] ED Fall Risk Assessment (Adult) History of falling in the last 3 months, rs5 including since admission No falls in past 3 months (0 pts) Confusion or Disorientation No (0 pts) Intoxicated or Sedated No (0 pts) Impaired Gait Yes (1 pt) Mobility Assist Device Used Yes (1 pt) Altered Elimination No (0 pt) Score/Fall Risk Level 0 - 2 = Low Risk Oriented to surroundings, Maintained a safe environment. Abuse screen: Denies threats or abuse. Nutritional screening: No deficits noted. Tuberculosis screening: No symptoms or risk factors identified. Assessment: 16:15 General: Appears in no apparent distress. uncomfortable, Behavior is calm, cooperative. rs5 Pain: Complains of pain in chest Pain does not radiate. Pain currently is 8 out of 10 on a pain scale. Quality of pain is described as aching, Pain began Is continuous. Neuro: Level of Consciousness is awake, alert, obeys commands, Oriented to person, place, time, situation. Cardiovascular: Patient's skin is warm and dry. Respiratory: Airway is patent Respiratory effort is even, unlabored, Respiratory pattern is regular, symmetrical. GI: Abdomen is round non-distended, Abd is soft and non tender X 4 quads. : No signs and/or symptoms were reported regarding the genitourinary system. EENT: No signs and/or symptoms were reported regarding the EENT system. Derm: Skin is intact, Skin is pink, warm \\T\\ dry. Musculoskeletal: Range of motion: intact in all extremities. 16:35 Reassessment: to bedside for med adm, 3 tablets nitro 0.4 mg adm sublingual Q5 min per rs5 MD orders, . 16:35 Reassessment: Patient and/or family updated on plan of care and expected duration. Pain rs5 level reassessed. Patient is alert, oriented x 3, equal unlabored respirations, skin warm/dry/pink. Pain: Denies pain. 17:56 Reassessment: Patient and/or family updated on plan of care and expected duration. Pain rs5 level reassessed. Patient is alert, oriented x 3, equal unlabored respirations, skin warm/dry/pink. Patient denies pain at this time. Patient states feeling better. 19:11 Reassessment: Patient appears in no apparent distress at this time. Patient and/or bm8 family updated on plan of care and expected duration. Pain level reassessed. Patient is alert, oriented x 3, equal unlabored respirations, skin warm/dry/pink. Patient denies pain at this time. Patient states feeling better. Cardiovascular: Denies chest pain, Capillary refill < 3 seconds Patient's skin is warm and dry. Respiratory: Airway is patent Respiratory effort is even, unlabored, Respiratory pattern is regular, symmetrical. Vital Signs: 16:27 BP 164 / 74; Pulse 83; Resp 22; Temp 97.3; Pulse Ox 96% on R/A; Weight 75.75 kg; Height cm10 5 ft. 0 in. ; Pain 8/10; 16:35 BP 145 / 61; Pulse 77; Resp 17; Pulse Ox 97% on R/A; rs5 16:50 BP 141 / 65; Pulse 80; Resp 17; Pulse Ox 98% on R/A; rs5 17:57 BP 145 / 66; Pulse 75; Resp 17; Pulse Ox 98% on R/A; rs5 19:11 BP 153 / 65; Pulse 76; Resp 24; Temp 98.6; Pulse Ox 94% ; Pain 0/10; bm8 16:27 Body Mass Index 32.61 (75.75 kg, 152.4 cm) cm10 16:27 Pain Scale: Adult cm10 19:11 Pain Scale: Adult bm8 [place] Coma Score: 19:11 Eye Response: spontaneous(4). Motor Response: obeys commands(6). Verbal Response: bm8 oriented(5). Total: 15. ED Course: 16:07 Patient arrived in ED. jj6 16:10 Nehemiah Starks MD is Attending Physician. rt 16:15 Patient has correct armband on for positive identification. Placed in gown. Bed in low rs5 position. Call light in reach. Side rails up X2. Client placed on continuous cardiac and pulse oximetry monitoring. NIBP monitoring applied. biomedical photographer on. Pulse ox on. 16:15 No provider procedures requiring assistance completed. rs5 16:20 Yung John, RN is Primary Nurse. rs5 16:28 Triage completed. cm10 16:29 Arm band placed on Patient placed in an exam room, on a stretcher, on document control assistant, cm10 on pulse oximetry. EKG completed in triage. Results shown to MD. 16:29 EKG done, by ED staff, reviewed by Nehemiah Starks MD. cm10 16:36 XRAY Chest (1 view) In Process Unspecified. EDMS 17:11 César Alanis MD is Hospitalizing Provider. rt 18:01 1801 CM met with patient and kt Lobo at the bedside in the ED exam room. ane Patient identified by name and . Demographic sheet confirmed. Maddy states Ms Horne lives with her son in a single story home, and prior to admission, she performs ADLs independently using a walker only when she does not feel well. She has a walk-in shower with tooth cutter contact wheel bars and no other DME. No HH, home oxygen or other medical services at this time. No MPOA in place at this time. The preferred plan is to return home and Haroldo expressed a desire to request "some sort of home health" so that "someone could check on her". CM recommended discussing with Dr. Alanis. Yamil states 's daughter Kyle will be her transportation home upon discharge. CM team will continue to follow and coordinate care. 19:11 Provided Education on: need for admission. bm8 19:11 Inserted saline lock: 22 gauge in right antecubital area, using aseptic technique. bm8 Blood collected. Flushed with 10 mL NS. Inserted iv placed by previous nurse Patient admitted, IV remains in place. Patient maintains SpO2 saturation greater than 95% on room air. 19:45 Cleaned of incontinence. bm8 Administered Medications: 16:25 Drug: Aspirin PO Chewable Tablet 243 mg PO once; 81 mg tablets x 3 Route: PO; rs5 17:33 Follow up: Response: No adverse reaction rs5 16:25 Drug: Nitroglycerin Sublingual 0.4 mg Sublingual once; every five minute if needed x3 rs5 Route: Sublingual; 16:30 Drug: Nitroglycerin Sublingual 0.4 mg Sublingual once; every five minute if needed x3 rs5 Route: Sublingual; 16:40 Drug: Nitroglycerin Sublingual 0.4 mg Sublingual once; every five minute if needed x3 rs5 Route: Sublingual; 19:15 Follow up: Response: No adverse reaction bm8 Medication: 17:08 VIS not applicable for this client. rs5 Outcome: 17:12 Decision to Hospitalize by Provider. rt 19:11 Admitted to Tele accompanied by nurse, via stretcher, room 421, bm8 19:11 Condition: stable 19:11 Instructed on the need for admit, Demonstrated understanding of instructions, follow-up care, medications, 19:46 Patient left the ED. bm8 Signatures: Dispatcher [employer] EDMS Tiffanie Ahuja6 Nehemiah Starks MD MD rt Yung John, RN RN rs5 Saundra Linder, RN RN cm10 Charles Cortez, RN RN bm8 Chanelle Mullen, RN RN ane
--- NOTE | 2024-02-16 17:13 | EDPHYS ---
Physician Documentation [facility] Name: Jigna Horne Age: 83 yrs Sex: Female : 1940 Arrival Date: 02/16/2024 Time: 16:01 Bed 3 Private MD: ED Physician Nehemiah Starks HPI: 02/15 16:28 This 83 yrs old Female presents to ER via Unassigned with complaints of Chest rt Pain. 16:28 Patient presents to the ED with intermittent chest pain, shortness of breath starting rt yesterday. States that it is worse with exertion. Has associated dizziness but denies other acute complaints at this time. Symptoms are moderate in severity, no other aggravating or alleviating factors.. Historical: - Allergies: 16:28 No Known Allergies; cm10 - PMHx: 16:28 High Cholesterol; Hypertension; cm10 - Immunization history:: Adult Immunizations up to date. - Infectious Disease History:: Denies. - Family history:: not pertinent. - Social history:: Smoking status: Patient denies any tobacco usage or history of. ROS: 16:28 Constitutional: Negative for fever, chills, and weight loss, Abdomen/GI: Negative for rt abdominal pain, nausea, vomiting, diarrhea, and constipation, MS/Extremity: Negative for injury and deformity, Skin: Negative for injury, rash, and discoloration, 16:28 Cardiovascular: Positive for chest pain, Negative for edema, 16:28 Respiratory: Positive for shortness of breath, Negative for cough, 16:28 Neuro: Positive for dizziness, Negative for loss of consciousness, Exam: 16:28 Constitutional: This is a well developed, well nourished patient who is awake, alert, rt and in no acute distress. Head/Face: Normocephalic, atraumatic. Chest/axilla: Normal chest wall appearance and motion. Nontender with no deformity. No lesions are appreciated. Cardiovascular: Regular rate and rhythm with a normal S1 and S2. No gallops, murmurs, or rubs. Normal PMI, no JVD. No pulse deficits. Respiratory: Lungs have equal breath sounds bilaterally, clear to auscultation and percussion. No rales, rhonchi or wheezes noted. No increased work of breathing, no retractions or nasal flaring. Abdomen/GI: Soft, non-tender, with normal bowel sounds. No distension or tympany. No guarding or rebound. No evidence of tenderness throughout. Skin: Warm, dry with normal turgor. Normal color with no rashes, no lesions, and no evidence of cellulitis. MS/ Extremity: Pulses equal, no cyanosis. Neurovascular intact. Full, normal range of motion. Neuro: Awake and alert, GCS 15, oriented to person, place, time, and situation. Cranial nerves II-XII grossly intact. Motor strength 5/5 in all extremities. Sensory grossly intact. Cerebellar exam normal. Normal gait. 16:28 ECG was reviewed by the Attending Physician. Vital Signs: 16:27 BP 164 / 74; Pulse 83; Resp 22; Temp 97.3; Pulse Ox 96% on R/A; Weight 75.75 kg; Height cm10 5 ft. 0 in. ; Pain 8/10; 16:35 BP 145 / 61; Pulse 77; Resp 17; Pulse Ox 97% on R/A; rs5 16:50 BP 141 / 65; Pulse 80; Resp 17; Pulse Ox 98% on R/A; rs5 17:57 BP 145 / 66; Pulse 75; Resp 17; Pulse Ox 98% on R/A; rs5 19:11 BP 153 / 65; Pulse 76; Resp 24; Temp 98.6; Pulse Ox 94% ; Pain 0/10; bm8 16:27 Body Mass Index 32.61 (75.75 kg, 152.4 cm) cm10 16:27 Pain Scale: Adult cm10 19:11 Pain Scale: Adult bm8 Speedy Coma Score: 19:11 Eye Response: spontaneous(4). Motor Response: obeys commands(6). Verbal Response: bm8 oriented(5). Total: 15. MDM: 16:14 Patient medically screened. rt 17:12 Differential diagnosis: abnormal EKG, acute myocardial infarction, coronary artery rt disease congestive heart failure pneumonia, pneumothorax. HEART Score: History: Highly Suspicious (2), ECG: Non specific repolarization disturbance / LBTB / PM (1), Age: > or = 65 years (2), Risk Factors: > or = 3 Risk factors for atherosclerotic disease (2), Troponin: < or = 1 x Normal Limit (0), Total Score = 7. The patient was given aspirin in the Emergency Department. Data reviewed: vital signs, lab test result(s), EKG, radiologic studies. Consideration of Admission/Observation Patient was admitted/placed on observation. Management of patient was discussed with the following: Primary Care Provider: Agrees to admit. I considered the following discharge prescriptions or medication management in the emergency department Medications were administered in the Emergency Department. See MAR. Independent interpretation of the following test(s) in the Emergency Department X-Ray: My interpretation is No infiltrate seen on interpretation of x-ray images. Test considered but Not performed: CT: Low suspicion for pulmonary embolism, CT angiogram not indicated. Care significantly affected by the following chronic conditions: Hypertension, Congestive Heart Failure. Counseling: I had a detailed discussion with the patient and/or guardian regarding the historical points, exam findings, and any diagnostic results supporting the discharge/admit diagnosis, lab results, radiology results, the need for further work-up and treatment in the hospital. Response to treatment: the patient's symptoms have resolved after treatment, the patient's pain is gone. 02/15 16:23 Order name: Basic Metabolic Panel; Complete Time: 17:03 rt 02/15 16:23 Order name: CBC with Diff; Complete Time: 17:03 rt 02/15 16:23 Order name: LFT's; Complete Time: 17:03 rt 02/15 16:23 Order name: Magnesium; Complete Time: 17:03 rt 02/15 16:23 Order name: NT PRO-BNP; Complete Time: 17:03 rt 02/15 16:23 Order name: Troponin HS; Complete Time: 17:03 rt 02/15 16:23 Order name: XRAY Chest (1 view); Complete Time: 16:55 rt 02/15 16:23 Order name: EKG; Complete Time: 16:23 rt 02/15 17:21 Order name: CONS Physician Consult EDMS 02/15 16:23 Order name: Cardiac monitoring; Complete Time: 17:01 rt 02/15 16:23 Order name: EKG - Nurse/Tech; Complete Time: 17:01 rt 02/15 16:23 Order name: IV Saline Lock; Complete Time: 17:01 rt 02/15 16:23 Order name: Labs collected and sent; Complete Time: 17:01 rt 02/15 16:23 Order name: O2 Per Protocol; Complete Time: 17: rt 02/15 16:23 Order name: O2 Sat Monitoring; Complete Time: 17:01 rt EC:28 Rate is 76 beats/min. Rhythm is regular, Normal Sinus Rhythm with No ectopy. QRS [place] rt is Normal. NE interval is normal. QRS interval is normal. QT interval is normal. No Q waves. No ST changes noted. Interpreted by me. Administered Medications: 16:25 Drug: Aspirin PO Chewable Tablet 243 mg PO once; 81 mg tablets x 3 Route: PO; rs5 17:33 Follow up: Response: No adverse reaction rs5 16:25 Drug: Nitroglycerin Sublingual 0.4 mg Sublingual once; every five minute if needed x3 rs5 Route: Sublingual; 16:30 Drug: Nitroglycerin Sublingual 0.4 mg Sublingual once; every five minute if needed x3 rs5 Route: Sublingual; 16:40 Drug: Nitroglycerin Sublingual 0.4 mg Sublingual once; every five minute if needed x3 rs5 Route: Sublingual; 19:15 Follow up: Response: No adverse reaction bm8 Disposition Summary: 02/16/24 17:12 Hospitalization Ordered Notes: Hospitalization Status: Observation rt Provider: César Alanis rt Condition: Stable rt Problem: new rt Symptoms: have improved rt Bed/Room Type: Standard rt Location: Telemetry/MedSurg (observation)(02/16/24 18:47) bd Room Assignment: 421(02/16/24 18:47) bd Diagnosis - Chest pain, unspecified rt Forms: - Medication Reconciliation Form rt - SBAR form rt - Leadership Thank You Letter rt Signatures: Dispatcher [employer] EDGloria Hidalgo bd Nehemiah Starks MD MD rt Yung John RN RN rs5 Saundra Linder RN RN cm10 Charles Cortez RN bm8 Corrections: (The following items were deleted from the chart) 18:29 17:12 Telemetry/MedSurg (observation) rt bd 18:29 17:12 rt bd 18:47 18:[address] [facility] ER HOLD bd bd 18:47 18:29 ERHOLD- bd bd
[2024-02-16] MEDS: GABAPENTIN 300 MG CAP PO SCH (21:28)
[2024-02-16] MEDS: HYDRALAZINE HCL 25 MG TABLET PO SCH (21:29)
[2024-02-16 22:20] VITALS: O2SAT 93
--- NOTE | 2024-02-16 23:18 | HP ---
Date of Admission: 02/16/2024 Chief Complaint: Neck pain and chest pain. History Of Present Illness: This is an 83-year-old pleasant female patient, who called my office tomitchel lisa with above-mentioned complaints and she was asked to come to emergency room and after she was eval uated in ER, she was admitted to hospital. I saw her in the emergency room this evening and she repo rts having neck pain in the left posterolateral aspect of the neck for last 4 days or so. Pain is in termittent. No fall or injury lately. She is also reporting having chest pain in the left upper ant erior chest wall area and this is not necessarily related to neck pain. Sometimes she has chest pain with activity and some time at rest and her chest pain lasts for few minutes. She gets little short of breath with chest pain, but no sweating or nausea or vomiting. After she was evaluated in ER, nadia yates was admitted to the hospital. When I saw her, she was asymptomatic. Allergies: NO KNOWN ALLERGIES. Medications: Aspirin 81 mg daily, vitamin D3 2000 units daily, furosemide 40 mg daily, gabapentin 30 0 mg at bedtime, hydralazine 50 mg 2 times a day, leflunomide 20 mg daily, losartan 50 mg 2 times a d ay, prednisone 5 mg daily, and she also takes amlodipine 5 mg daily. Review of Systems: Musculoskeletal: As mentioned above. Cardiovascular: As mentioned above. All other systems reviewed and negative. 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 Past Surgical History: Cataract surgery, hernia repair on September 27, 2020, cholecystectomy, hysterect sheri, and left knee surgery. Family History: Father , had asthma and hypertension. Mother , had hypertension. Brother d ied, had liver cancer. Sister had pancreatic cancer. Social History: Negative for smoking and alcohol use. Physical Examination: Vital Signs: Height 4 feet inches, weight pounds, temperature , puls e , blood pressure , respiratory rate , oxygen saturation . General: Awake, alert, oriented, not in distress. HEENT: Head atraumatic, normocephalic. Conjunctivae nonerythematous. Sclerae white. Mouth, no thr ush or edema noted. Ears/Nose, no mass, lesion, discharge noted. Neck: Supple. No JVD, lymph nodes, bruit, thyromegaly noted. Lungs: Bilateral good equal air entry. Clear to auscultation. No rhonchi. No rales. Heart: Normal heart sounds, no murmur or gallop. Abdomen: Soft, bowel sounds normal. No guarding, rigidity, tenderness, mass, hepatosplenomegaly, dis tention, or bruit noted. Extremities: Bilateral leg shows trace edema involving lower half of both legs. Skin: No rash, ulcer, cellulitis. Lymphatics: No lymph node enlargement in neck, supraclavicular, infraclavicular region. Neuro: No focal neurological deficit. Chest: Unremarkable. External Genitalia: Deferred. Rectal: Deferred. Laboratory Data: EKG, . WBC 9.2, hemoglobin 14, platelets 209. Sodium 140, potassium 3.3 , chloride 105, bicarb 33, BUN 16, creatinine 1.09, glucose 96. Liver function tests unremarkable. ProBNP 959 and troponin 19.9. Chest x-ray, no acute changes. Impression: 1.Chest pain. 2.Neck pain. 3.Osteoarthritis, multiple sites. 4.Rheumatoid arthritis. 5.Chronic diastolic heart failure. 6.Hypertension. 7.Hyperlipidemia. 8.Hypothyroidism. 9.Diverticulosis. Plan: We will go ahead and admit the patient to hospital for further evaluation and management of th is problem. The patient is appropriate for observation. We will get serial cardiac enzymes and hiram rrow morning, we will get an echo with Doppler and Lexiscan stress test. If those test comes back ne [facility], plan will be to discharge her to go home. For hypertension, we will continue her antihyperte nsive medication per order. Monitor blood pressure if necessary, adjust medication. For chronic tyree stolic heart failure, we will continue her furosemide per order. For hypokalemia, we will replace po tassium and monitor electrolytes. For her rheumatoid arthritis, she takes leflunomide and prednisone and will continue that and no need for further intervention. For her neck pain, this is likely due to her osteoarthritis and no need for further intervention at this time. I did talk to her regarding her advance directive in the emergency room in presence of her family member and she informed me in the event of cardiopulmonary arrest, she does not want any heroic measures like CPR, defibrillation, or ventilator support, and DNR order will be written in the chart. Total time spent today was 80 min utes that includes communication with emergency room physician, review of emergency room records, rev iew of last office visit record, and performing evaluation and management for this hospital admission . GARTH/MODL Voice ID: [id number]
[2024-02-17 07:53] LABS: Absolute Eosinophils 0.2 K/uL (0-0.5); Absolute Lymphocytes (CBC) 2.4 K/uL (0.7-4.9); Absolute Monocytes 1.4 K/uL (0.1-1.3); Absolute Neutrophil 4.7 K/uL (1.8-8.0); Basophils % 0.5 % (0-1.3); Eosinophils % 2.5 % (0-4.4); Hematocrit 37.6 % (36.0-45.0); Hemoglobin 12.6 g/dL (12.0-15.0); Lymphocytes % 27.5 % (15.3-44.8); MCH 31.8 pg (27.0-35.0); MCHC 33.4 g/dL (32.0-36.0); MPV 8.9 fL (7.6-11.3); Monocytes % 15.9 % (3.3-12.3); Neutrophils % 53.6 % (41.7-73.7); Platelets 176 thou/uL (152-406); RBC Red Blood Cell Count 3.95 M/uL (3.86-4.86); Red Cell Distribution Width 13.8 % (12.1-15.2)
[2024-02-17] MEDS: FUROSEMIDE 40 MG TABLET PO SCH (08:10)
[2024-02-17] MEDS: LOSARTAN POTASSIUM 50 MG TABLET PO SCH (08:10)
[2024-02-17] MEDS: ASPIRIN 81 MG CHEWABLE TABLET PO SCH (08:10)
[2024-02-17] MEDS: predniSONE 5 MG TAB PO SCH (08:11)
[2024-02-17 08:16] LABS: Albumin 2.2 g/dL (3.4-5.0); Albumin/Globulin Ratio 0.6 (1.1-1.8); Alkaline Phosphatase 54 U/L (45-117); Anion Gap 7.3 mEq/L (5.0-15.0); BUN Blood Urea Nitrogen 13 mg/dL (7-18); Bicarbonate 30 mEq/L (21-32); Bilirubin Total 0.7 mg/dL (0.2-1.0); Globulin 3.5 g/dL (2.3-3.5); Glomerular Filtration Rate 77 ml/min (=/>90); Glucose Level 91 mg/dL (74-106); HDL Cholesterol 46 mg/dL (40-60); LDL Cholesterol, Calculated 64 mg/dL (<130); LDL Cholesterol,Calc NonReport 64; Potassium 3.3 mEq/L (3.5-5.1); Protein, Total 5.7 g/dL (6.4-8.2); Sodium Level 141 mEq/L (136-145); Troponin High Sensitivity 18.9 pg/mL (<58.9)
[2024-02-17 08:20] LABS: ALT/SGPT < 14 U/L (13-56); AST/SGOT < 10 U/L (15-37)
[2024-02-17] MEDS ORDERED: LEFLUNOMIDE 20 MG PO SCH (09:00)
[2024-02-17] MEDS ORDERED: REGADENOSON 0.4 MG/5 ML SYR IV ONE (09:42)
--- NOTE | 2024-02-17 10:53 | RAD REPORT ---
EXAM DESCRIPTION: NM - Rest Stress Cardiac Imaging - 02/17/2024 10:23 am CLINICAL HISTORY: Chest pain. COMPARISON: 2014 TECHNIQUE: The patient was administered 10.3. mCi of Tc 99m Sestamibi prior to resting SPECT imaging of the heart. The patient was then administered 30.1 mCi of Tc 99m Sestamibi following exercise or p harmacologic stress. Multiplanar SPECT images were reviewed. FINDINGS: There is uniformity of radiotracer uptake involving the entire left ventricular myocardiu m on rest and stress images. The left ventricular ejection fraction equals 66% IMPRESSION: Negative for a myocardial perfusion defect
[2024-02-17] MEDS: LEFLUNOMIDE 20 MG PO SCH (11:51)
--- NOTE | 2024-02-17 12:50 | P.CNS ---
Date of Consult: 02/17/24 Chief Complaint: chest pain, shoulder pain History of Present Illness: Patient with PMH of HTN, presented with shoulder pain/chest pain, generalized weakness, denies any other cardiac symptoms. Allergies No Known Drug Allergies Allergy (Verified 09/21/20 00:26) Unknown Home medications list reviewed: Yes Home Medications: Aspirin 81 mg PO DAILY 09/21/20 Gabapentin 300 mg PO BEDTIME 09/21/20 predniSONE [Deltasone] 5 mg PO DAILY 09/21/20 Furosemide 1 tab PO DAILY 02/16/24 Hydralazine HCl [Apresoline] 1 tab PO BID 02/16/24 Leflunomide 1 tab PO DAILY 02/16/24 Losartan Potassium 50 mg PO DAILY 02/16/24 - Past Medical/Surgical History Diabetic: No -: htn -: dvt -: diverticulitis -: hypothyroid -: rheumatoid arthritis -: cataract -: asthma -: neuropathy -: hyperlipidemia -: joel -: hysterectomy -: left knee -: tubal ligation -: cataract surgery - Family History Sister Medical History: Hypertension, Cancer Brother Medical History: Cancer - Social History Alcohol use: No CD- Drugs: No Caffeine use: Yes Place of Residence: Home Review of Systems 10-point ROS is otherwise unremarkable Physical Examination Temp Pulse Resp BP Pulse Ox 97.4 F 86 22 H 166/71 H 90 L 02/17/24 12:00 02/17/24 12:00 02/17/24 12:00 02/17/24 12:00 02/17/24 12:00 General: Alert, In no apparent distress HEENT: Atraumatic, PERRLA, Mucous membr. moist/pink, EOMI, Sclerae nonicteric Neck: Supple, 2+ carotid pulse no bruit, No LAD, Without JVD or thyroid abnormality Respiratory: Clear to auscultation bilaterally, Normal air movement Cardiovascular: Regular rate/rhythm, Normal S1 S2 Gastrointestinal: Normal bowel sounds, No tenderness Musculoskeletal: No tenderness Integumentary: No rashes Neurological: Normal gait, Normal speech, Normal tone, Normal affect Lymphatics: No axilla or inguinal lymphadenopathy Laboratory Data (last 24 hrs) 02/16/24 02/16/24 16:29 16:29 WBC 9.20 Hgb 14.0 Hct 43.9 Plt Count 209 Sodium 140 Potassium 3.3 L BUN 16 Creatinine 1.09 H Glucose 96 Magnesium 2.0 Total Bilirubin 0.7 AST 12 L ALT 19 Alkaline Phosphatase 69 - Problems (1) HTN (hypertension) Current Visit: Yes Status: Acute Plan: continue patient home medications. (2) Chest pain Onset Date: 09/22/14 Current Visit: No Status: Acute Plan: patient had a stress test that is negative. continue ASA 81 mg daily
--- NOTE | 2024-02-17 14:42 | TREADPHA ---
DX: CHEST PAIN Date of Study: 02/17/2024 Ht: 5' 0 " Wt: 154 lb 0 oz Consulting Physician: ROSE MEDICATIONS: ASPIRIN, LASIX, NEURONTIN, APRESOLINE, COZAAR, DELTASONE HISTORY: 83 YEAR OLD FEMALE WITH COMPLIANTS OF CHEST DISCOMFORT AND SHORTNESS OF BREATH. PATIENT DENIES CARDIAC HISTORY. PATIENT DENIES ALLERGIES. PHYSICIAL EXAMINATION: RESTING B.P.: 157/67 RESTING H.R.: 86 RESTING EKG: SINUS RHYTHM WITH PREMATURE VENTRICULAR COMPLEXES, PREMATURE ATRIAL COMPLEXES THROUGHOUT PROTOCOL: PHARMACOLOGIC EXERCISE TIME: 3:30 B.P. AT PEAK STRESS: 127/58 IMPRESSION: LEXISCAN INJECTED. CARDIOLITE INJECTED - SEE NUCLEAR MEDICINE REPORT. PATIENT STATES CHEST PRESSURE THROUGHOUT. NO SUPRAVENTRICULAR TACHYCARDIA, VENTRICULAR TACHYCARDIA NOTED. PREMATURE ATRIAL COMPLEXES PRE PROCEDURE, NONE DURING OR POST RECOVERY. PREMATURE VENTRICULAR COMPLEXES NOTED THROUGHOUT.
--- NOTE | 2024-02-17 16:55 | EKG ---
Test Date: 2024-02-16 Test Time: 16:22:32 Panel Cutter: RACHEL MEASUREMENT RESULTS: Intervals: Rate: 76 ND: 140 QRSD: 72 QT: 394 QTc: 443 Loda: P: 67 ND: 140 QRS: 60 T: 86 INTERPRETIVE STATEMENTS: Normal sinus rhythm Septal infarct, age undetermined Abnormal ECG Compared to ECG 07/05/2021 09:26:53 Myocardial infarct finding now present Ventricular premature complex(es) no longer present Electronically Signed On 02-17-24 16:52:45 CDT by Ameya Barrios
[2024-02-17 19:55] VITALS: BP 138/99; TEMP 97.4
--- NOTE | 2024-02-18 06:47 | ECHO ---
HEIGHT: 5 ft 0 in WEIGHT: 154 lb 0 oz DATE OF STUDY: 02/17/[address]: César Alanis MD 2-DIMENSIONAL: YES M.MODE: YES DOPPLER: YES COLOR FLOW: YES TDS: PORTABLE: YES DEFINITY: BUBBLE STUDY: DIAGNOSIS: CHEST PAIN CARDIAC HISTORY: CATHERIZATION: SURGERY: PROSTHETIC VALVE: PACEMAKER: MEASUREMENTS (cm) DIASTOLIC (NORMALS) SYSTOLIC (NORMALS) IVSd 1.1 (0.6-1.2) LA Diam 3.5 (1.9-4.0) LVEF 55-60% LVIDd 4.3 (3.5-5.7) LVIDs 2.9 (2.0-3.5) %FS 33% LVPWd 1.1 (0.6-1.2) Ao Diam 3.0 (2.0-3.7) 2 DIMENSIONAL ASSESSMENT: RIGHT ATRIUM: NORMAL LEFT ATRIUM: NORMAL RIGHT VENTRICLE: NORMAL LEFT VENTRICLE: NORMAL TRICUSPID VALVE: TRACE TRICUSPID REGURGITATION MITRAL VALVE: TRACE MITRAL REGURGITATION PULMONIC VALVE: NORMAL AORTIC VALVE: MILD AORTIC INSUFFICIENCY PERICARDIAL EFFUSION: NONE AORTIC ROOT: NORMAL LEFT VENTRICULAR WALL MOTION: NORMAL DOPPLER/COLOR FLOW: SEE BELOW COMMENTS: 1. NORMAL LEFT VENTRICULAR EJECTION FRACTION 55-60% WITH NORMAL WALL MOTION 2. GRADE I DIASTOLIC DYSFUNCTION 3. MILD AORTIC INSUFFICIENCY TECHNOLOGIST: DANITA STORY
== END 2024-02-17 19:45 | disposition home or self-care (01) ==
LOC: ER 16:01 → ERHOLD 17:15 → 4TH 19:51
PROVIDERS: ADMIT Internal Medicine; ATTEND Internal Medicine
DX: R07.9 Chest pain, unspecified (principal); M54.2 Cervicalgia; M19.90 Unspecified osteoarthritis, unspecified site; M06.9 Rheumatoid arthritis, unspecified; I50.32 Chronic diastolic (congestive) heart failure; I10 Essential (primary) hypertension; E78.5 Hyperlipidemia, unspecified; E03.9 Hypothyroidism, unspecified; K57.90 Diverticulosis of intestine, part unspecified, without perforation or abscess without bleeding; R53.1 Weakness
CPT/HCPCS: 93005; 93017; 93306; 85025 ×2; 80048; 36415; 83735; 80061; 80076; 84484 ×4; 80053; 83880; 71045; 78452; 99285; J7512; J2785; A9500; G0378

== ENCOUNTER 2024-07-05 04:27 | Observation (INO) | payer OTHER ==
--- OUTSIDE RECORDS SUMMARY | 2024-07-05 04:29 | XMS REPORT | Continuity of Care Document ---
Author Name Unknown Address [address] [place] [address] [facility] Address [address] [place] [address] Care Team Providers Care Nail Kegger Name Role Phone Nathaniel Carroll Attending Clinician Unavail able Payers Payer Name Policy Type Policy Number Effective Date Expirati on Date Source Allergies, Adverse Reactions, Alerts Allergy Name Allergy Type Status Severity Reaction(s) Onset Date Inactive Date Treating Clinician Comments Source No Known Allergie s DA Active U 09-21 00:00: 00 [facility] are Rolla Pinon No Known Allergie s DA Active U 09-21 00:00: 00 [facility] are Phillip Pinon Encounters Start Date/Time End Date/Time Encounter Type Admission Type Attending Clinicians Care Facility Care Department Encounter ID Source 2020-09-21 12:55:39 Inpatient Nathaniel Carroll [facility] [id number] [facility] are Phillip Pinon Results Test Description Test Time Test Comments Results Result Co mments Source BASIC METABOLIC [id number] 10:35:00* Test Item Value Reference Range Interpretation [...]
[2024-07-05 05:20] LABS: Absolute Eosinophils 0.2 K/uL (0-0.5); Absolute Lymphocytes (CBC) 2.7 K/uL (0.7-4.9); Absolute Monocytes 0.8 K/uL (0.1-1.3); Absolute Neutrophil 2.3 K/uL (1.8-8.0); Basophils % 0.8 % (0-1.3); Eosinophils % 3.3 % (0-4.4); Hematocrit 42.2 % (36.0-45.0); Hemoglobin 14.2 g/dL (12.0-15.0); Lymphocytes % 43.9 % (15.3-44.8); MCH 31.1 pg (27.0-35.0); MCHC 33.6 g/dL (32.0-36.0); MCV 92.8 fL (80-100); MPV 9.7 fL (7.6-11.3); Monocytes % 13.9 % (3.3-12.3); Neutrophils % 38.1 % (41.7-73.7); Nucleated Red Blood Cells % 0.1 % (0-0); Platelets 128 thou/uL (152-406); RBC Red Blood Cell Count 4.55 M/uL (3.86-4.86); Red Cell Distribution Width 13.5 % (12.1-15.2)
[2024-07-05 05:33] LABS: PT Prothrombin Time 12.2 SECONDS (9.4-12.5); Protime INR 1.16
[2024-07-05 06:02] LABS: Albumin 2.5 g/dL (3.4-5.0); Albumin/Globulin Ratio 0.6 (1.1-1.8); Anion Gap 8.6 mEq/L (5.0-15.0); Bilirubin Direct 0.2 mg/dL (0-0.2); Bilirubin Indirect, Calculated 0.3 mg/dL (0.2-0.8); Bilirubin Total 0.5 mg/dL (0.2-1.0); Globulin 3.9 g/dL (2.3-3.5); Potassium 3.6 mEq/L (3.5-5.1); Protein, Total 6.4 g/dL (6.4-8.2); Troponin High Sensitivity 17.8 pg/mL (<58.9)
--- NOTE | 2024-07-05 06:44 | RAD REPORT ---
EXAM: XR Chest, 1 View CLINICAL HISTORY: The patient is 83 years old and is Female; DYSPNEA TECHNIQUE: Frontal view of the chest. COMPARISON: No relevant prior studies available. FINDINGS: Lungs: Mildly prominent interstitial markings. No consolidation. Pleural space: Blunting of the left costophrenic angle which may indicate left pleural effusion. No pneumothorax. Heart: Unremarkable. Mediastinum: Unremarkable. Normal mediastinal contour. Bones/joints: No acute findings. IMPRESSION: 1. Blunting of the left costophrenic angle which may indicate left pleural effusion. 2. Mildly prominent interstitial markings. No consolidation. Electronically signed by: Shar Ayon MD 07/05/2024 05:47 AM [facility] 8 Due to temporary technical issues with the [employer]ACS[employer] reporting system, reports are being violette d by the in-house radiologist without review as a courtesy to ensure prompt reporting the interpreting radiologist is fully responsible for the content of the report. Transcribed Date/Time: 07/05/2024 6:43 AM
[2024-07-05] MEDS ORDERED: FUROSEMIDE 40 MG/4 ML VIAL ONE (07:16)
--- NOTE | 2024-07-05 07:16 | EDPHYS ---
Physician Documentation [facility] Name: Jigna Horne Age: 83 yrs Sex: Female : 1940 Arrival Date: 07/05/2024 Time: 04: Bed 2 Private MD: ED Physician Andry Roy HPI: 07/05 05:19 This 83 yrs old Female presents to ER via Wheelchair with complaints of ms3 Shortness Of Breath, Chest Congestion. 05:19 David Horne is an 83-year-old female who presents to the Emergency ms3 Department with a cough and shortness of breath that started on Friday. She reports that the cough worsened since last night. She denies having a fever. She experiences chest pain associated with the cough and notes difficulty sleeping due to the chest discomfort.. Historical: - Allergies: 04:50 No Known Allergies; br2 - Immunization history:: Adult Immunizations up to date. - Infectious Disease History:: Denies. - Social history:: Smoking status: Patient denies any tobacco usage or history of. ROS: 05:19 Constitutional: Negative for fever, and chills. Cardiovascular: Negative for chest ms3 pain, and palpitations. Abdomen/GI: Negative for abdominal pain, nausea, vomiting, diarrhea, and constipation, 05:19 Respiratory: Positive for cough, shortness of breath, Exam: 05:19 Constitutional: This is a well developed, well nourished patient who is awake, alert, ms3 and in no acute distress. Cardiovascular: Regular rate and rhythm with a normal S1 and S2. No gallops, murmurs, or rubs. Normal PMI, no JVD. No pulse deficits. Respiratory: Lungs have equal breath sounds bilaterally, clear to auscultation and percussion. No rales, rhonchi or wheezes noted. No increased work of breathing, no retractions or nasal flaring. Abdomen/GI: Soft, non-tender, with normal bowel sounds. No distension or tympany. No guarding or rebound. No evidence of tenderness throughout. Skin: Warm, dry with normal turgor. Normal color with no rashes, no lesions, and no evidence of cellulitis. MS/ Extremity: Pulses equal, no cyanosis. Neurovascular intact. Full, normal range of motion. 06:08 ECG was reviewed by the Attending Physician. ms3 Vital Signs: 04:48 BP 201 / 91; Pulse 68; Resp 18; Temp 97.4; Pulse Ox 94% on R/A; Weight 63.5 kg; Height br2 5 ft. 0 in. ; Pain 0/10; 06:02 BP 210 / 90; Pulse 71; Resp 18; Pulse Ox 94% on R/A; br2 07:30 BP 186 / 86; Pulse 76; Resp 15; Pulse Ox 95% ; bp 08:53 BP 188 / 112; Pulse 90; Resp 16; Pulse Ox 95% ; bp 04:48 Body Mass Index 27.34 (63.50 kg, 152.4 cm) br2 04:48 Pain Scale: Adult br2 MDM: 04:57 Medical Screening Exam initiated ms3 05:19 Differential diagnosis: CHF exacerbation, Chronic Obstructive Pulmonary Disease ms3 pneumonia. 07:41 Data reviewed: vital signs, nurses notes, lab test result(s), EKG, radiologic studies, ms3 and as a result, I will admit patient. Consideration of Admission/Observation Patient was admitted/placed on observation. Management of patient was discussed with the following: Hospitalist: Dr Alanis. I considered the following discharge prescriptions or medication management in the emergency department Medications were administered in the Emergency Department. See MAR. Independent interpretation of the following test(s) in the Emergency Department EKG: See my EKG interpretation above. Counseling: I had a detailed discussion with the patient and/or guardian regarding the historical points, exam findings, and any diagnostic results supporting the discharge/admit diagnosis, lab results. ED course: Discussed case with Dr. Alanis and he accepts patient. All questions were answered. Discussed necessity for observation with patient.. 08:31 ED course: Discussed patient covid positive with Dr Alanis. He would like paxlovid 3 tabs ms3 bid. 07/05 04:35 Order name: Basic Metabolic Panel; Complete Time: 06:28 ms3 07/05 04:35 Order name: CBC with Diff; Complete Time: 08:27 ms3 07/05 04:35 Order name: LFT's; Complete Time: 06:28 ms3 07/05 04:35 Order name: Magnesium; Complete Time: 06:28 ms3 07/05 04:35 Order name: NT PRO-BNP; Complete Time: 06:28 ms3 07/05 04:35 Order name: PT-INR; Complete Time: 06:28 ms3 07/05 04:35 Order name: Troponin HS; Complete Time: 06:28 ms3 07/05 07:03 Order name: Flu; Complete Time: 08:30 ms3 07/05 07:03 Order name: SARS RAPID; Complete Time: 08:27 ms3 07/05 07:23 Order name: Troponin High Sensitivity EDMS 07/05 07:23 Order name: Troponin High Sensitivity EDMS 07/05 07:23 Order name: Troponin High Sensitivity EDMS 07/05 07:23 Order name: Troponin High Sensitivity EDMS 07/05 07:24 Order name: CBC with Automated Diff EDMS 07/05 07:24 Order name: CBC with Automated Diff EDMS 07/05 07:24 Order name: Comprehensive Metabolic Panel EDMS 07/05 07:24 Order name: Comprehensive Metabolic Panel EDMS 07/05 04:35 Order name: XRAY Chest (1 view); Complete Time: 08:27 ms3 07/05 04:35 Order name: EKG; Complete Time: 04:36 ms3 07/05 04:35 Order name: Cardiac monitoring; Complete Time: 04:48 ms3 07/05 04:35 Order name: EKG - Nurse/Tech; Complete Time: 04:48 ms3 07/05 04:35 Order name: IV Saline Lock; Complete Time: 05:06 ms3 07/05 04:35 Order name: Labs collected and sent; Complete Time: 05:06 ms3 07/05 04:35 Order name: O2 Per Protocol; Complete Time: 04:50 ms3 07/05 04:35 Order name: O2 Sat Monitoring; Complete Time: 04:50 ms3 EC:08 Rate is 71 beats/min. Rhythm is regular. QRS [place] is Normal. DC interval is normal. QRS ms3 interval is normal. Clinical impression: NSR w/ Non-specific ST/T Changes. Interpreted by me. Reviewed by me. Administered Medications: 07:43 Drug: hydrALAZINE IVP 10 mg IVP once Route: IVP; Site: right antecubital; bp 08:55 Follow up: Response: No adverse reaction bp 07:44 Drug: Furosemide IVP 40 mg IVP once; give over 2 minutes Route: IVP; Site: right bp antecubital; 08:55 Follow up: Response: No adverse reaction bp Disposition Summary: 07/05/24 07:16 Hospitalization Ordered Notes: Hospitalization Status: Inpatient Admission ms3 Provider: Sandra Alanis ms3 Condition: Stable ms3 Problem: new ms3 Symptoms: are unchanged ms3 Bed/Room Type: Standard ms3 Location: Telemetry/MedSurg (Inpatient)(07/05/24 15:11) bd Room Assignment: 411(07/05/24 15:11) bd Diagnosis - Heart failure, unspecified ms3 - Shortness of breath ms3 - Essential (primary) hypertension ms3 Forms: - Medication Reconciliation Form ms3 - SBAR form ms3 - Leadership Thank You Letter ms3 Signatures: Dispatcher [employer] EDMS Gloria Flannery Brian, RN RN bp Andry Roy DO DO ms3 Stacey Hayward, RN RN kb3 Mary Betancur RN RN br2 Corrections: (The following items were deleted from the chart) 04:36 04:36 BASIC METABOLIC PANEL+C.LAB.BRZ ordered. EDMS EDMS 04:36 04:36 CBC+H.LAB.BRZ ordered. EDMS EDMS 04:36 04:36 HEPATIC FUNCTION+C.LAB.BRZ ordered. EDMS EDMS 04:36 04:36 MAGNESIUM+C.LAB.BRZ ordered. EDMS EDMS 04:36 04:36 PROBNP+C.LAB.BRZ ordered. EDMS EDMS 04:36 04:36 PROTIME (+INR)+COAG.LAB.BRZ ordered. EDMS EDMS 04:36 04:36 Troponin High Sensitivity+C.LAB.BRZ ordered. EDMS EDMS 07:48 05:23 Manual Differential ordered. EDMS EDMS 08:33 07:16 Telemetry/MedSurg (observation) ms3 kb3 08:33 07:16 ms3 kb3 15:11 08:33 [facility] ER HOLD kb3 bd 15:11 08:33 ERHOLD- kb3 bd
--- NOTE | 2024-07-05 07:16 | ER ---
Nurse's Notes [facility] Name: Jigna Horne Age: 83 yrs Sex: Female : 1940 Arrival Date: 07/05/2024 Time: : Bed 2 Private MD: Diagnosis: Heart failure, unspecified;Shortness of breath;Essential (primary) hypertension Presentation: 07/05 04:48 Chief complaint: Patient states: SOB, COUGH, DIARRHEA, CHEST PRESSURE, DENIES FEVER OR br2 VOMITING. Coronavirus screen: Client denies travel out of the [place] in the last 14 days. Ebola Screen: Patient denies exposure to infectious person. Initial Sepsis Screen: Does the patient meet any 2 criteria? No. Patient's initial sepsis screen is negative. Does the patient have a suspected source of infection? No. Patient's initial sepsis screen is negative. Risk Assessment: Do you want to hurt yourself or someone else? Patient reports no desire to harm self or others. Onset of symptoms was July 02, 2024. 04:48 Method Of Arrival: Wheelchair br2 04:48 Acuity: SADIE 3 br2 Triage Assessment: 04:50 General: Appears uncomfortable, Behavior is cooperative, restless. Pain: Denies pain. br2 Respiratory: Reports shortness of breath cough that is productive, Breath sounds are diminished bilaterally. Onset: The symptoms/episode began/occurred FRIDAY, the patient has moderate shortness of breath. GI: No signs and/or symptoms were reported involving the gastrointestinal system. Abdomen is round. : No signs and/or symptoms were reported regarding the genitourinary system. Derm: No signs and/or symptoms reported regarding the dermatologic system. Musculoskeletal: No signs and/or symptoms reported regarding the musculoskeletal system. Historical: - Allergies: 04:50 No Known Allergies; br2 - Immunization history:: Adult Immunizations up to date. - Infectious Disease History:: Denies. - Social history:: Smoking status: Patient denies any tobacco usage or history of. Screenin:48 [facility] ED Fall Risk Assessment (Adult) History of falling in the last 3 months, br2 including since admission No falls in past 3 months (0 pts) Confusion or Disorientation No (0 pts) Intoxicated or Sedated No (0 pts) Impaired Gait Yes (1 pt) Mobility Assist Device Used Yes (1 pt) Altered Elimination No (0 pt) Score/Fall Risk Level 0 - 2 = Low Risk Oriented to surroundings. Abuse screen: Denies threats or abuse. Denies injuries from another. Nutritional screening: No deficits noted. Tuberculosis screening: No symptoms or risk factors identified. Assessment: 04:48 Cardiovascular: Rhythm is regular. Respiratory: Airway Respiratory effort is even, br2 shallow, weak, Respiratory pattern is regular, symmetrical. 06:01 Reassessment: SEE TRIAGE ASSESSMENT. br2 06:12 Reassessment: No changes from previously documented assessment. Patient and/or family br2 updated on plan of care and expected duration. Pain level reassessed. Patient is alert, oriented x 3, equal unlabored respirations, skin warm/dry/pink. 08:00 Reassessment: ADMIT INITIATED. bp Vital Signs: 04:48 BP 201 / 91; Pulse 68; Resp 18; Temp 97.4; Pulse Ox 94% on R/A; Weight 63.5 kg; Height br2 5 ft. 0 in. ; Pain 0/10; 06:02 BP 210 / 90; Pulse 71; Resp 18; Pulse Ox 94% on R/A; br2 07:30 BP 186 / 86; Pulse 76; Resp 15; Pulse Ox 95% ; bp 08:53 BP 188 / 112; Pulse 90; Resp 16; Pulse Ox 95% ; bp 04:48 Body Mass Index 27.34 (63.50 kg, 152.4 cm) br2 04:48 Pain Scale: Adult br2 ED Course: 04:30 Patient arrived in ED. jj6 04:35 Andry Roy DO is Attending Physician. ms3 04:48 Arm band placed on. br2 04:48 Patient has correct armband on for positive identification. Bed in low position. Call br2 light in reach. Side rails up X 1. FAMILY AT BEDSIDE. Provided Education on: PLAN OF CARE. 04:50 Triage completed. br2 05:06 Basic Metabolic Panel Sent. vk 05:06 CBC with Diff Sent. vk 05:06 LFT's Sent. vk 05:06 Magnesium Sent. vk 05:06 NT PRO-BNP Sent. vk 05:06 Troponin HS Sent. vk 05:06 Initial lab(s) drawn, by me, sent to lab. Inserted saline lock: 20 gauge in right vk antecubital area, using aseptic technique. Blood collected. Flushed with 10 mL NS. 05:18 Mary Betancur, RN is Primary Nurse. br2 05:21 XRAY Chest (1 view) In Process Unspecified. EDMS 07:15 Sandra Alanis MD is Hospitalizing Provider. ms3 08:30 [place] [address]ED. bp 08:54 No provider procedures requiring assistance completed. Patient admitted, IV remains in bp place. Administered Medications: 07:43 Drug: hydrALAZINE IVP 10 mg IVP once Route: IVP; Site: right antecubital; bp 08:55 Follow up: Response: No adverse reaction bp 07:44 Drug: Furosemide IVP 40 mg IVP once; give over 2 minutes Route: IVP; Site: right bp antecubital; 08:55 Follow up: Response: No adverse reaction bp Medication: 04:48 VIS not applicable for this client. br2 Outcome: 07:16 Decision to Hospitalize by Provider. ms3 15:28 Admitted to Med/surg accompanied by tech, via stretcher, room 411, with chart, bp 15:28 Condition: stable 15:28 Instructed on the need for admit, 16:45 Patient left the ED. bp Signatures: Dispatcher [employer] EDMS Vivek Mendes, RN RN bp Andry Roy DO DO ms3 Tiffanie Ahuja Vivian vk Riddle, Belinda, RN RN br2
[2024-07-05] MEDS ORDERED: HYDRALAZINE HCL 20 MG/ML VIAL ONE (07:34)
[2024-07-05 08:23] LABS: SARS-CoV-2 Antigen CONTROL BLUE LINE VIS/BG OK
[2024-07-05 08:25] LABS: SARS-CoV-2 Antigen Rapid Res Positive (Negative)
[2024-07-05] MEDS: Levofloxacin500mg IV 500 MG/100 ML BAG IV SCH (09:00)
[2024-07-05] MEDS: METHYLPREDNISOLONE 40 MG INJ IV SCH (09:00)
[2024-07-05] MEDS: AMLODIPINE 5 MG TAB PO SCH (09:00)
[2024-07-05] MEDS: LOSARTAN POTASSIUM 50 MG TABLET PO SCH (09:00)
[2024-07-05] MEDS: HYDRALAZINE HCL 25 MG TABLET PO SCH (09:00)
[2024-07-05] MEDS: ENOXAPARIN 40 MG/0.4 ML SQ SCH (09:00)
[2024-07-05] MEDS: ASPIRIN EC 81 MG TAB PO SCH (09:00)
[2024-07-05] MEDS: NIRMATRELVIR/RITONAVIR TABLET PO SCH (09:00)
[2024-07-05] MEDS ORDERED: ALBUTEROL 2.5 MG/3 ML NEB SOL ONE (09:54)
[2024-07-05] MEDS ORDERED: HYDRALAZINE HCL 25 MG TABLET ONE (09:55)
[2024-07-05] MEDS ORDERED: ASPIRIN EC 81 MG TAB PO ONE (09:55)
[2024-07-05] MEDS ORDERED: AMLODIPINE 5 MG TAB ONE (09:55)
[2024-07-05] MEDS ORDERED: LOSARTAN POTASSIUM 50 MG TABLET ONE (09:56)
[2024-07-05] MEDS ORDERED: ENOXAPARIN 40 MG/0.4 ML SQ ONE (09:56)
[2024-07-05] MEDS ORDERED: METHYLPREDNISOLONE 40 MG INJ ONE (09:56)
[2024-07-05] MEDS ORDERED: Levofloxacin500mg IV 500 MG/100 ML BAG IV ONE (10:24)
[2024-07-05] MEDS: FUROSEMIDE 40 MG/4 ML VIAL IV SCH (18:07)
[2024-07-05] MEDS: ONDANSETRON 4 MG/2 ML VIAL IV PRN (20:19)
[2024-07-05] MEDS: ACETAMINOPHEN 500 MG TAB PO PRN (20:19)
[2024-07-05] MEDS: GABAPENTIN 300 MG CAP PO SCH (20:20)
[2024-07-05] MEDS: ALBUTEROL 2.5 MG/3 ML NEB SOL NEB SCH (20:50)
[2024-07-05 20:51] VITALS: O2SAT 96
[2024-07-06 06:29] LABS: Absolute Lymphocytes (CBC) 0.8 K/uL (0.7-4.9); Absolute Monocytes 0.2 K/uL (0.1-1.3); Absolute Neutrophil 3.5 K/uL (1.8-8.0); Basophils % 0.2 % (0-1.3); Hematocrit 42.9 % (36.0-45.0); Hemoglobin 14.8 g/dL (12.0-15.0); Lymphocytes % 17.8 % (15.3-44.8); MCH 31.6 pg (27.0-35.0); MCHC 34.4 g/dL (32.0-36.0); MCV 91.8 fL (80-100); MPV 9.7 fL (7.6-11.3); Monocytes % 4.7 % (3.3-12.3); Neutrophils % 77.3 % (41.7-73.7); Nucleated Red Blood Cells % 0.1 % (0-0); Platelets 155 thou/uL (152-406); RBC Red Blood Cell Count 4.68 M/uL (3.86-4.86); Red Cell Distribution Width 13.5 % (12.1-15.2)
--- NOTE | 2024-07-06 06:43 | HP ---
Date of Admission: 07/05/2024 Chief Complaint: Cough, congestion, shortness of breath. History Of Present Illness: 83-year-old pleasant female patient who was brought into emergency room with 2 days' history of cough, congestion, shortness of breath. The patient is not able to cough up any mucus. Denies any chest pain. After she was evaluated in the emergency room, I was contacted re questing admission to the hospital. I saw her in the emergency room and her son was present with her at bedside. The patient's blood pressure when she first came in was extremely high with systolic bl ood pressure around 200 to 210, and she required some medication for blood pressure control in the em ergency room. By the time I saw her, her blood pressure was much better. Physical Examination: Vital Signs: Temperature 98.1, pulse 90, respiratory rate 18, blood pressure 151/74, oxygen saturati on 93%. Height 5 feet. Weight 139 pounds, which does not appear to be correct weight as the patient appears to weigh higher than that; in fact last weight at office was 159.2 pounds on May 12. General: Awake, alert, oriented, not in distress. HEENT: Head atraumatic, normocephalic. Conjunctivae nonerythematous. Sclerae white. Mouth, no thr ush or edema noted. Ears/Nose, no mass, lesion, discharge noted. Neck: Supple. No JVD, lymph nodes, bruit, thyromegaly noted. Lungs: Presence of some rales in lower lung field. Not using accessory muscles of respiration. Oth erwise, lung examination is clear. No wheezing. Heart: Normal heart sounds, no murmur or gallop. Abdomen: Soft, bowel sounds normal. No guarding, rigidity, tenderness, mass, hepatosplenomegaly, dis tention, or bruit noted. Extremities: Bilateral trace leg edema. Skin: No rash, ulcer, cellulitis. Lymphatics: No lymph node enlargement in neck, supraclavicular, infraclavicular region. Neuro: No focal neurological deficit. Chest: Unremarkable. External Genitalia: Deferred. Rectal: Deferred. Laboratory Data: WBC 6.10, hemoglobin 14.2, platelets 128. Sodium 140, potassium 3.6, chloride 108, bicarb 27, BUN 10, creatinine 0.82, glucose 95. Liver function test unremarkable. Initial troponin 17.8, second troponin 22, third troponin 28.1. Chest x-ray shows blunting of the left costophrenic angle and mild prominence of interstitial markings. No consolidation. The patient's COVID-19 test c niurka back positive. Impression: 1.Chronic diastolic heart failure with acute exacerbation. 2.COVID-19 infection. 3.Hypertension. 4.Hyperlipidemia. 5.Hypothyroidism. 6.Peripheral neuropathy. 7.Insomnia. 8.Rheumatoid arthritis with neuropathy. 9.Urge incontinence. 10.Diverticulosis. 11.Depression. Plan: We will admit the patient to hospital for further evaluation and management of this problem. The patient is appropriate for inpatient and is expected to spend 2 midnights in hospital. For her a cute exacerbation of chronic diastolic heart failure, we will treat with IV Lasix per order. Monitor her electrolytes and renal function, and make adjustment on medication depending on the patient's re sponse. For her COVID-19 infection, we will start the patient on Paxlovid per order and no need for any further intervention at this time. For hypertension, we will continue her antihypertensive medic ation with monitoring of blood pressure to consider adjustment on medication. will not re quire any further intervention. The patient takes prednisone 5 mg daily as her chronic maintenance m edication, so we will give just a stress dose of steroid. Right now, we will just go ahead and do So heather-Medrol 40 mg IV q.8 hours. No need for further intervention for her rheumatoid arthritis problem at this time. Total time spent today was 85 minutes, including review of last office visit record from 05/12/2024, review of last hospital admission visit record, communication with ER physician, review of emergency room visit record, and performing today's evaluation and management. I will see her in the morning for julianne doherty. GARTH/JOAN Voice ID: [id number]
[2024-07-06 06:47] LABS: Albumin 2.5 g/dL (3.4-5.0); Albumin/Globulin Ratio 0.6 (1.1-1.8); Bilirubin Total 0.5 mg/dL (0.2-1.0); Protein, Total 6.5 g/dL (6.4-8.2)
[2024-07-06 07:38] LABS: Blood Morphology Comment NOT SEEN (NOT SEEN); Platelet Estimate ADEQ; Platelets, Giant NOTED; White Blood Cell Scan OK (OK)
[2024-07-06 08:38] VITALS: TEMP 97.7
[2024-07-06] MEDS: FUROSEMIDE 40 MG/4 ML VIAL IV SCH (08:46)
[2024-07-06 10:51] VITALS: BMI 27.3
[2024-07-06 12:08] VITALS: BP 137/71
--- NOTE | 2024-07-07 05:08 | DS ---
Date of Discharge: 07/06/2024 Disposition: Discharged to go home. Physical Examination: HEENT: Unremarkable. Lungs: Clear to auscultation. Heart: Sounds normal. Abdomen: Soft. Bowel sounds normal. No guarding, rigidity, tenderness, distention. Extremities: No leg edema. Laboratory Data: Yesterday, WBC 6.1, hemoglobin 14.2, platelets 128. Today, WBC 4.6, hemoglobin 14. 8, platelets 155. For chemistry yesterday, sodium 140, potassium 3.6, chloride 108, bicarb 27, BUN 1 0, creatinine 0.82, glucose 95. Liver function tests unremarkable. Initial troponin 17.8, second tr oponin 22, third troponin 28.1. This morning, sodium 134, potassium 3, chloride 98, bicarb 28, BUN 1 4, creatinine 1.07, glucose 161. Discharge Medications And Instructions: 1.Continue paxlovid 3 tablets by mouth 2 times a day. 2.Take prednisone 10 mg, the patient to take 3 tablets by mouth daily for 3 days, then 2 tablets abel ly for 3 days, then 1 tablet daily for 3 days, then stop. 3.Followup at my office on 07/19/2024, the patient to call office for appointment. Hospital Course: This is an 83-year-old very pleasant female patient, came into emergency room yeste rday with cough, congestion, shortness of breath. Please see dictated H and P for more information. After the patient was evaluated in emergency room, she was admitted to hospital. Initially in the e mergency room, she was treated for congestive heart failure with IV Lasix and her COVID-19 test came back positive, so she was also started on paxlovid. The patient takes prednisone 5 mg daily at home, so she was given IV Solu-Medrol yesterday upon admission. Overall, her condition significantly has improved overnight in the hospital. This morning, she was feeling much better, looking lot better, s o decision was made to discharge her to go home with above-mentioned medications and instructions. I have instructed the patient to take prednisone tapering dose for 9 days as prescribed and once she g ets done with this, then she should resume her normal dose of 5 mg daily prednisone and she verbalize d this understanding. Final Diagnoses: 1.Chronic diastolic heart failure with acute exacerbation. 2.COVID-19 infection. 3.Hypokalemia. 4.Hypertension. 5.Hyperlipidemia. 6.Hypothyroidism. 7.Peripheral neuropathy. 8.Insomnia. 9.Rheumatoid arthritis with neuropathy. 10.Urge incontinence. 11.Diverticulosis. 12.Depression. Total time spent 35 minutes. GARTH/MODL Voice ID: [id number] Report ID: [id number]
--- NOTE | 2024-07-07 12:36 | EKG ---
Test Date: 2024-07-05 Test Time: 04:45:52 Entertainer Or Variety Artist: LUIS MEASUREMENT RESULTS: Intervals: Rate: 71 DC: 142 QRSD: 74 QT: 334 QTc: 362 [place]: P: 44 DC: 142 QRS: -17 T: 229 INTERPRETIVE STATEMENTS: Normal sinus rhythm Septal infarct, age undetermined Abnormal ECG Compared to ECG 02/16/2024 16:22:32 No significant changes Electronically Signed On 07-07-24 12:32:34 BORDERER by Everardo Espinoza
== END 2024-07-06 12:22 | disposition home or self-care (01) ==
LOC: ER 04:27 → ERHOLD 07:18 → 4TH 15:23
PROVIDERS: ADMIT Internal Medicine; ATTEND Internal Medicine
DX: I50.33 Acute on chronic diastolic (congestive) heart failure (principal); U07.1 COVID-19; I10 Essential (primary) hypertension; E78.5 Hyperlipidemia, unspecified; E03.9 Hypothyroidism, unspecified; G62.9 Polyneuropathy, unspecified; G47.00 Insomnia, unspecified; M06.9 Rheumatoid arthritis, unspecified; N39.41 Urge incontinence; K57.90 Diverticulosis of intestine, part unspecified, without perforation or abscess without bleeding; F32.A Depression, unspecified; E87.6 Hypokalemia
CPT/HCPCS: 85025 ×2; 80048; 36415 ×2; 83735; 85610; 80076; 84484 ×4; 80053; 83880; 87804 ×2; 71045; 94640; 87811; J8499 ×3; J0360; J1940 ×3; J7613 ×3; J1650 ×2; J2405; J2919 ×4; 93005; 96374; 96375; 99285; G0378

== ENCOUNTER 2024-07-15 11:12 | Inpatient (IN) | payer OTHER ==
--- OUTSIDE RECORDS SUMMARY | 2024-07-15 11:14 | XMS REPORT | Continuity of Care Document ---
Author Name Unknown Address [address] [place] [address] [facility] Address [address] [place] [address] Care Team Providers Care Senior Chemist Name Role Phone Nathaniel Carroll Attending Clinician Unavail able Payers Payer Name Policy Type Policy Number Effective Date Expirati on Date Source Allergies, Adverse Reactions, Alerts Allergy Name Allergy Type Status Severity Reaction(s) Onset Date Inactive Date Treating Clinician Comments Source No Known Allergie s DA Active U 09-21 00:00: 00 [facility] are [place] No Known Allergie s DA Active U 09-21 00:00: 00 [facility] are [place] Encounters Start Date/Time End Date/Time Encounter Type Admission Type Attending Clinicians Care Facility Care Department Encounter ID Source 2020-09-21 12:55:39 Inpatient Nathaniel Carroll [facility] [id number] [facility] are [place] Results Test Description Test Time Test Comments Results Result Co mments Source BASIC METABOLIC [id number] 10:35:00* Test Item Value Reference Range Interpretation [...]
[2024-07-15] MEDS ORDERED: NA CHLORIDE 0.9% 1,000 ML ONE (12:18)
[2024-07-15 12:26] LABS: Absolute Basophils 0.1 K/uL (0-0.5); Absolute Eosinophils 0.1 K/uL (0-0.5); Absolute Lymphocytes (CBC) 2.7 K/uL (0.7-4.9); Absolute Monocytes 2.2 K/uL (0.1-1.3); Absolute Neutrophil 8.5 K/uL (1.8-8.0); Basophils % 0.9 % (0-1.3); Eosinophils % 0.9 % (0-4.4); Hematocrit 40.8 % (36.0-45.0); Lymphocytes % 20.1 % (15.3-44.8); MCH 31.2 pg (27.0-35.0); MCHC 34.2 g/dL (32.0-36.0); MCV 91.1 fL (80-100); MPV 8.8 fL (7.6-11.3); Monocytes % 15.9 % (3.3-12.3); Neutrophils % 62.2 % (41.7-73.7); Nucleated Red Blood Cells % 0.1 % (0-0); Platelets 188 thou/uL (152-406); RBC Red Blood Cell Count 4.48 M/uL (3.86-4.86); Red Cell Distribution Width 13.1 % (12.1-15.2)
[2024-07-15 12:48] LABS: Albumin 1.9 g/dL (3.4-5.0); Albumin/Globulin Ratio 0.6 (1.1-1.8); Anion Gap 8.1 mEq/L (5.0-15.0); Bilirubin Direct 0.3 mg/dL (0-0.2); Bilirubin Indirect, Calculated 0.7 mg/dL (0.2-0.8); Globulin 3.2 g/dL (2.3-3.5); Protein, Total 5.1 g/dL (6.4-8.2); Troponin High Sensitivity 39.7 pg/mL (<58.9)
[2024-07-15 12:50] LABS: Potassium 3.1 mEq/L (3.5-5.1)
--- NOTE | 2024-07-15 13:55 | RAD REPORT ---
EXAMINATION: ONE VIEW CHEST XR CLINICAL INDICATION: Female, 83 years old.,generalized weaknes TECHNIQUE: Frontal chest projection is submitted. Examination is limited by patient positioning and t echnique. COMPARISON: 07/05/2024 FINDINGS: The lungs are well inflated and clear apart from stable mild central interstitial prominence. No pne umothorax or sizable effusion. Blunting of the costophrenic angle again seen, may relate to pleural thickening or atelectasis. The heart is normal in size. Mediastinal contours are unremarkable. IMPRESSION: Stable mild central interstitial prominence, could relate to chronic interstitial changes or mild nik tral congestion.
--- NOTE | 2024-07-15 14:44 | ER ---
Nurse's Notes [facility] Name: Jigna Horne Age: 83 yrs Sex: Female : 1940 Arrival Date: 07/15/2024 Time: 11:12 Bed 13 Private MD: Diagnosis: Hypokalemia;Diarrhea, unspecified;Essential (primary) hypertension;Heart failure, unspecified Presentation: 07/15 11:40 Chief complaint: Patient states: Brought by EMS. Patient from home . Patient go2 complaining of diarrhea and weakness for \R\3 days. Had one episode of diarrhea yesterday and one this morning. Febrile for EMS- given tylenol IV and 250cc of NS. Was diagnosed with covid last week. Denies shortness of breath, chills, nausea, vomiting, chest pain. Coronavirus screen: Vaccine status: Patient reports receiving the 2nd dose of the covid vaccine. Client denies travel out of the [place] in the last 14 days. diarrhea, muscle pain, Client presents with at least one sign or symptom that may indicate coronavirus-19. Client reports previous positive COVID test result. Date of collection: July 06, 2024. Ebola Screen: Patient negative for fever greater than or equal to 101.5 degrees Fahrenheit, and additional compatible Ebola Virus Disease symptoms Patient denies exposure to infectious person. Patient denies travel to an Ebola-affected area in the 21 days before illness onset. Initial Sepsis Screen: Does the patient meet any 2 criteria? Temp <36.0*C (96.8*F)) or > 38.3*C (100.9*F). Does the patient have a suspected source of infection? No. Patient's initial sepsis screen is negative. Risk Assessment: Do you want to hurt yourself or someone else? Patient reports no desire to harm self or others. Onset of symptoms. 11:40 Method Of Arrival: EMS: [facility] go2 11:40 Acuity: SADIE 3 go2 11:46 Care prior to arrival: Medication(s) given: 250cc NS, tylenol 100mg IV IV initiated. 22 go2 GA, in the right wrist. Activity prior to arrival: None. Mechanism of Injury: No Mechanism of Injury. Triage Assessment: 11:47 General: Appears in no apparent distress. comfortable, Behavior is calm, cooperative, go2 appropriate for age. Pain: Denies pain. EENT: No deficits noted. Neuro: No deficits noted. Cardiovascular: No deficits noted. Respiratory: No deficits noted. GI: Reports diarrhea, Patient currently denies abdominal pain. : No deficits noted. Derm: No deficits noted. Musculoskeletal: Reports Generalized weakness. Historical: - PMHx: 11:47 High Cholesterol; Hypertension; go2 - Immunization history:: Adult Immunizations up to date, Client reports receiving the 2nd dose of the Covid vaccine. - Infectious Disease History:: Denies. - Social history:: Smoking status: Patient denies any tobacco usage or history of. Screenin:49 [facility] ED Fall Risk Assessment (Adult) History of falling in the last 3 months, go2 including since admission No falls in past 3 months (0 pts) Confusion or Disorientation No (0 pts) Intoxicated or Sedated No (0 pts) Impaired Gait Yes (1 pt) Mobility Assist Device Used Yes (1 pt) Altered Elimination No (0 pt) Score/Fall Risk Level 0 - 2 = Low Risk Oriented to surroundings, Maintained a safe environment, Educated pt \T\ family on fall prevention, incl call for assistance when getting out of bed, Assessed \T\ reinforced patient's understanding of fall precautions, Provided non-skid footwear. Abuse screen: Denies threats or abuse. Denies injuries from another. Nutritional screening: No deficits noted. Tuberculosis screening: No symptoms or risk factors identified. Assessment: 16:09 Reassessment: Patient appears in no apparent distress at this time. No changes from go2 previously documented assessment. 16:11 Reassessment: Parewick placed on patient at this time. go2 18:21 Reassessment: Patient appears in no apparent distress at this time. No changes from go2 previously documented assessment. Patient denies pain at this time. Patient states feeling better. Vital Signs: 11:40 BP 137 / 58; Pulse 74; Resp 16; Temp 98.5; Pulse Ox 96% ; Weight 72.57 kg; Height 5 ft. go2 0 in. ; 11:48 BP 137 / 58; Pulse 74; Resp 16; Temp 98.5; Pulse Ox 96% ; go2 16:09 BP 182 / 78; Pulse 58; Resp 16; Temp 97.8; Pulse Ox 100% ; go2 18:18 BP 178 / 80; Pulse 86; Resp 20; Temp 98.5; Pulse Ox 98% ; go2 11:40 Body Mass Index 31.25 (72.57 kg, 152.4 cm) go2 ED Course: 11:39 Patient arrived in ED. aa5 11:40 Gauri Sena, QUIQUE is Primary Nurse. go2 11:41 Andry Roy DO is Attending Physician. ms3 11:46 Triage completed. go2 11:48 Arm band placed on right wrist. Patient placed in waiting room, on a stretcher. go2 11:50 Patient has correct armband on for positive identification. Bed in low position. Call go2 light in reach. Side rails up X2. Adult w/ patient. Provided Education on: Fall risk. 11:50 Maintain EMS IV. Dressing intact. Site clean \T\ dry. Gauge \T\ site: 22 R wrist. Flushed go 2 with 10 mL NS. 12:20 Basic Metabolic Panel Sent. go2 12:20 CBC with Diff Sent. go2 12:20 LFT's Sent. go2 12:20 Magnesium Sent. go2 12:20 Troponin HS Sent. go2 13:13 XRAY Chest (1 view) In Process Unspecified. EDMS 14:43 Sandra Alanis MD is Hospitalizing Provider. ms3 15:47 BNP Sent. go2 15:48 Urinalysis w/ reflexes Sent. go2 18:17 Door closed. Noise minimized. Warm blanket given. Pillow given. Diet tray ordered. Head go2 of bed. Cleaned of incontinence. Linen changed. Cleaned of incontinence. Linen changed. 18:17 Troponin High Sensitivity Sent. go2 18:17 Troponin High Sensitivity Sent. go2 18:17 Inserted saline lock: 20 gauge in right forearm, using aseptic technique. go2 Administered Medications: 12:20 Drug: NS 0.9% IV 1000 ml IV at 1 bolus Per protocol; to be given as a bolus over 60 go2 minutes Route: IV; Rate: 1 bolus; Site: right wrist; 16:11 Follow up: IV Status: Completed infusion go2 15:47 Drug: Furosemide IVP 40 mg IVP once; give over 2 minutes Route: IVP; Site: right wrist; go2 15:48 Drug: Potassium Chloride PO 40 mEq PO once Route: PO; go2 Medication: 11:50 VIS not applicable for this client. go2 Output: 18:18 Urine: 800ml (Voided); Total: 800ml. go2 Outcome: 14:44 Decision to Hospitalize by Provider. ms3 22:10 Admitted to Med/surg accompanied by tech, via stretcher, with chart, go2 22:10 Condition: stable 22:10 Instructed on the need for admit, 22:10 Patient left the ED. go2 Signatures: Dispatcher [employer] EDFabiana Bose, RN RN aa5 Andry Roy, DO DO ms3 Gauri Sena, QUIQUE RN go2 Corrections: (The following items were deleted from the chart) 18:50 18:18 BP 178 / 80; Pulse 16bpm; Resp 20bpm; Pulse Ox 98%; Temp 98.5F; go2 go2
--- NOTE | 2024-07-15 14:44 | EDPHYS ---
Physician Documentation [facility] Name: Jigna Horne Age: 83 yrs Sex: Female : 1940 Arrival Date: 07/15/2024 Time: 11:12 Bed 13 Private MD: ED Physician Andry Roy HPI: 07/15 12:00 This 83 yrs old Female presents to ER via EMS with unknown complaint. ms3 12:00 83-year-old female with past medical history of hyperlipidemia, hypertension presents ms3 to the emergency department via [facility] for generalized weakness, diarrhea, decreased appetite. Patient's granddaughter states patient recently admitted for COVID-pneumonia.. Historical: - PMHx: 11:47 High Cholesterol; Hypertension; go2 - Immunization history:: Adult Immunizations up to date, Client reports receiving the 2nd dose of the Covid vaccine. - Infectious Disease History:: Denies. - Social history:: Smoking status: Patient denies any tobacco usage or history of. ROS: 12:00 Cardiovascular: Negative for chest pain, and palpitations. Respiratory: Negative for ms3 shortness of breath, cough, wheezing, and pleuritic chest pain, Abdomen/GI: Negative for abdominal pain, nausea, vomiting, diarrhea, and constipation, 12:00 Constitutional: Positive for Generalized weakness, decreased apetite, Exam: 12:00 Constitutional: This is a well developed, well nourished patient who is awake, alert, ms3 and in no acute distress. Cardiovascular: Regular rate and rhythm with a normal S1 and S2. No gallops, murmurs, or rubs. Normal PMI, no JVD. No pulse deficits. Respiratory: Lungs have equal breath sounds bilaterally, clear to auscultation and percussion. No rales, rhonchi or wheezes noted. No increased work of breathing, no retractions or nasal flaring. Abdomen/GI: Soft, non-tender, with normal bowel sounds. No distension or tympany. No guarding or rebound. No evidence of tenderness throughout. Skin: Warm, dry with normal turgor. Normal color with no rashes, no lesions, and no evidence of cellulitis. MS/ Extremity: Pulses equal, no cyanosis. Neurovascular intact. Full, normal range of motion. 12:00 ENT: Ear canal(s): are normal, TM's: are normal, 12:43 ECG was reviewed by the Attending Physician. ms3 Vital Signs: 11:40 BP 137 / 58; Pulse 74; Resp 16; Temp 98.5; Pulse Ox 96% ; Weight 72.57 kg; Height 5 ft. go2 0 in. ; 11:48 BP 137 / 58; Pulse 74; Resp 16; Temp 98.5; Pulse Ox 96% ; go2 16:09 BP 182 / 78; Pulse 58; Resp 16; Temp 97.8; Pulse Ox 100% ; go2 18:18 BP 178 / 80; Pulse 86; Resp 20; Temp 98.5; Pulse Ox 98% ; go2 11:40 Body Mass Index 31.25 (72.57 kg, 152.4 cm) go2 MDM: 11:58 Medical Screening Exam initiated ms3 12:00 Differential Diagnosis Electrolyte abnormality vs Dehydration vs PNA. ms3 14:45 Data reviewed: vital signs, nurses notes, lab test result(s), radiologic studies, and ms3 as a result, I will admit patient. Consideration of Admission/Observation Patient was admitted/placed on observation. Management of patient was discussed with the following: Hospitalist: Dr Alanis. I considered the following discharge prescriptions or medication management in the emergency department Medications were administered in the Emergency Department. See MAR. Independent interpretation of the following test(s) in the Emergency Department EKG: See my EKG interpretation above. Historians other than the Patient: Patient's granddaughter. Counseling: I had a detailed discussion with the patient and/or guardian regarding the historical points, exam findings, and any diagnostic results supporting the discharge/admit diagnosis, lab results, radiology results, the need for further work-up and treatment in the hospital. ED course: Discussed case with Dr. Alanis he would like patient to have stool sent for C. difficile, a proBNP, Lasix 40 mg IV x 1. He would like patient placed in observation. Discussed plans with the patient and her family. They understand agree with plan.. 07/15 11:59 Order name: Basic Metabolic Panel; Complete Time: 13:18 ms3 07/15 11:59 Order name: CBC with Diff; Complete Time: 12:38 ms3 07/15 11:59 Order name: LFT's; Complete Time: 13:18 ms3 07/15 11:59 Order name: Magnesium; Complete Time: 13:18 ms3 07/15 11:59 Order name: Troponin HS; Complete Time: 13:18 ms3 07/15 14:42 Order name: Urinalysis w/ reflexes; Complete Time: 17:20 ms3 07/15 14:42 Order name: BNP; Complete Time: 17:20 ms3 07/15 14:45 Order name: C.difficile ms3 07/15 16:42 Order name: CBC with Automated Diff EDMS 07/15 16:42 Order name: CBC with Automated Diff EDMS 07/15 16:42 Order name: Comprehensive Metabolic Panel EDMS 07/15 16:42 Order name: Comprehensive Metabolic Panel EDMS 07/15 16:42 Order name: Troponin High Sensitivity EDMS 07/15 16:42 Order name: Troponin High Sensitivity EDMS 07/15 16:42 Order name: Troponin High Sensitivity EDMS 07/15 16:42 Order name: Troponin High Sensitivity EDMS 07/15 11:59 Order name: XRAY Chest (1 view); Complete Time: 13:55 ms3 07/15 11:59 Order name: Cardiac monitoring; Complete Time: 12:41 ms3 07/15 11:59 Order name: EKG - Nurse/Tech; Complete Time: 12:40 ms3 07/15 11:59 Order name: IV Saline Lock; Complete Time: 12:20 ms3 07/15 11:59 Order name: Labs collected and sent; Complete Time: 12:20 ms3 07/15 11:59 Order name: O2 Per Protocol; Complete Time: 12:20 ms3 07/15 11:59 Order name: O2 Sat Monitoring; Complete Time: 12:20 ms3 07/15 15:52 Order name: Labs - recollect needed: green top; Complete Time: 18:17 bc6 EC:43 Rate is 66 beats/min. Rhythm is regular. QRS [place] is Normal. [place] interval is normal. QRS ms3 interval is normal. Clinical impression: NSR w/ Non-specific ST/T Changes. Interpreted by me. Reviewed by me. Administered Medications: 12:20 Drug: NS 0.9% IV 1000 ml IV at 1 bolus Per protocol; to be given as a bolus over 60 go2 minutes Route: IV; Rate: 1 bolus; Site: right wrist; 16:11 Follow up: IV Status: Completed infusion go2 15:47 Drug: Furosemide IVP 40 mg IVP once; give over 2 minutes Route: IVP; Site: right wrist; go2 15:48 Drug: Potassium Chloride PO 40 mEq PO once Route: PO; go2 Disposition Summary: 07/15/24 14:44 Hospitalization Ordered Notes: Hospitalization Status: Observation ms3 Provider: Sandra Alanis ms3 Location: Telemetry/MedSurg (observation) ms3 Condition: Stable ms3 Problem: new ms3 Symptoms: are unchanged ms3 Bed/Room Type: Standard ms3 Room Assignment: 218(07/15/24 19:06) kmf Diagnosis - Hypokalemia ms3 - Diarrhea, unspecified ms3 - Essential (primary) hypertension ms3 - Heart failure, unspecified ms3 Forms: - Medication Reconciliation Form ms3 - SBAR form ms3 - Leadership Thank You Letter ms3 Signatures: Dispatcher [employer] EDMS Andry Roy, DO ms3 Cheryl Mccullough Kaye Leon kmf Gauri Sena, QUIQUE RN go2 Corrections: (The following items were deleted from the chart) 14:42 14:42 PROBNP+C.LAB.BRZ ordered. EDMS EDMS 19:06 14:44 ms3 kmf
[2024-07-15] MEDS ORDERED: POTASSIUM CL SA 10 MEQ TAB PO ONE (15:14)
[2024-07-15] MEDS ORDERED: FUROSEMIDE 40 MG/4 ML VIAL ONE (15:15)
[2024-07-15 16:04] LABS: Specific Gravity 1.007 (1.005-1.030); Sqamous Epithelial <5 /HPF (None Seen); Urine Bacteria None Seen /HPF (<20); Urine Bilirubin NEGATIVE (Negative); Urine Blood Negative (Negative); Urine Clarity Clear (Clear); Urine Color Light-Yellow (Yellow); Urine Culture Reflex Order NOT NEEDED; Urine Glucose NEGATIVE (Negative); Urine Ketones NEGATIVE (Negative); Urine Microscopic Reflex YN ORDER UMIC; Urine Nitrite NEGATIVE (Negative); Urine Protein NEGATIVE (Negative); Urine RBC <5 /HPF (None Seen); Urine Urobilinogen Normal (Normal); Urine WBC <5 /HPF (<5); Urine Yeast (Budding) Trace /HPF (None Seen); Urine pH 6.5 (5.0-7.0)
[2024-07-15] MEDS ORDERED: ONDANSETRON 4 MG/2 ML VIAL IV PRN (16:38)
--- NOTE | 2024-07-15 22:24 | RAD REPORT ---
EXAMINATION: CT Thorax Wo Con CLINICAL INDICATION: Female, 83 years old. [facility] MAIN dyspnea Y TECHNIQUE: Axial CT scan of the chest without intravenous contrast. Multiplanar reformats were genera fani and reviewed. One or more of the following dose reduction techniques were used: Automated exposure control, adjustment of the mA and/or kV according patient size, and/or iterative reconstruct ion. Unless otherwise specified, incidental findings do not require dedicated imaging follow-up. COMPARISON: 09/22/2020 FINDINGS: LOWER NECK: Visualized thyroid gland and soft tissues are normal. LUNGS: Mild streaky perihilar and dependent platelike atelectasis. The lungs are otherwise clear. No evidence of airspace or interstitial process. No worrisome nodules. PLEURA: No pleural effusion. No pneumothorax. . MEDIASTINUM AND LYMPH NODES: No mediastinal mass or fluid collection. Normal size mediastinal, hilar, and axillary lymph nodes. OSSEOUS STRUCTURES AND CHEST WALL: Mild Schmorl's node formation at virtually deformities at multiple levels, stable.. UPPER ABDOMEN: Status post cholecystectomy. IMPRESSION: No acute or significant abnormalities. Examination is limited by lack of contrast. Stable findings as above.
[2024-07-15 22:36] VITALS: O2SAT 98
--- NOTE | 2024-07-15 22:46 | HP ---
Date of Admission: 07/15/2024 Chief Complaint: Feeling weak, tired, short of breath, and diarrhea. History Of Present Illness: This is an 83-year-old pleasant female patient, who was admitted to [facility] over a week ago with COVID-19 infection. After the patient was treated in hospital, she was sent home with paxlovid and tapering dose of prednisone. Today, she came back to emergency room with complaints of generalized weakness, feeling very tired and weak, and short of breath as well as having diarrhea for last 2 days. Denies any abdominal pain, nausea, vomiting. After she was evaluat ed in emergency room, I was contacted requesting admission to hospital. When I saw her, she was stil l in emergency room waiting for her bed assignment, lying in bed, not in distress. Physical Examination: Vital Signs: Temperature , pulse , respiratory rate , blood pressure _ , oxygen saturation , height 5 feet inches, weight pounds. General: Awake, alert, oriented, not in distress. HEENT: Head atraumatic, normocephalic. Conjunctivae nonerythematous. Sclerae white. Mouth, no thr ush or edema noted. Ears/Nose, no mass, lesion, discharge noted. Neck: Supple. No JVD, lymph nodes, bruit, thyromegaly noted. Lungs: Presence of some bibasilar rales. Not using accessory muscles of respiration. Heart: Normal heart sounds, no murmur or gallop. Abdomen: Soft, bowel sounds normal. No guarding, rigidity, tenderness, mass, hepatosplenomegaly, dis tention, or bruit noted. Extremities: Bilateral trace leg edema. Skin: No rash, ulcer, cellulitis. Lymphatics: No lymph node enlargement in neck, supraclavicular, infraclavicular region. Neuro: No focal neurological deficit. Chest: Unremarkable. External Genitalia: Deferred. Rectal: Deferred. Laboratory Data: WBC 13.6, hemoglobin 14, and platelet count of 188. Sodium 133, potassium 3.1, chl oride 99, bicarb 29, BUN 16, creatinine 0.81, glucose 112. Liver function tests unremarkable. ProBN P 2083. Initial troponin 39.7, second troponin 42.6. Urinalysis normal. Stool for C diff was order ed, result pending. Chest x-ray shows stable mild central interstitial prominence. Impression: 1. Chronic diastolic heart failure, with acute exacerbation. 2. Generalized weakness. 3. Debility. 4. Diarrhea. 5. Rule out Clostridium difficile colitis. 6. Hypertension. 7. Hyperlipidemia. 8. Hypothyroidism. 9. Peripheral neuropathy. 10. Insomnia. 11. Rheumatoid arthritis with neuropathy. 12. Urge incontinence. 13. Diverticulosis. 14. Depression. Plan: Admit the patient to hospital for further evaluation and management of this problem. For the patient's congestive heart failure, we will treat it with IV Lasix per order and monitor the patient' s condition and consider adjustment on medication if necessary. For diarrhea, we will order stool fo r C diff. Depending on the result, we will decide if further intervention is needed or not. For hyp ertension, we will continue her antihypertensive medication and no need for further intervention. Fo r steroid, we will continue her prednisone 10 mg daily. For hypothyroidism, no need for further inte rvention. Continue medication per order. We will also go ahead and order a CAT scan of the chest to day without contrast for further evaluation and her last echocardiogram from February 17, 2024. Res ults reviewed showing normal ejection fraction of 55% to 60% with diastolic dysfunction. Total time spent today was 80 minutes including review of last hospital admission record from 025, review of last office visit record, performing today's evaluation and management, communication with emergency room physician, and review of last echocardiogram result. GARTH/MODL Voice ID: [id number]
[2024-07-16] MEDS ORDERED: cloNIDine HCL 0.1 MG TAB PO PRN (00:22)
[2024-07-16 03:40] LABS: STOOL CONSISTENCY Formed/Solid (soft)
[2024-07-16 03:41] LABS: C.diff Antigen/Toxin Ag neg : Tox neg (NEG : NEG); CDIFF INTERNAL NEG CONTROL White Background (WHITE BKGD)
[2024-07-16 04:45] LABS: Absolute Basophils 0.1 K/uL (0-0.5); Absolute Eosinophils 0.1 K/uL (0-0.5); Absolute Lymphocytes (CBC) 2.4 K/uL (0.7-4.9); Absolute Neutrophil 11.2 K/uL (1.8-8.0); Basophils % 0.6 % (0-1.3); Eosinophils % 0.6 % (0-4.4); Hematocrit 44.4 % (36.0-45.0); Hemoglobin 14.7 g/dL (12.0-15.0); Lymphocytes % 14.9 % (15.3-44.8); MCH 30.7 pg (27.0-35.0); MCHC 33.1 g/dL (32.0-36.0); MCV 92.6 fL (80-100); Monocytes % 12.8 % (3.3-12.3); Neutrophils % 71.1 % (41.7-73.7); Nucleated Red Blood Cells % 0.2 % (0-0); Platelets 173 thou/uL (152-406); RBC Red Blood Cell Count 4.79 M/uL (3.86-4.86); Red Cell Distribution Width 13.4 % (12.1-15.2)
[2024-07-16 04:58] LABS: Albumin 2.2 g/dL (3.4-5.0); Albumin/Globulin Ratio 0.6 (1.1-1.8); Anion Gap 6.4 mEq/L (5.0-15.0); Bilirubin Total 1.2 mg/dL (0.2-1.0); Globulin 3.5 g/dL (2.3-3.5); Potassium 3.4 mEq/L (3.5-5.1); Protein, Total 5.7 g/dL (6.4-8.2)
[2024-07-16 08:10] VITALS: BMI 32.5
[2024-07-16] MEDS: HYDRALAZINE HCL 25 MG TABLET PO SCH (08:27)
[2024-07-16] MEDS: AMLODIPINE 5 MG TAB PO SCH (08:27)
[2024-07-16] MEDS: FUROSEMIDE 40 MG/4 ML VIAL IV SCH (08:27)
[2024-07-16] MEDS: ENOXAPARIN 40 MG/0.4 ML SQ SCH (08:27)
[2024-07-16] MEDS: LOSARTAN POTASSIUM 50 MG TABLET PO SCH (08:28)
[2024-07-16] MEDS: predniSONE 10 MG TAB PO SCH (08:28)
[2024-07-16] MEDS: ACETAMINOPHEN 500 MG TAB PO PRN (08:28)
[2024-07-16] MEDS: POTASSIUM CL SA 10 MEQ TAB PO ONE (10:03)
[2024-07-16] MEDS: DULERA 200/5 (MOMETASONE/FORMOTEROL) INHALER IH SCH (10:03)
--- NOTE | 2024-07-16 13:41 | PN ---
Date of Progress Note: 07/16/2024 Subjective: The patient was seen this morning for followup. She was ambulating well with physical t herapy today. Overall, no new complaints, problems reported overnight. Her family member was with h er at bedside when I saw her today. The patient was sitting at bedside, not in distress. Denies any new complaints overnight. Objective: Vital Signs: Reviewed. HEENT: Unremarkable. Lungs: Clear to auscultation except minimal basal rales. Heart: Sounds normal. Abdomen: Soft. Bowel sounds normal. No guarding, rigidity, tenderness, distention. Extremities: No leg edema. Laboratory Data: WBC 15.8, hemoglobin 14.7, and platelets 173. Sodium 136, potassium 3.4, chloride 100, bicarb 33, BUN 15, creatinine 0.87, glucose 94. Liver function tests unremarkable. Troponin 39 .2. Stool for C diff came back negative. CAT scan of the chest without contrast done last night was negative for any acute findings. Impression: 1. Congestive heart failure, chronic, diastolic with acute exacerbation. 2. Rule out chronic obstructive pulmonary disease. 3. Hypertension. Plan: We will continue current antihypertensive medication. Clonidine was also ordered for p.r.n. u se. I will continue to monitor blood pressure if necessary, adjust medication. Continue Lasix 40 mg IV daily per order and I have added Dulera inhaler and albuterol nebulizer treatment. I will see he r tomorrow for followup, possible discharge to go home over the weekend depending on her condition. I have also communicated with her regarding advance directives and in the event of cardiopulmonary ar rest, the patient informed me she does not want any heroic measures like CPR, defibrillation, or ventilator support, and DNR order will be beatrice frances in the chart per her decision. GARTH/MODL Voice ID: [id number] Report ID: [id number]
--- NOTE | 2024-07-16 13:42 | EKG ---
Test Date: 2024-07-15 Test Time: 12:40:41 [employer] Certified Network Associate: ADEN MEASUREMENT RESULTS: Intervals: Rate: 66 DC: 150 QRSD: 78 QT: 418 QTc: 438 [place]: P: 30 DC: 150 QRS: 41 T: -87 INTERPRETIVE STATEMENTS: Sinus rhythm with premature atrial complexes Nonspecific ST and T wave abnormality Abnormal ECG Compared to ECG 07/05/2024 04:45:52 Atrial premature complex(es) now present ST (T wave) deviation now present Myocardial infarct finding no longer present Electronically Signed On 07-16-24 13:38:48 MARKET RESEARCH WORKER by Ameya Barrios
[2024-07-16] MEDS: ALBUTEROL 2.5 MG/3 ML NEB SOL NEB SCH (15:05)
[2024-07-17 05:36] LABS: Absolute Eosinophils 0.1 K/uL (0-0.5); Absolute Monocytes 2.1 K/uL (0.1-1.3); Absolute Neutrophil 8.7 K/uL (1.8-8.0); Basophils % 0.2 % (0-1.3); Eosinophils % 1.1 % (0-4.4); Hematocrit 41.3 % (36.0-45.0); Hemoglobin 13.8 g/dL (12.0-15.0); Lymphocytes % 21.4 % (15.3-44.8); MCH 30.7 pg (27.0-35.0); MCHC 33.4 g/dL (32.0-36.0); MCV 91.9 fL (80-100); MPV 8.5 fL (7.6-11.3); Monocytes % 14.9 % (3.3-12.3); Neutrophils % 62.4 % (41.7-73.7); Nucleated Red Blood Cells % 0.1 % (0-0); Platelets 175 thou/uL (152-406); RBC Red Blood Cell Count 4.49 M/uL (3.86-4.86); Red Cell Distribution Width 13.5 % (12.1-15.2)
[2024-07-17 06:17] LABS: Anion Gap 5.8 mEq/L (5.0-15.0); Magnesium 1.8 mg/dL (1.6-2.4); Potassium 3.8 mEq/L (3.5-5.1)
[2024-07-17] MEDS: MAGNESIUM SULFATE 1 gm IVPB 1 GM/100 ML BAG IV ONE (09:32)
[2024-07-17] MEDS: POTASSIUM CL SA 10 MEQ TAB PO ONE (09:33)
[2024-07-17 13:52] VITALS: BP 115/69; TEMP 98.2
== END 2024-07-17 16:32 | disposition home or self-care (01) | DRG 291 ==
LOC: ER 11:12 → ERHOLD 16:38 → OBSVTOIN 20:26 → 2ND 21:51
PROVIDERS: ADMIT Internal Medicine; ATTEND Internal Medicine
DX: I11.0 Hypertensive heart disease with heart failure (principal); I50.33 Acute on chronic diastolic (congestive) heart failure; E78.00 Pure hypercholesterolemia, unspecified; E87.6 Hypokalemia; E03.9 Hypothyroidism, unspecified; G47.00 Insomnia, unspecified; G62.9 Polyneuropathy, unspecified; M06.9 Rheumatoid arthritis, unspecified; N39.41 Urge incontinence; F32.A Depression, unspecified; K57.90 Diverticulosis of intestine, part unspecified, without perforation or abscess without bleeding; Z66 Do not resuscitate; Z86.16 Personal history of COVID-19; Z79.890 Hormone replacement therapy; Z79.899 Other long term (current) drug therapy
CPT/HCPCS: 36415; 71045; 71250; 80048; 80053; 80076; 81001; 83735; 83880; 84484; 85025; 87324; 93005; 94640; 96361; 96374; 97116; 97161; 99285; G0378; J1650; J1940; J3475; J3535; J7030; J7512; J7613

== ENCOUNTER 2024-07-22 18:15 | Inpatient (IN) | payer OTHER ==
--- OUTSIDE RECORDS SUMMARY | 2024-07-22 18:18 | XMS REPORT | Continuity of Care Document ---
Author Name Unknown Address [address] [place] [address] [facility] Address [address] [place] [address] Care Team Providers Care Commercial Floor Covering Installer Name Role Phone Nathaniel Carroll Attending Clinician Unavail able Payers Payer Name Policy Type Policy Number Effective Date Expirati on Date Source Allergies, Adverse Reactions, Alerts Allergy Name Allergy Type Status Severity Reaction(s) Onset Date Inactive Date Treating Clinician Comments Source No Known Allergie s DA Active U 09-21 00:00: 00 [facility] are [place] No Known Allergie s DA Active U 09-21 00:00: 00 [facility] are [place] Encounters Start Date/Time End Date/Time Encounter Type Admission Type Attending Clinicians Care Facility Care Department Encounter ID Source 2020-09-21 12:55:39 Inpatient Nathaniel Carroll [facility] [id number] [facility] are [place] Results Test Description Test Time Test Comments Results Result Co mments Source BASIC METABOLIC [id number] 10:35:00* Test Item Value Reference Range Interpretation [...] Notes Date/Time Note Provider Source 2020-09-25 10:18:00 [id number] [address] PATIENT NAME: EDU MORALEZ ADMIT DATE: 09/27/20 ACCOUNT NO: [id number] ROOM NO: AGE: 80 REPORT TYPE: eELECTROCARDIOGRAM SEX: F ADMITTING PHYSICIAN: ATTENDING PHYSICIAN:Nathaniel Carroll MD Order: [id number] Test Reason : ANESTHESIA PRE OP Test [...] ECGs available Confirmed by MD Kellie, Manuel ([id number]) on 09/28/2020 12:28:47 AM Referred By: Nathaniel Carroll Confirmed by:Manuel Hopkins MD at [address] [address] PATIENT NAME: EDU MORALEZ [facility]
--- NOTE | 2024-07-22 20:59 | RAD REPORT ---
EXAMINATION: ONE VIEW CHEST XR CLINICAL INDICATION: Female, 83 years old.,hypoxia TECHNIQUE: Frontal chest projection is submitted. Examination is limited by patient positioning and t echnique. COMPARISON: July 15, 2024 FINDINGS: The lungs are diffusely emphysematous but grossly clear. No pneumothorax or sizable effusion. The he art is normal in size. Mediastinal contours are unchanged with tortuosity of the thoracic aorta. IMPRESSION: No acute intrathoracic abnormalities.
[2024-07-22 21:03] LABS: Absolute Eosinophils 0.1 K/uL (0-0.5); Absolute Lymphocytes (CBC) 1.4 K/uL (0.7-4.9); Absolute Monocytes 1.7 K/uL (0.1-1.3); Absolute Neutrophil 9.5 K/uL (1.8-8.0); Basophils % 0.3 % (0-1.3); Eosinophils % 0.5 % (0-4.4); Hematocrit 41.8 % (36.0-45.0); Hemoglobin 14.2 g/dL (12.0-15.0); Lymphocytes % 10.7 % (15.3-44.8); MCH 30.8 pg (27.0-35.0); MCHC 33.9 g/dL (32.0-36.0); MCV 90.9 fL (80-100); MPV 8.5 fL (7.6-11.3); Monocytes % 13.1 % (3.3-12.3); Neutrophils % 75.4 % (41.7-73.7); Nucleated Red Blood Cells % 0.1 % (0-0); Platelets 219 thou/uL (152-406); RBC Red Blood Cell Count 4.59 M/uL (3.86-4.86); Red Cell Distribution Width 13.6 % (12.1-15.2)
[2024-07-22 21:23] LABS: Albumin 2.1 g/dL (3.4-5.0); Albumin/Globulin Ratio 0.5 (1.1-1.8); Anion Gap 11.1 mEq/L (5.0-15.0); Bilirubin Total 0.9 mg/dL (0.2-1.0); Globulin 4.5 g/dL (2.3-3.5); Magnesium 2.2 mg/dL (1.6-2.4); Potassium 3.1 mEq/L (3.5-5.1); Protein, Total 6.6 g/dL (6.4-8.2)
[2024-07-22 21:25] LABS: Specific Gravity 1.013 (1.005-1.030); Sqamous Epithelial <5 /HPF (None Seen); Urine Bacteria None Seen /HPF (<20); Urine Bilirubin NEGATIVE (Negative); Urine Blood Negative (Negative); Urine Clarity Turbid (Clear); Urine Color Yellow (Yellow); Urine Culture Reflex Order NOT NEEDED; Urine Glucose NEGATIVE (Negative); Urine Ketones TRACE (Negative); Urine Micro Reflex YN NO BILL MICROSCOPIC; Urine Nitrite NEGATIVE (Negative); Urine Protein TRACE (Negative); Urine RBC <5 /HPF (None Seen); Urine Urobilinogen Normal (Normal); Urine WBC <5 /HPF (<5); Urine pH 5.5 (5.0-7.0)
--- NOTE | 2024-07-22 21:30 | EDPHYS ---
Physician Documentation [facility] Name: Jigna Horne Age: 83 yrs Sex: Female : 1940 Arrival Date: 07/22/2024 Time: 18:15 Bed 8 Private MD: ED Physician Nehemiah Starks HPI: 07/22 20:09 This 83 yrs old Female presents to ER via Wheelchair with complaints of sb4 Weakness - Sent by pcp. 20:09 Family reports that patient has been very weak and her blood pressure has been sb4 fluctuating over the past few days. She was recently admitted a week or so ago for weakness. Family called PCP about the symptoms and he instructed them to come to the ED. Patient's only complaint is that she is feeling weak. Family states that she had not had a bowel movement in quite some time so they gave her a laxative today. Historical: - Allergies: 18:45 No Known Allergies; iw - PMHx: 18:45 High Cholesterol; Hypertension; iw 18:45 Arthritis; Diverticulitis; hashimotos; iw - PSHx: 18:45 knee; hysterectomy; Cholecystectomy; eye; iw - Immunization history:: Adult Immunizations up to date. - Infectious Disease History:: Denies. - Social history:: Smoking status: Smoking status: Patient denies any tobacco usage or history of. ROS: 20:09 Constitutional: Negative for fever, chills, and weight loss, sb4 20:09 Neuro: Positive for weakness, 20:09 All other systems are negative, Exam: 20:10 Head/Face: Normocephalic, atraumatic. Eyes: Extra-ocular motions intact. Periorbital sb4 areas with no swelling, redness, or edema. ENT: Mucous membranes moist. Cardiovascular: Regular rate and rhythm with a normal S1 and S2. Respiratory: No increased work of breathing, no retractions or nasal flaring. Abdomen/GI: Soft, non-tender, no distension. Skin: Warm, dry with normal turgor. Normal color with no rashes, no lesions, and no evidence of cellulitis. 20:10 Constitutional: The patient appears in no acute distress, alert, awake, obviously ill, Vital Signs: 18:43 BP 139 / 110; Pulse 70; Resp 16; Temp 98.3(O); Pulse Ox 89% on R/A; Weight 75.75 kg; iw Height 5 ft. 0 in. ; 21:40 BP 147 / 71; Pulse 106; Resp 25; Temp 98.3; Pulse Ox 92% ; Pain 3/10; bm8 22:53 BP 135 / 93; Pulse 102; Resp 22; Temp 98.3; Pulse Ox 96% on 2 lpm NC; Pain 0/10; bm8 18:43 Body Mass Index 32.61 (75.75 kg, 152.4 cm) iw 21:40 Pain Scale: Adult bm8 22:53 Pain Scale: Adult bm8 Morton Coma Score: 20:45 Eye Response: spontaneous(4). Motor Response: obeys commands(6). Verbal Response: bm8 oriented(5). Total: 15. 22:53 Eye Response: spontaneous(4). Motor Response: obeys commands(6). Verbal Response: bm8 oriented(5). Total: 15. MDM: 18:42 Medical Screening Exam initiated sb4 21:29 Data reviewed: vital signs, nurses notes, lab test result(s), radiologic studies, and sb4 as a result, I will admit patient. Consideration of Admission/Observation Patient was admitted/placed on observation. Counseling: I had a detailed discussion with the patient and/or guardian regarding the historical points, exam findings, and any diagnostic results supporting the discharge/admit diagnosis, lab results, radiology results, the need for further work-up and treatment in the hospital. 07/22 18:47 Order name: CBC with Diff; Complete Time: 21:03 sb4 07/22 18:47 Order name: CMP; Complete Time: 21:24 sb4 07/22 18:47 Order name: Lipase; Complete Time: 21:24 sb4 07/22 18:47 Order name: Magnesium; Complete Time: 21:24 sb4 07/22 18:47 Order name: Phosphorus; Complete Time: 21:24 sb4 07/22 18:49 Order name: UAM; Complete Time: 21:26 sb4 07/22 18:49 Order name: Osmolality, Serum; Complete Time: 21:12 sb4 07/22 18:49 Order name: Urine Osmolality; Complete Time: 21:45 sb4 07/22 18:49 Order name: Urine Potassium Random; Complete Time: 21:34 sb4 07/22 18:49 Order name: Urine Sodium Random; Complete Time: 21:34 sb4 07/22 18:50 Order name: BNP; Complete Time: 21:09 sb4 07/22 22:19 Order name: Lactate w/ 2H reflex if indic. EDMS 07/22 22:19 Order name: Urinalysis w/ reflexes EDMS 07/22 22:19 Order name: Basic Metabolic Panel EDMS 07/22 22:19 Order name: Basic Metabolic Panel EDMS 07/22 22:19 Order name: CBC with Automated Diff EDMS 07/22 22:19 Order name: CBC with Automated Diff EDMS 07/22 22:24 Order name: Magnesium EDMS 07/22 22:24 Order name: Phosphorus EDMS 07/22 22:26 Order name: T3 Free EDMS 07/22 22:26 Order name: T4 Free EDMS 07/22 22:26 Order name: Thyroid Stimulating Hormone EDMS 07/22 22:26 Order name: Vitamin B12 Level EDMS 07/22 22:26 Order name: Vitamin D, 25 (OH), TOTAL EDMS 07/22 22:26 Order name: Vitamin D,1,25 Dihydroxy EDMS 07/22 22:27 Order name: Basic Metabolic Panel EDMS 07/22 22:27 Order name: Basic Metabolic Panel EDMS 07/22 22:27 Order name: Basic Metabolic Panel EDMS 07/22 22:27 Order name: Basic Metabolic Panel EDMS 07/22 22:27 Order name: Basic Metabolic Panel EDMS 07/22 22:27 Order name: Basic Metabolic Panel EDMS 07/22 22:27 Order name: Basic Metabolic Panel EDAZ 07/22 18:47 Order name: Chest Single View XRAY; Complete Time: 21:00 sb4 07/22 22:26 Order name: Occupational Therapy Consult EDAZ 07/22 18:47 Order name: IV Saline Lock; Complete Time: 21:14 sb4 07/22 18:47 Order name: Labs collected and sent; Complete Time: 21:14 sb4 07/22 18:47 Order name: O2 Per Protocol; Complete Time: 19:26 sb4 Administered Medications: 22:09 Not Given (Physician Discretion): ns 0.45 % with kcl20 meq/l 1000 ml IV at 75 ml/hr oncebm8 Disposition Summary: 07/22/24 21:29 Hospitalization Ordered Notes: Hospitalization Status: Inpatient Admission sb4 Provider: Prince Sam sb4 [facility] sb4 Condition: Fair sb4 Problem: new sb4 Symptoms: are unchanged sb4 Bed/Room Type: Standard sb4 Room Assignment: 413(07/22/24 22:38) rv1 Diagnosis - Hypo-osmolality and hyponatremia sb4 - Weakness sb4 - Hypoxemia sb4 Forms: - Medication Reconciliation Form sb4 - SBAR form sb4 - Leadership Thank You Letter sb4 Addendum: 07/26/2024 07:00 Co-signature as Attending Physician, Nehemiah Starks MD I reviewed the patient's care r t provided by the Advanced Practice Provider and agree with the diagnosis and treatment plan. Signatures: Dispatcher [employer] Pamela Ayala RN RN iw Lexus Kimble, PA-C PA-C sb4 Nehemiah Starks MD MD rt Tsering Giron rv1 Charles Cortez RN bm8 Corrections: (The following items were deleted from the chart) 07/22 22:24 22:19 Magnesium ordered. EDMS EDMS 22:24 22:19 Phosphorus ordered. EDMS EDMS 22:38 21:29 sb4 rv1
--- NOTE | 2024-07-22 21:30 | ER ---
Nurse's Notes [facility] Name: Jigna Horne Age: 83 yrs Sex: Female : 1940 Arrival Date: 07/22/2024 Time: 18:15 Bed 8 Private MD: Diagnosis: Hypo-osmolality and hyponatremia;Weakness;Hypoxemia Presentation: 07/22 18:42 Chief complaint: Patient's son or daughter states: her BP has been dropping low and iw then going high, has been happening since the . Coronavirus screen: At this time, the client does not indicate any symptoms associated with coronavirus-19. 18:42 Method Of Arrival: Wheelchair iw 18:42 Acuity: SADIE 3 iw 18:43 Ebola Screen: No symptoms or risks identified at this time. Initial Sepsis Screen: Does iw the patient meet any 2 criteria? No. Patient's initial sepsis screen is negative. Does the patient have a suspected source of infection? No. Patient's initial sepsis screen is negative. Risk Assessment: Do you want to hurt yourself or someone else? Patient reports no desire to harm self or others. Onset of symptoms was July 20, 2024. 18:47 Acuity: SADIE 2 iw Historical: - Allergies: 18:45 No Known Allergies; iw - PMHx: 18:45 High Cholesterol; Hypertension; iw 18:45 Arthritis; Diverticulitis; hashimotos; iw - PSHx: 18:45 knee; hysterectomy; Cholecystectomy; eye; iw - Immunization history:: Adult Immunizations up to date. - Infectious Disease History:: Denies. - Social history:: Smoking status: Smoking status: Patient denies any tobacco usage or history of. Screenin:45 [facility] ED Fall Risk Assessment (Adult) History of falling in the last 3 months, bm8 including since admission Yes- physiologic fall (2 pts) Confusion or Disorientation No (0 pts) Intoxicated or Sedated No (0 pts) Impaired Gait Yes (1 pt) Mobility Assist Device Used Yes (1 pt) Altered Elimination Yes (1 pt) Score/Fall Risk Level 3 or more points = High Risk Oriented to surroundings, Maintained a safe environment, Educated pt \T\ family on fall prevention, incl call for assistance when getting out of bed, Assessed \T\ reinforced patient's understanding of fall precautions, Hourly rounding (assess needs \T\ fall precautionary measures) done, Used ambulatory aids as needed (educated on \T\ assisted with), Used gait belt as appropriate. Abuse screen: Denies threats or abuse. Nutritional screening: No deficits noted. Tuberculosis screening: No symptoms or risk factors identified. Assessment: 20:45 General: Appears in no apparent distress. comfortable, Behavior is calm, cooperative, bm8 appropriate for age. 20:45 Pain: Complains of pain in groin Pain currently is 3 out of 10 on a pain scale. Quality bm8 of pain is described as burning. Neuro: No deficits noted. Level of Consciousness is awake, alert, obeys commands, Oriented to person, place, time, situation, Appropriate for age. Cardiovascular: Denies chest pain, Heart tones S1 S2 present Capillary refill < 3 seconds in bilateral fingers Patient's skin is warm and dry. Respiratory: Airway is patent Respiratory effort is even, unlabored, Respiratory pattern is regular, symmetrical. GI: No signs and/or symptoms were reported involving the gastrointestinal system. : Reports burning with urination, urgency, urinary frequency. EENT: No signs and/or symptoms were reported regarding the EENT system. Derm: No signs and/or symptoms reported regarding the dermatologic system. Musculoskeletal: Reports weakness in all over. 22:53 Reassessment: Patient appears in no apparent distress at this time. Patient and/or bm8 family updated on plan of care and expected duration. Pain level reassessed. Patient is alert, oriented x 3, equal unlabored respirations, skin warm/dry/pink. Patient denies pain at this time. Patient states feeling better. Patient states symptoms have improved. Vital Signs: 18:43 BP 139 / 110; Pulse 70; Resp 16; Temp 98.3(O); Pulse Ox 89% on R/A; Weight 75.75 kg; iw Height 5 ft. 0 in. ; 21:40 BP 147 / 71; Pulse 106; Resp 25; Temp 98.3; Pulse Ox 92% ; Pain 3/10; bm8 22:53 BP 135 / 93; Pulse 102; Resp 22; Temp 98.3; Pulse Ox 96% on 2 lpm NC; Pain 0/10; bm8 18:43 Body Mass Index 32.61 (75.75 kg, 152.4 cm) iw 21:40 Pain Scale: Adult bm8 22:53 Pain Scale: Adult bm8 Speedy Coma Score: 20:45 Eye Response: spontaneous(4). Motor Response: obeys commands(6). Verbal Response: bm8 oriented(5). Total: 15. 22:53 Eye Response: spontaneous(4). Motor Response: obeys commands(6). Verbal Response: bm8 oriented(5). Total: 15. ED Course: 18:17 Patient arrived in ED. ra3 18:24 Lexus Kimble PA-C is PHCP. sb4 18:24 Nehemiah Starks MD is Attending Physician. sb4 18:42 Triage completed. iw 18:46 Arm band placed on. iw 19:10 SARA DUMAS, QUIQUE is Primary Nurse. dd2 19:25 Missed attempt(s): 20 gauge in right antecubital area. vk 19:50 Chest Single View XRAY In Process Unspecified. EDMS 20:45 Patient has correct armband on for positive identification. Placed in gown. Bed in low bm8 position. Call light in reach. Side rails up X2. Adult w/ patient. Provided Education on: need for admission. Client placed on continuous cardiac and pulse oximetry monitoring. NIBP monitoring applied. conveyor attendant on. Pulse ox on. NIBP on. Door closed. Noise minimized. Warm blanket given. Pillow given. Verbal reassurance given. Head of bed elevated. 20:45 Oxygen administration via nasal cannula \T\ 2L/min. bm8 21:14 No provider procedures requiring assistance completed. Initial lab(s) drawn, by co, bm8 sent to lab. Urine collected: straight cath specimen, clear. Inserted saline lock: 20 gauge in left antecubital area, using aseptic technique. upper arm, using aseptic technique. Blood collected. Patient maintains SpO2 saturation greater than 95% on room air. 21:29 Prince Vargas MD is Hospitalizing Provider. sb4 22:53 Patient admitted, IV remains in place. bm8 Administered Medications: 22:09 Not Given (Physician Discretion): ns 0.45 % with kcl20 meq/l 1000 ml IV at 75 ml/hr oncebm8 Medication: 20:45 VIS not applicable for this client. bm8 Outcome: 21:29 Decision to Hospitalize by Provider. sb4 22:53 Admitted to Tele accompanied by nurse, via stretcher, room 403, with chart, bm8 22:53 Condition: stable 22:53 Instructed on follow up and referral plans. the need for admit, Demonstrated understanding of follow-up care, medications, 23:39 Patient left the ED. bm8 Signatures: Dispatcher [employer] Pamela Ayala, RN RN iw Lexus Kimble, LENIN PAElvis [email or web address] Sona Renteria ra3 Bhavana Moore Brad RN RN bm8 SARA DUMAS RN RN dd2 Corrections: (The following items were deleted from the chart) 18:45 18:42 Chief complaint: Patient's son or daughter states: her BP has been dropping low iw and then going high, has been happening since the iw 18:47 18:43 BP 139 / 110; Pulse 70bpm; Resp 16bpm; Pulse Ox 90%; Temp 98.3F Oral; iw iw 21:33 21:31 General: Appears in no apparent distress. comfortable, Behavior is calm, bm8 cooperative, appropriate for age, bm8 21:40 20:45 BP 147 / 71; Pulse 106bpm; Resp 25bpm; Pulse Ox 92%; Temp 98.3F; Pain 3/10, bm8 Adult; bm8
[2024-07-22 21:33] LABS: UR SODIUM < 15 mmol/L (27-287)
[2024-07-22] MEDS ORDERED: ACETAMINOPHEN 500 MG TAB PO PRN (22:14)
--- NOTE | 2024-07-22 22:23 | P.HP ---
Certification for Inpatient Patient admitted to: Inpatient With expected LOS: >2 Midnights Practitioner: I am a practitioner with admitting privileges, knowledge of patient current condition, hospital course, and medical plan of care. Services: Services provided to patient in accordance with Admission requirements found in Title 42 Section 412.3 of the Code of Federal Regulations Patient History Date of Service: 07/23/24 Reason for admission: Hyponatremia, generalized weakness History of Present Illness: Patient is a 83-year-old female with a past medical history of rheumatoid arthritis, atrial fibrillation. She presented to the ER for evaluation of generalized weakness. This has been ongoing for the past week. They were instructed by their PCP to present to the ER. Patient is also reporting constipation. Workup in the ER revealed that she was hypoxic. Her sodium is 125. Patient is taking HCTZ at home Allergies No Known Drug Allergies Allergy (Verified 09/21/20 00:26) Unknown Home Medications: Aspirin 81 mg PO DAILY 09/21/20 Hydralazine HCl [Apresoline] 1 tab PO BID 02/16/24 Losartan Potassium 50 mg PO DAILY 02/16/24 Amlodipine Besylate 5 mg PO DAILY 07/23/24 Furosemide 40 mg PO DAILY 07/23/24 Gabapentin 300 mg PO BEDTIME 07/23/24 Leflunomide 20 mg PO DAILY 07/23/24 Potassium Chloride 10 meq PO BID 07/23/24 hydroCHLOROthiazide [Hydrochlorothiazide] 12.5 mg PO DAILY 07/23/24 predniSONE [Deltasone] 5 mg PO DAILY 07/23/24 - Past Medical/Surgical History Diabetic: No -: htn -: dvt -: diverticulitis -: hypothyroid -: rheumatoid arthritis -: cataract -: asthma -: neuropathy -: hyperlipidemia -: joel -: hysterectomy -: left knee -: tubal ligation -: cataract surgery - Family History Sister -: Hypertension, Cancer Brother -: Cancer - Social History Alcohol use: No CD- Drugs: No Caffeine use: Yes Physical Examination - Physical Exam General: Other (Patient is frail) HEENT: Atraumatic, Normocephalic Respiratory: Normal air movement Cardiovascular: No edema, Normal S1 S2, Irregular heart rate/rhythm Neurological: Normal speech - Studies Laboratory Data (last 24 hrs) 07/22/24 07/22/24 20:37 20:37 WBC 12.70 H Hgb 14.2 Hct 41.8 Plt Count 219 Sodium 125 L Potassium 3.1 L BUN 25 H Creatinine 1.17 H Glucose 103 Phosphorus 3.0 Magnesium 2.2 Total Bilirubin 0.9 AST 15 ALT 19 Alkaline Phosphatase 62 Lipase 28 Assessment and Plan - Problems (Diagnosis) (1) Generalized weakness Current Visit: Yes Status: Acute (2) Rheumatoid arthritis Current Visit: Yes Status: Acute (3) Atrial fibrillation Current Visit: Yes Status: Acute (4) Hyponatremia Current Visit: Yes Status: Acute (5) HTN (hypertension) Current Visit: No Status: Acute - Plan Assessment This is a 83-year-old female with a past medical history of atrial fibrillation and rheumatoid arthritis. She is being admitted for generalized weakness. Workup in the ER showed she was hyponatremic with a sodium 125, hypokalemic with a potassium of 3.1. The patient's mental status is at baseline. Generalized weakness Hypokalemia Hyponatremia Rheumatoid arthritis Atrial fibrillation Plan: Admit inpatient with telemetry Fluid restriction Hold HCTZ Replete electrolytes including potassium. Check magnesium and phosphorus Urine lites consistent with hypotonic hyponatremia Will give a normal saline bolus BMP every 4 hours PT/OT before discharge - Advance Directives Does patient have a Living Will: No Does patient have a Durable POA for Healthcare: No
[2024-07-22] MEDS ORDERED: POTASSIUM CL 40 MEQ in NA CHLORIDE 0.9% 500 ML IV SCH (23:00)
[2024-07-23] MEDS: KCL 20 MEQ/100 mL IVPB 100 ML IV SCH (00:06)
[2024-07-23] MEDS: NA CHLORIDE 0.9% 1,000 ML IV ONE (00:06)
[2024-07-23 01:35] VITALS: BMI 28.1
[2024-07-23] MEDS: ONDANSETRON 4 MG/2 ML VIAL IV PRN (01:44)
[2024-07-23] MEDS: POTASSIUM 25 MEQ EFFERV TAB PO ONE (01:44)
[2024-07-23 01:47] LABS: T3 Free 1.57 pg/mL (2.18-3.98); Thyroid Stimulating Hormone 1.86 uIU/mL (0.358-3.740)
[2024-07-23 03:13] LABS: Anion Gap 10.5 mEq/L (5.0-15.0); Magnesium 2.3 mg/dL (1.6-2.4); Phosphorus 3.1 mg/dL (2.5-4.9); Potassium 3.5 mEq/L (3.5-5.1)
[2024-07-23 06:22] LABS: Absolute Eosinophils 0.1 K/uL (0-0.5); Absolute Lymphocytes (CBC) 1.7 K/uL (0.7-4.9); Absolute Monocytes 1.2 K/uL (0.1-1.3); Absolute Neutrophil 6.1 K/uL (1.8-8.0); Basophils % 0.2 % (0-1.3); Eosinophils % 1.2 % (0-4.4); Hematocrit 38.4 % (36.0-45.0); Lymphocytes % 18.9 % (15.3-44.8); MCHC 33.9 g/dL (32.0-36.0); MCV 91.5 fL (80-100); MPV 8.6 fL (7.6-11.3); Monocytes % 13.2 % (3.3-12.3); Neutrophils % 66.5 % (41.7-73.7); Nucleated Red Blood Cells % 0.2 % (0-0); Platelets 222 thou/uL (152-406); RBC Red Blood Cell Count 4.19 M/uL (3.86-4.86); Red Cell Distribution Width 13.8 % (12.1-15.2)
[2024-07-23 06:38] LABS: Anion Gap 10.8 mEq/L (5.0-15.0); Potassium 4.8 mEq/L (3.5-5.1)
[2024-07-23] MEDS: ENOXAPARIN 30 MG/0.3 ML SQ SCH (07:48)
[2024-07-23] MEDS: HYDRALAZINE HCL 25 MG TABLET PO SCH (07:48)
[2024-07-23] MEDS: HOME MED 1 EA UNK (Leflunomide [Leflunomide] 20 MG Tablet) PO SCH (07:49)
[2024-07-23] MEDS: predniSONE 5 MG TAB PO SCH (07:49)
[2024-07-23] MEDS: AMLODIPINE 5 MG TAB PO SCH (07:49)
[2024-07-23] MEDS: ASPIRIN 81 MG CHEWABLE TABLET PO SCH (07:49)
[2024-07-23] MEDS: NS KCL 20MEQ 20 MEQ/1,000 ML BAG IV SCH ×2 (07:50→16:04)
[2024-07-23] MEDS ORDERED: LOPERAMIDE HCL 2 MG CAPSULE PO PRN (11:11)
[2024-07-23] MEDS: LOPERAMIDE HCL 2 MG CAPSULE PO ONE (11:38)
--- NOTE | 2024-07-23 14:31 | P.PN ---
Subjective Date of Service: 07/23/24 Chief Complaint: Hyponatremia, generalized weakness Subjective: No new changes Patient states that she is weak, poor oral intake, diarrhea after taking magnesium oxide for constipation. Her daughter at bedside states that she is taking diuretics for heart failure with leg edema. Review of Systems Other: Consitutional; fever(-), chills (-), rigor(-), night sweat(-), unintentional weight loss(-), malaise (+) HEENT; diplopia (-), rhinorrhea (-), epistaxis (-), otorrhea (-), otalgia (-) Respiratory; shortness of breath (-), wheezing (-), cough (-), sputum (-), pleuritic chest pain (-) Cardiovascular; chest pain (-), peripheral edema (-), paroxysmal nocturnal dyspnea (-), orthopnea (-) Gastrointestinal; nausea (-), vomiting (-), abdominal pain (-), diarrhea (+), constipation (-), melena (-), hematochezia (-) Genitourinary; urinary frequency (-), dysuria (-), urgency (-), flank pain (-), gross hematuria (-), incontinence (-) Skin; rash (-), pruritus (-) DIRECTOR OF REHABILITATIVE SERVICES; headache (-), paresthesia (-), numbness (-), paralysis (-) Physical Examination - Vital Signs Temperature: 97.7 F Blood Pressure: 130/62 Pulse: 70 Respirations: 16 Pulse Ox (%): 96 - Physical Exam Other Physical/Emotional Findings: - Physical Exam. General: Fragile, chronic ill-looking , in no apparent distress,. HEENT: Dry oral mucosa normocephalic, atraumatic, nonicteric sclera, nonanemic conjunctive. Neck: Supple, without JVD or goiter or thyroid mass. Respiratory: Normal breathing effort, clear to auscultation bilaterally, no crackles no wheezing or rhonchi. Cardiovascular: Regular rate and rhythm, S1, S2 normal, no murmur no gallop. Gastrointestinal: Normal bowel sounds, nondistended, nontender, No ascites, , No masses, no hepatosplenomegaly. Extremities : No clubbing, No peripheral edema,. Integumentary: No rashes, petechia, suspected lesions. Lymphatics: No axilla or cervical lymphadenopathy. Neurology; alert awake oriented x3, no focal neurologic deficit, normal affection . mood and behavior. - Studies Laboratory Data (last 24 hrs) 07/22/24 07/22/24 20:37 20:37 WBC 12.70 H Hgb 14.2 Hct 41.8 Plt Count 219 Sodium 125 L Potassium 3.1 L BUN 25 H Creatinine 1.17 H Glucose 103 Phosphorus 3.0 Magnesium 2.2 Total Bilirubin 0.9 AST 15 ALT 19 Alkaline Phosphatase 62 Lipase 28 Assessment And Plan - Plan This is a 83-year-old female with a past medical history of atrial fibrillation and rheumatoid arthritis on maintenance steroid and leflunomide, congestive heart failure on furosemide and hydrochlorothiazide. She is being admitted for generalized weakness. Workup in the ER showed she was hyponatremic with a sodium 125, hypokalemic with a potassium of 3.1. The patient's mental status is at baseline. #1 hypovolemic hyponatremia secondary to diuretics and diarrhea Hyponatremia workup reviewed, serum osmolality 265, urine osmolality 361, urine sodium less than 15, Serum sodium increased to 1 26-2 25 after normal saline infusion, compatible with hypovolemic hyponatremia, I will continue IV hydration with normal saline and recheck serum electrolyte around 3 PM today and tomorrow morning #2 laxative induced diarrhea I will order Imodium as needed #3 history of atrial fibrillation not on anticoagulation Heart rate at target without any AV magno DVT prophylaxis enoxaparin subcu Disposition; plan to send her back home in a couple of days
[2024-07-23 15:52] LABS: Anion Gap 7.4 mEq/L (5.0-15.0); Potassium 4.4 mEq/L (3.5-5.1)
[2024-07-23] MEDS: GABAPENTIN 300 MG CAP PO SCH (21:20)
[2024-07-24 06:25] LABS: Anion Gap 6.8 mEq/L (5.0-15.0); Potassium 3.8 mEq/L (3.5-5.1)
[2024-07-24] MEDS: POTASSIUM 25 MEQ EFFERV TAB PO ONE (08:12)
[2024-07-24 08:13] VITALS: BP 133/60
[2024-07-24 08:31] VITALS: TEMP 97.8
--- NOTE | 2024-07-24 09:04 | P.DS ---
Admission Date: 07/22/24 Discharge Date: 07/24/24 Disposition: ROUTINE DISCHARGE Discharge Condition: GOOD Reason for Admission: Hyponatremia, generalized weakness Brief History of Present Illness: This is a 83-year-old female with a past medical history of atrial fibrillation and rheumatoid arthritis on maintenance steroid and leflunomide, congestive heart failure on furosemide and hydrochlorothiazide. She is being admitted for generalized weakness. Workup in the ER showed she was hyponatremic with a sodium 125, hypokalemic with a potassium of 3.1. The patient's mental status is at baseline. She was admitted on general medical floor Hospital Course: She was treated with IV hydration with normal saline and potassium supplement, her furosemide, chlorothiazide and losartan were held. Her diarrhea resolved on its own. Her sodium improved to 133, serum potassium corrected. She has felt much better after IV hydration. She is being discharged home. It is advised to resume furosemide and losartan but hold hydrochlorothiazide and follow-up with her PCP with a repeat lab test. #1 hypovolemic hyponatremia secondary to diuretics and diarrhea Resolving Hyponatremia workup on admission, serum sodium 125, serum osmolality 265, urine osmolality 361, urine sodium less than 15, Serum sodium responded to normal saline infusion, compatible with hypovolemic hyponatremia, #2 dehydration due to diuretics and diarrhea Resolved with IV hydration #3 laxative induced diarrhea I will order Imodium as needed #4 history of atrial fibrillation not on anticoagulation and hypertension Heart rate at target without any AV magno, blood pressure reasonably controlled on amlodipine #5 history of heart failure with unknown ejection fraction her Diuretics was held for dehydration #6 mild PIEDAD related #2 Resolved Vital Signs/Physical Exam: Temp Pulse Resp BP Pulse Ox 97.8 F 73 16 133/60 96 07/24/24 08:00 07/24/24 08:12 07/24/24 08:00 07/24/24 08:12 07/24/24 08:00 Other Physical/Emotional Findings: - Physical Exam. General: Fragile, chronic ill-looking , in no apparent distress,. HEENT: Dry oral mucosa normocephalic, atraumatic, nonicteric sclera, nonanemic conjunctive. Neck: Supple, without JVD or goiter or thyroid mass. Respiratory: Normal breathing effort, clear to auscultation bilaterally, no crackles no wheezing or rhonchi. Cardiovascular: Regular rate and rhythm, S1, S2 normal, no murmur no gallop. Gastrointestinal: Normal bowel sounds, nondistended, nontender, No ascites, , No masses, no hepatosplenomegaly. Extremities : No clubbing, No peripheral edema,. Integumentary: No rashes, petechia, suspected lesions. Lymphatics: No axilla or cervical lymphadenopathy. Neurology; alert awake oriented x3, no focal neurologic deficit, normal affection . mood and behavior. Laboratory Data at Discharge: WBC 9.20 thou/uL (4.3-10.9) 07/23/24 05:29 Hgb 13.0 g/dL (12.0-15.0) D 07/23/24 05:29 Hct 38.4 % (36.0-45.0) 07/23/24 05:29 Plt Count 222 thou/uL (152-406) 07/23/24 05:29 Sodium 133 mEq/L (136-145) L D 07/24/24 05:41 Potassium 3.8 mEq/L (3.5-5.1) D 07/24/24 05:41 BUN 23 mg/dL (7-18) H 07/24/24 05:41 Creatinine 0.77 mg/dL (0.55-1.02) 07/24/24 05:41 Glucose 88 mg/dL (74-106) 07/24/24 05:41 Phosphorus 3.1 mg/dL (2.5-4.9) 07/23/24 02:00 Magnesium Cancelled 07/23/24 02:24 Total Bilirubin 0.9 mg/dL (0.2-1.0) 07/22/24 20:37 AST 15 U/L (15-37) 07/22/24 20:37 ALT 19 U/L (13-56) 07/22/24 20:37 Alkaline Phosphatase 62 U/L (45-117) 07/22/24 20:37 Lipase 28 U/L (13-75) 07/22/24 20:37 Home Medications: Aspirin 81 mg PO DAILY 09/21/20 Hydralazine HCl [Apresoline] 1 tab PO BID 02/16/24 Losartan Potassium 50 mg PO DAILY 02/16/24 Amlodipine Besylate 5 mg PO DAILY 07/23/24 Furosemide 40 mg PO DAILY 07/23/24 Gabapentin 300 mg PO BEDTIME 07/23/24 Leflunomide 20 mg PO DAILY 07/23/24 Potassium Chloride 10 meq PO BID 07/23/24 predniSONE [Prednisone*] 5 mg PO DAILY 07/23/24 Diet: AHA Activity: Ad astrid Followup: César Alanis MD [Primary Care Provider] -
[2024-07-24 09:38] VITALS: O2SAT 98
[2024-07-27 18:10] LABS: 1,25 Dihydroxy Vitamin D3 18 pg/mL; Vitamin D 1,25-Dihydroxy Total 18 pg/mL (18-72); Vitamin D,1,25-OH2, D2 <8 pg/mL
== END 2024-07-24 10:49 | disposition home or self-care (01) | DRG 641 ==
LOC: ER 18:15 → ERHOLD 22:14 → 4TH 22:58
PROVIDERS: ADMIT Internal Medicine; ATTEND Internal Medicine
DX: E87.1 Hypo-osmolality and hyponatremia (principal); K52.1 Toxic gastroenteritis and colitis; N17.9 Acute kidney failure, unspecified; E87.6 Hypokalemia; E78.00 Pure hypercholesterolemia, unspecified; M06.9 Rheumatoid arthritis, unspecified; I11.0 Hypertensive heart disease with heart failure; I50.9 Heart failure, unspecified; I48.91 Unspecified atrial fibrillation; E86.0 Dehydration; M19.90 Unspecified osteoarthritis, unspecified site; T47.4X5A Adverse effect of other laxatives, initial encounter; Z90.49 Acquired absence of other specified parts of digestive tract; Z90.710 Acquired absence of both cervix and uterus; Z79.82 Long term (current) use of aspirin; Z79.52 Long term (current) use of systemic steroids; Z79.899 Other long term (current) drug therapy
CPT/HCPCS: 36415; 71045; 80048; 80053; 81001; 82306; 82607; 82652; 83605; 83690; 83735; 83880; 83930; 83935; 84100; 84132; 84300; 84439; 84443; 84481; 85025; 99285; J1650; J2405; J3480; J7030; J7512